=== PATIENT | male | born 1960 | race Caucasian/White ===

== ENCOUNTER 2019-05-26 15:51 | Emergency (ER) | payer MEDICAID ==
[~2019-05-26] VITALS: Ht 157.5 cm; Wt 66.2 kg
[2019-05-26 15:56] VITALS: BP 118/72
[2019-05-26] MEDS ORDERED: DICYCLOMINE HCL LIQUID 20 MG, ALUMINUM HYD/MAG/SIMETHICONE 30 ML, LIDOCAINE VISCOUS 2% ... PO ONE ×3 (16:05)
[2019-05-26 17:27] VITALS: BP 115/70
== END 2019-05-26 17:25 | disposition home or self-care (01) ==
LOC: MED 15:51
DX: K21.9 Gastro-esophageal reflux disease without esophagitis (principal); H61.21 Impacted cerumen, right ear; E11.9 Type 2 diabetes mellitus without complications; I10 Essential (primary) hypertension; Z98.890 Other specified postprocedural states
CPT/HCPCS: 99283

== ENCOUNTER 2019-06-01 15:33 | Inpatient (IN) | payer MEDICAID ==
[~2019-06-01] VITALS: Ht 142.2 cm; Wt 66.2 kg
[2019-06-01 15:38] VITALS: BP 119/84
--- NOTE | 2019-06-01 16:50 | NUR ---
PATIENT AMBULATED TO BED 12.
[2019-06-01] MEDS ORDERED: NACL 0.9% 1,000 ML IV ONE (17:05)
--- NOTE | 2019-06-01 17:20 | NUR ---
PATIENT OUT OF ROOM IN RADIOLOGY TELEGRAPHIC TYPEWRITER MECHANIC TO ATTEMPT ABG AT A LATER TIME
--- NOTE | 2019-06-01 17:34 | NUR ---
PT ARRIVED TO ED C/O INTERMITTENT EPIGASTRIC PAIN X 1 WEEK. RATES PAIN LEVEL 8/10 AND DESCRIBES IT BURNING. ABD SOFT, AND FLAT, BS PRESENT IN ALL 4 QUADS. NO RESP DISTRESS NOTED. VS STABLE. NO N,V,D. PT FAMILY MEMBER AT BEDSIDE SAYS' "HE HASNT BEEN HUNGRY LATELY." PMH: DM, HIGH CHOLSTEROL NKA.
--- NOTE | 2019-06-01 17:52 | NUR ---
ABG COMPLETED PRESSURE APPLIED AT PUNCTURE SITE NO EVIDENCE OF HEMATOMA
[2019-06-01 17:59] LABS: BASOPHILS % (AUTO) 0.4 % (0.0-2.0); EOSINOPHILS # (AUTO) 0.5 K/uL (0-0.4); EOSINOPHILS % (AUTO) 5.3 % (0.0-4.0); HEMATOCRIT 35.7 % (36-52); HEMOGLOBIN 11.7 g/dL (12.0-18.0); LYMPHOCYTES # (AUTO) 0.5 K/uL (2.0-11.5); LYMPHOCYTES % (AUTO) 4.8 % (20.5-51.1); MEAN CORPUSCULAR HEMOGLOBIN 31 pg (27-31); MEAN CORPUSCULAR HGB CONC 33 g/dL (33-37); MEAN CORPUSCULAR VOLUME 92.8 fL (80-94); MONOCYTES # (AUTO) 0.7 K/uL (0.8-1.0); MONOCYTES % (AUTO) 6.9 % (1.7-9.3); NEUTROPHILS # (AUTO) 8.2 K/uL (1.8-7.7); NEUTROPHILS % (AUTO) 82.6 % (42.2-75.2); PLATELET COUNT (AUTO) 351 K/uL (140-450); RED BLOOD CELL COUNT(AUTO) 3.84 MIL/uL (4.20-6.10); WHITE BLOOD COUNT (AUTO) 9.9 K/uL (4.8-10.8)
[2019-06-01] MEDS ORDERED: PIPERACILLIN/TAZOBACTAM 3.375 GM in DEXTROSE 5% 50 ML IV ONE (18:05)
[2019-06-01] MEDS ORDERED: PIPERACILLIN/TAZOBACTAM 3.375 GM VIAL IV ONE (18:10)
[2019-06-01] MEDS ORDERED: DOCUSATE SODIUM 100 MG GELCAP PO PRN (18:20)
[2019-06-01] MEDS ORDERED: HYDROcodone/APAP 7.5/325 MG 1 TAB PO PRN (18:20)
[2019-06-01] MEDS ORDERED: ONDANSETRON 4 MG/2 ML VIAL IM/IVP PRN (18:20)
[2019-06-01 18:24] LABS: ANION GAP 14.6 (8-16); CREATININE 0.9 mg/dL (0.7-1.3); POTASSIUM 3.6 mmol/L (3.5-5.1)
[2019-06-01 18:28] LABS: ALBUMIN 2.6 g/dL (3.4-5.0); TOTAL BILIRUBIN 1.4 mg/dL (0.0-1.0)
[2019-06-01] MEDS ORDERED: ALBUTEROL SULFATE/IPRATROPIU 3 ML SOL IH PRN (18:40)
[2019-06-01] MEDS ORDERED: TICA90TA PO (18:52)
[2019-06-01] MEDS ORDERED: METF850T PO (18:52)
[2019-06-01] MEDS ORDERED: CHOL200072 PO (18:52)
[2019-06-01] MEDS ORDERED: OMEP20TC10 PO (18:52)
[2019-06-01] MEDS ORDERED: ATOR20TA PO (18:52)
[2019-06-01] MEDS ORDERED: NITROGLYCERIN 0.4 MG TAB SL ONE (19:05)
--- NOTE | 2019-06-01 19:05 | NUR ---
PT HAS PRODUCTVE COUGH.
--- NOTE | 2019-06-01 19:10 | NUR ---
RECEIVED REPORT FROM JEREMY GILES. PT IN BED RESTING VSS AT THIS TIME. DAUGHTER AT BEDSIDE. WILL CONTINUE TO MONITOR CLOSELY.
[2019-06-01] MEDS: NACL 0.9% 1,000 ML IV SCH (19:25)
[2019-06-01 19:33] LABS: PROTHROMBIN TIME 11.1 secs (10.8-13.4)
[2019-06-01 20:00] LABS: CHOL/HDL RATIO 2.9 (1-4.5); MAGNESIUM 1.4 mg/dL (1.8-2.4); THYROID STIMULATING HORMONE 1.46 uIU/mL (0.34-3.74)
[2019-06-01] MEDS ORDERED: POLYETHYLENE GLYCOL 17 GM/PKT PO SCH (20:00)
--- NOTE | 2019-06-01 20:35 | NUR ---
PATIENT ADMITTED UNDER THE CARE OF DR. ALISON CONNELL. BELONGINGS LIST COMPLETED. PT TRANSPORTED VIA [facility] AT THIS TIME. PT WILL GO TO TELEMETRY ROOM 105A. BEDSIDE REPORT GIVEN TO JEREMY MEJIA.
[2019-06-01] MEDS ORDERED: hePARIN / DEXT 5% PREMIX 250 ML IV SCH (20:45)
[2019-06-01] MEDS ORDERED: HEPARIN PER PHARMACY MC PRN (20:45)
[2019-06-01 20:57] LABS: FREE T4 (FREE THYROXINE) 1.59 ng/dL (0.76-1.46)
[2019-06-01 21:00] VITALS: BP 150/80
[2019-06-01] MEDS: ALBUTEROL SULFATE/IPRATROPIU 3 ML SOL IH PRN (21:03)
--- NOTE | 2019-06-01 21:20 | NUR ---
2102 PATIENT GIVEN HHNTX. PATIENT HAS SOB DUE TO RALES BILAT. UNABLE TO DO INCENTIVE SPIROMETER DUE TO SOB. PATIENT PLACED ON 6 L OXYMIZER.PATIENT UNABLE TO GIVE SPUTUM SAMPLE AT THIS TIME
[2019-06-01] MEDS ORDERED: FUROSEMIDE 20 MG/2 ML VIAL IVP SCH (21:30)
[2019-06-01] MEDS ORDERED: MAG SULF 2000 MG/WATER PREMIX 50 ML IV SCH (21:30)
[2019-06-01] MEDS ORDERED: METOPROLOL SUCCINATE 50 MG TABER PO SCH (21:30)
[2019-06-01] MEDS: DOCUSATE SODIUM 100 MG GELCAP PO SCH (21:59)
--- NOTE | 2019-06-01 22:00 | NUR ---
ADMITTED 58 Y.O.M FROM ER.PLACED ON BED.TELE APPLIED AND SHOWING ST.RESP.IS SLIGHTLY LABORED.CALL SYSTEM EXPLAINED AND IN REACH.IVF OF NS AT 100ML/H THAT STARTED IN ER STILL INFUSING.CARE PLAN DISCUSSED W/PT AND FAMILY.THEY VERBALIZED UNDERSTANDINGS.WILL CONTINUE MONITORING.
[2019-06-01] MEDS: hePARIN / DEXT 5% PREMIX 250 ML IV SCH (22:29)
[2019-06-01] MEDS: BLOOD GLUCOSE MONITORING 1 DEV DEV FS SCH (22:30)
--- NOTE | 2019-06-01 23:00 | NUR ---
HEPARIN DRIP AT RATE OF 600ML/H STARTED AFTER 3000 UNITS BOLUS IV GIVEN.WILL MONITOR PTT.
[2019-06-02] MEDS ORDERED: PANTOPRAZOLE 40 MG INJ VIAL IVP SCH (00:50)
[2019-06-02] MEDS: guaiFENesin 20 MG/ML UDC PO PRN ×2 (01:31→17:15)
--- NOTE | 2019-06-02 02:00 | NUR ---
HAD COUGH MED GIVEN ALSO ONE DOSE OF PROTONIX IVP GIVEN FOR EPIGASTRIC PAIN.HR STILL IS ST.
[2019-06-02] MEDS ORDERED: INFLUENZA VACCINE QUAD 0.5 ML SYR IMVAC PRN (02:40)
[2019-06-02] MEDS ORDERED: PNEUMOCOCCAL VACCINE 23 MCG/0.5 ML VIAL IMVAC PRN (02:40)
[2019-06-02 03:43] LABS: APPEARANCE,URINE CLEAR (CLEAR); BILIRUBIN,URINE NEGATIVE (NEGATIVE); BLOOD, URINE NEGATIVE (NEGATIVE); COLOR,URINE YELLOW (YELLOW); LEUKOCYTE ESTERASE ,URINE NEGATIVE (NEGATIVE); NITRITE, URINE NEGATIVE (NEGATIVE); PH,URINE 5.5 (5.0-9.0); UGLUCOSE NEGATIVE (NEGATIVE)
[2019-06-02 04:00] VITALS: BP 146/82
[2019-06-02 04:18] LABS: BARBITURATE, URINE NEG. ng/ml (NEG <=200); BENZODIAZEPINE, URINE NEG. ng/mL (NEG <=200); CANNABINOID, URINE NEG. ng/mL (NEG <=50); COCAINE, URINE NEG. ng/mL (NEG <=300); OPIATE, URINE NEG. ng/mL (NEG <=2000); PHENCYCLIDINE SCREEN,URINE NEG. ng/mL (NEG <=25)
[2019-06-02] MEDS ORDERED: PIPERACILLIN/TAZOBACTAM 3.375 GM VIAL IV ONE (04:48)
[2019-06-02] MEDS ORDERED: PIPERACILLIN/TAZOBACTAM 3.375 GM in DEXTROSE 5% 50 ML IV SCH (05:00)
[2019-06-02] MEDS: hePARIN / DEXT 5% PREMIX 250 ML IV SCH ×3 (05:38→21:35)
--- NOTE | 2019-06-02 06:00 | NUR ---
PTT=33.6 3000HEPARIN BOLUS GIVEN THEN INCREASED RATE TO 800UNITS/H.NEXT PTT WILL BE AT 1135.RESP IS BETTER THAN LAST NIGHT.IS ON O2 .NO DISTRESS NOTED NOW.SU=[id number] DIDN'T COVER PT IS NPO FOR ABD.US WILL ENDORSE TO AM NURSE TO CHECK BS AFTER US DONE .
[2019-06-02 06:07] LABS: T4 (THYROXINE) 8.1 ug/dL (4.5-12.0)
[2019-06-02 06:51] LABS: ANION GAP 15.4 (8-16); CARBON DIOXIDE 24.3 mmol/L (21-32); MAGNESIUM 1.7 mg/dL (1.8-2.4); POTASSIUM 3.7 mmol/L (3.5-5.1)
[2019-06-02 06:53] LABS: BASOPHILS % (AUTO) 0.3 % (0.0-2.0); EOSINOPHILS % (AUTO) 0.2 % (0.0-4.0); HEMATOCRIT 32.8 % (36-52); HEMOGLOBIN 10.7 g/dL (12.0-18.0); LYMPHOCYTES # (AUTO) 0.3 K/uL (2.0-11.5); LYMPHOCYTES % (AUTO) 1.7 % (20.5-51.1); MEAN CORPUSCULAR HEMOGLOBIN 30 pg (27-31); MEAN CORPUSCULAR HGB CONC 33 g/dL (33-37); MEAN CORPUSCULAR VOLUME 92.7 fL (80-94); MONOCYTES # (AUTO) 0.6 K/uL (0.8-1.0); MONOCYTES % (AUTO) 3.7 % (1.7-9.3); NEUTROPHILS # (AUTO) 14.8 K/uL (1.8-7.7); NEUTROPHILS % (AUTO) 94.1 % (42.2-75.2); PLATELET COUNT (AUTO) 335 K/uL (140-450); RED BLOOD CELL COUNT(AUTO) 3.53 MIL/uL (4.20-6.10); RED CELL DISTRIBUTION WIDTH 13.2 % (11.6-13.7); WHITE BLOOD COUNT (AUTO) 15.8 K/uL (4.8-10.8)
--- NOTE | 2019-06-02 07:02 | NUR ---
RECEIVED REPORT FROM PLASTIC SHAPER NURSE. AAOX4, RESTING IN BED, NO C/O PAIN AT THIS TIME. PT ON TELE MONITOR. IV ON LT AC 20 GA AND LT FA 22 GA RUNNING IVF PER ORDER. BS ACTIVE, SOFT ABDOMEN. SKIN IS INTACT, WARM TO TOUCH. REVIEWED POC WITH PT, PT VERBALIZED UNDERSTANDING.
[2019-06-02] MEDS: ALBUTEROL SULFATE/IPRATROPIU 3 ML SOL IH PRN ×2 (07:08→13:06)
--- NOTE | 2019-06-02 07:25 | NUR ---
PT RECEIVED BREATHING TREATMENT. PT RESPIRATIONS EVEN AND UNLABORED ON 6L VIA OXIMIZER.
[2019-06-02] MEDS: BLOOD GLUCOSE MONITORING 1 DEV DEV FS SCH ×4 (07:34→21:00)
[2019-06-02 08:00] VITALS: BP 112/72
--- NOTE | 2019-06-02 08:02 | NUR ---
PATIENT HAS BEEN SCREENED AND CATEGORIZED MODERATE NUTRITION RISK. PATIENT WILL BE SEEN WITHIN 3-5 DAYS OF ADMISSION. 06/04/19 06/06/[address]
--- NOTE | 2019-06-02 08:33 | NUR ---
PT UNDERGOING ABDOMINAL ULTRASOUND AT THIS TIME, PT HAS NO SIGNS OF DISTRESS.
[2019-06-02] MEDS ORDERED: FUROSEMIDE 20 MG/2 ML VIAL IVP SCH ×3 (09:00→21:00)
[2019-06-02] MEDS: DOCUSATE SODIUM 100 MG GELCAP PO SCH ×2 (09:01→22:06)
[2019-06-02] MEDS: ASPIRIN 81 MG TAB.CHEW PO SCH (09:01)
[2019-06-02] MEDS: METOPROLOL 25 MG TAB PO SCH ×2 (09:02→21:00)
[2019-06-02] MEDS: ATORVASTATIN 20 MG TAB PO SCH (09:02)
[2019-06-02] MEDS: metFORMIN 850 MG TAB PO SCH (09:03)
[2019-06-02] MEDS: LISINOPRIL 5 MG TAB PO SCH (09:03)
[2019-06-02] MEDS: PANTOPRAZOLE 40 MG TABEC PO SCH (09:06)
--- NOTE | 2019-06-02 09:06 | NUR ---
ADMINISTERED MORNING MEDICATIONS PER ORDER, PT AWARE OF INDICATIONS AND POTENTIAL SIDE EFFECTS OF MEDICATIONS. PT HAS NO SIGNS OF DISTRESS AT THIS TIME.
[2019-06-02] MEDS ORDERED: NACL 0.9% 500 ML IV SCH (10:30)
[2019-06-02] MEDS ORDERED: MAGNESIUM OXIDE 400 MG TAB PO SCH (11:00)
[2019-06-02] MEDS: NACL 0.9% 1,000 ML IV SCH (11:30)
[2019-06-02] MEDS: AZITHROMYCIN 250 MG in DEXTROSE 5% 250 ML IV SCH (11:51)
--- NOTE | 2019-06-02 11:51 | NUR ---
RECEIVED IV ZITHROMAX FROM PHARMACY, PT IS AWARE OF INDICATIONS AND POTENTIAL SIDE EFFECTS. DAUGHTER AT BEDSIDE.
[2019-06-02] MEDS: INSULIN LISPRO SLIDING SCALE 100 UNITS/ML VIAL SUBQ PRN ×2 (11:54→22:20)
[2019-06-02 12:00] VITALS: BP 119/73
--- NOTE | 2019-06-02 13:28 | NUR ---
PT SATURATION DECREASED TO 87% OXYGEN INCREASED TO 8LPM OXYMIZER. SPO2 NOW 92%. WILL CONTINUE TO MONITOR.
--- NOTE | 2019-06-02 13:40 | NUR ---
PER TRINA/RESPIRATORY THERAPIST, PT'S O2 WAS INCREASED TO 8L VIA OXIMIZER D/T DECREASED O2 SATURATION. WILL CONTINUE TO MONITOR.
[2019-06-02] MEDS ORDERED: MORPHINE SULFATE 2 MG/ML SYR IVP PRN (13:45)
--- NOTE | 2019-06-02 14:08 | NUR ---
STARTED IV ROCEPHIN PER ORDER, PT AWARE OF INDICATIONS AND POTENTIAL SIDE EFFECTS. PT C/O MILD, TOLERABLE PAIN AFTER LUNCH. PER DR. ORR, PT WILL BE ON NPO DIET, PT NOTIFIED.
[2019-06-02 16:00] VITALS: BP 116/76
--- NOTE | 2019-06-02 17:10 | NUR ---
PER DR. ORR, HOLD [employer] COVERAGE FOR BLOOD SUGAR 180 D/T PT BEING ON NPO DIET.
--- NOTE | 2019-06-02 19:05 | NUR ---
ENDORSED PT TO MANAGEMENT AIDE NURSE FOR CONTINUITY OF CARE.
--- NOTE | 2019-06-02 19:05 | NUR ---
RECEIVED REPORT FROM ANYA RN DAYSHIFT NURSE AT BEDSIDE FOR CONTINUITY OF CARE, PT IN BED IN STABLE CONDITION.
[2019-06-02] MEDS: ALBUTEROL SULFATE/IPRATROPIU 3 ML SOL IH SCH (19:06)
[2019-06-02] MEDS ORDERED: KETOROLAC 15 MG/ML VIAL IVP PRN (19:10)
[2019-06-02 20:00] VITALS: BP 116/72
--- NOTE | 2019-06-02 20:00 | NUR ---
PT IN BED SITTING AT SIDE OF BED. PT IS AOX4 GREENLANDIC SPEAKING, SKIN INTACT. HE IS ALERT AND ON OXIDIZER STATING AT 89% OXYMIZER BUMPED UP TO 9 LITERS AND PT STATING 93% ON 9 LITERS VIA OXYMIZER. PT LUNG SOUNDS DIMINISHED BILATERALLY WITH CRACKLES AT BASE OF RIGHT LUNG. PT BREATHING TACHYPNEA AND SOMEWHAT SHALLOW. PT ALSO CONTINUES ON HEPARIN GTT AT 900MLS/HR.
--- NOTE | 2019-06-02 21:00 | NUR ---
PT IN BED ASKING FOR SOME FOOD AND IS CURRENTLY NPO AT THIS TIME. PT GIVEN ORDERED LASIK AND COLACE. PTT DRAWN AT BEDSIDE AWAITING RESULTS.
--- NOTE | 2019-06-02 21:07 | NUR ---
RECEIVED CRITICAL LAB OF TROPONIN 0.735 FROM [facility] IN THE LAB. WILL INFORM MD TIDWELL. ALSO RECEIVED CURRENT PTT WHICH WAS 43.2 BOLUS OF HEPARIN GIVEN 1500 UNITS PER S/S PROTOCOL AND INCREASED DRIP BY 200MLS/HR FOR A RTE OF 1000 UNITS PER HR.( PER PROTOCOL).
--- NOTE | 2019-06-02 21:30 | NUR ---
SPOKE WITH MD TIDWELL REGARDING DIET ORDER AND CRITICAL LAB RECEIVED AT 2109. OF TROPONIN LEVEL. MD AWARE THAT TROPIN IS TRENDING DOWN, SHE ORDERED A MECHANICAL SOFT CCHO-60 DIET AND DC'D HEPARIN GTT PER CARDIO CONSULT REQUEST FROM DR. NEWBERRY.
[2019-06-03] VITALS (31 sets, daily range): BP systolic 100–128; BP diastolic 67–84
--- NOTE | 2019-06-03 00:30 | NUR ---
PT C/O SOB. RT CALLED AT BEDSIDE. V/S FOLLOWS T 98.0 P 104 R 30 WITH 9 LITERS OF SUPPLEMENTAL 02 VIA OXYMIZER. 02 IS 90% WITH SUPPLEMENTAL 02 VIA OXYMIZER B/P 110/68. PT PLACED ON MD DIANN MEDRANO THERE EVALUATING PT. RT DRAWING ABG BLOOD GAS.
--- NOTE | 2019-06-03 01:14 | NUR ---
TRANSFER FROM [facility] TO ICU BY [facility]T [facility]WYER AND [facility] NURSE VIA [facility]. PATIENT TRANSFER FREE OF INJURY. PATIENT RR ELEVATED TO 30S-40S ON TRANSFER. BLOOD SUGAR 182. 97.2-128/82-44-107. SKIN COLD AND CLAMMY TO TOUCH. DUSKY YELLOWISH SKIN COLOR NOTED.PATIENT ON NON REBREATHER MASK @ 15 L OXYGEN. PT ORIENTED X3.PERIPHERAL IV TO LT AC G20 AND LT F/A G22 INTACT.PT INCONTINENT OF URINE.DENIES PAIN WHEN ASKED.
--- NOTE | 2019-06-03 01:15 | NUR ---
TRANSFERRED PT FROM [facility] TO ICU, GAVE REPORT TO MATEUSZ CELL COVERER NURSE AT BEDSIDE FOR CONTINUITY OF CARE, PT TRANSFERRED BY BED WITH REBREATHER ON AND RT AT BEDSIDE AND ALL BELONGINGS AT BEDSIDE. WILL ENDORSE MACHINE TAILER TO CALL FAMILY REGARDING TRANSFER.
[2019-06-03] MEDS ORDERED: PANTOPRAZOLE 40 MG INJ VIAL IVP SCH (01:30)
--- NOTE | 2019-06-03 01:42 | NUR ---
DR TIDWELL AT BEDSIDE.
[2019-06-03] MEDS: NACL 0.9% 1,000 ML IV SCH (01:53)
--- NOTE | 2019-06-03 02:02 | NUR ---
DR TIDWELL AT BEDSIDE; PT TRYING TO SAY SOMETHING IN NAURUAN.DR TIDWELL LEFT AND NURSES CALLED LANGUAGE LINE EXERCISE EQUIPMENT REPAIR TECHNICIAN; SPOKE WITH # [id number]; NURSE ASKED EXERCISE EQUIPMENT REPAIR TECHNICIAN WHAT PT WANTS, PT TRYING TO SAY SOMETHING WHILE TRYING TO SIT UP AT SIDE OF BED. PT BECAME RESTLESS AND SOB ON NON REBREATHER 15LPM; NOTED PT LEANING FORWARD AND THEN BACKWARD WITH EYES ROLLED UP; NOTED HR WENT DOWN TO 30'S; PT UNRESPONSIVE; AGONAL BREATHING AND BECAME MORE DUSKY IN COLOR. CALLED PHYSICIAN AND ER DOCTOR ALSO CAME; CXR; ABG; BLOOD DRAWS; EKG DONE.
--- NOTE | 2019-06-03 02:15 | NUR ---
GIN ORTA ORDERED EKG.
--- NOTE | 2019-06-03 02:15 | NUR ---
PHONE CALL TO PTS , AJAY. NO ANSWER, LEFT MESSAGE TO CALL BACK.AWAITING REPLY
[2019-06-03] MEDS ORDERED: hePARIN / DEXT 5% PREMIX 250 ML IV SCH ×2 (02:20→03:05)
--- NOTE | 2019-06-03 02:23 | NUR ---
GIN ORTA ORDERED ULTRASOUND.
--- NOTE | 2019-06-03 02:26 | NUR ---
GIN ORTA ORDERED XRAY. GIN ORTA AT BEDSIDE
[2019-06-03] MEDS ORDERED: DICYCLOMINE HCL LIQUID 10 MG/5 ML UDC PO SCH (02:30)
[2019-06-03] MEDS ORDERED: LIDOCAINE VISCOUS 2% 20 ML UDC PO SCH (02:30)
[2019-06-03] MEDS ORDERED: ALUMINUM HYD/MAG/SIMETHICONE 30 ML UDC PO SCH (02:30)
--- NOTE | 2019-06-03 02:30 | NUR ---
CHEST XRAY ORDERED BY ER . ER MD LOOKED AT CHEST XRAY WHEN FINISHED.
--- NOTE | 2019-06-03 02:32 | NUR ---
PHARMACY CALLED. STATES SHE ALREADY ORDERED STAT PTT ORDER AND ASKED FROM DR. TIDWELL TO ORDER HEPARIN PER PROTOCOL. NOTIFIED DIANN AT 0233. WILL CONTINUE TO MONITOR.
--- NOTE | 2019-06-03 02:37 | NUR ---
ER MD STATES TO TAKE OFF THE OXIMIZER AND KEEP THE NON REBREATHER MASK ON PATIENT AT THIS TIME. 106-94%-51-125/83.
--- NOTE | 2019-06-03 03:00 | NUR ---
LABORATORY AT BEDSIDE WITH RT TO DRAW ABG AND BLOOD DRAW. PATIENT TOLERATING WELL. PATIENT ON BIPAP AT THIS TIME. SAFETY MEASURES IN PLACE. WILL CONTINUE TO MONITOR.
--- NOTE | 2019-06-03 03:01 | NUR ---
DR TIDWELL SPOKE WITH PTS DAUGHTER WHO SPEAKS [place] AT THIS TIME
--- NOTE | 2019-06-03 03:18 | NUR ---
PATIENT ON BIPAP, RT, TECH, AND DR. TIDWELL AT BEDSIDE. CALLED DRY CLEANING MANAGER TO ASSIST PATIENT, PATIENT STATES CANNOT SPEAK TO DRY CLEANING MANAGER RIGHT NOW, CHEST PAIN. MEDICATION GIVEN PER MD ORDERS.
[2019-06-03 03:21] LABS: HEMATOCRIT 29.5 % (36-52); HEMOGLOBIN 9.7 g/dL (12.0-18.0); MEAN CORPUSCULAR HEMOGLOBIN 31 pg (27-31); MEAN CORPUSCULAR HGB CONC 33 g/dL (33-37); MEAN CORPUSCULAR VOLUME 93.9 fL (80-94); PLATELET COUNT (AUTO) 326 K/uL (140-450); RED BLOOD CELL COUNT(AUTO) 3.14 MIL/uL (4.20-6.10); RED CELL DISTRIBUTION WIDTH 13.1 % (11.6-13.7); WHITE BLOOD COUNT (AUTO) 19.9 K/uL (4.8-10.8)
[2019-06-03] MEDS ORDERED: MORPHINE SULFATE 2 MG/ML SYR ONE (03:29)
--- NOTE | 2019-06-03 03:40 | NUR ---
MD TIDWELL AT BEDSIDE. RT AT BEDSIDE, CHARGE NURSE AT BEDSIDE AND ICU NURSE. PATIENT STATES CHEST HURTS. POINTING TO LEFT SIDE OF THE CHEST. MD STATES GIVE 1MG MORPHINE IVP DUE TO PATIENT COMPLAINING OF PAIN. ORDER IN EMAR. GIVEN MEDICATION ORDERED PER MD. PATIENT ON BIPAP AT THIS TIME. STATES UNABLE TO SPEAK TO INJECTION PRESS OPERATOR AT THIS TIME BECAUSE HE IS IN PAIN. MOON CATHETER INSERTED AT THIS TIME WELL. YELLOW URINE FLOWING THROUGH TUBING. 25 CC URINE NOTED. BED IN LOWEST POSITION. SIDE RAILS UP. PATIENT LYING DOWN IN BED. WILL CONTINUE TO MONITOR. Addendum: 06/03/19 at 0640 by Elba Cristina RN CLEANING LABORER CALLED RACHID # [id number]
[2019-06-03 03:44] LABS: ANION GAP 18.1 (8-16); CARBON DIOXIDE 22.7 mmol/L (21-32); CREATININE 1.6 mg/dL (0.7-1.3); POTASSIUM 3.8 mmol/L (3.5-5.1)
--- NOTE | 2019-06-03 03:45 | NUR ---
MOON CATHETER PLACED BY CHARGE NURSE. YELLOW URINE NOTED IN TUBING TO MOON BAG. WILL CONTINUE TO MONITOR. PATIENT INFORMED OF PROCEDURE TAKING PLACE. DENIES PAIN. WILL CONTINUE TO MONITOR.
[2019-06-03 03:48] LABS: MAGNESIUM 1.6 mg/dL (1.8-2.4); PHOSPHORUS 5.5 mg/dL (2.5-4.9)
[2019-06-03 03:55] LABS: LYMPHOCYTES % (MANUAL) 0 % (20-46); MONOCYTES % (MANUAL) 1 % (5-12)
[2019-06-03] MEDS ORDERED: MORPHINE SULFATE 2 MG/ML SYR IVP SCH (04:00)
--- NOTE | 2019-06-03 04:10 | NUR ---
PER MD ORDERS, START HEPARIN DRIP .
--- NOTE | 2019-06-03 04:30 | NUR ---
SPOKE WITH RAMA; ORDERED TO RESTART HEPARIN DRIP; HEPARIN DRIP STARTED PER PROTOCOL ;VERIFIED BY JEREMY CHILD
[2019-06-03] MEDS ORDERED: HEPARIN PER PHARMACY MC PRN (04:55)
[2019-06-03] MEDS ORDERED: MAG SULF 2000 MG/WATER PREMIX 50 ML IV SCH (05:00)
[2019-06-03] MEDS: ALBUTEROL SULFATE/IPRATROPIU 3 ML SOL IH PRN (05:30)
--- NOTE | 2019-06-03 05:30 | NUR ---
DR TIDWELL AT PATIENT BEDSIDE. PATIENT 100% O2 SATURATION. FIO2 MOVED DOWN TO 80. BREATHING TX GIVEN AT THIS TIME. RT AT PATIENT BEDSIDE.
--- NOTE | 2019-06-03 05:41 | NUR ---
2103 placed patient on bipap due to sob. ipap 16 epap 8 rr 14 100% fio2.
[2019-06-03] MEDS: ALBUTEROL SULFATE/IPRATROPIU 3 ML SOL IH SCH ×3 (06:21→19:25)
--- NOTE | 2019-06-03 06:21 | NUR ---
REC'D PT ON MARLIN V60 BIPAP SETTINGS 16/8 RR 14 FIO2 80% ALARMS ON AND AUDIBLE AND AMBU BAG AT HOB BIPAP IS PLUGGED INTO RED OUTLET, NO HHN GIVEN PT IS SLEEPING WITH NO SIGNS OF DISTRESS NOTED AT THIS TIME B\S ARE COARSE BILATERALLY, PT IS WEARING MED FACE MASK.
--- NOTE | 2019-06-03 06:40 | NUR ---
JOSEPH CONNELL POTLURI AND DOMINGA PRESENT AT BEDSIDE.
--- NOTE | 2019-06-03 06:46 | NUR ---
BS CHECK 222. CHARGE NURSE CALLED DIANN STATES OK TO HOLD INSULIN AT THIS TIME. NPO AND ON NS IVF.
[2019-06-03] MEDS: BLOOD GLUCOSE MONITORING 1 DEV DEV FS SCH ×5 (06:47→22:51)
--- NOTE | 2019-06-03 07:07 | NUR ---
RECEIVED BEDSIDE REPORT FROM MATEUSZ PARADICHLOROBENZENE MACHINE OPERATOR RN, FOR CONTINUITY OF CARE. PATIENT IS AAOX4, LETHARGIC. PATIENT'S SKIN IS INTACT, WARM, DRY, AFEBRILE. HE HAS PERIPHERAL IV SITE TO RFA, 20 G, LAC, 20G, AND LFA 22 G. PATIENT HAS BIPAP IN PLACE, BREATHING IS TACHYPNEIC, EVEN AND UNLABORED. HE IS SR ON MONITOR, DENIES PAIN. PATIENT HAS MOON CATHETER IN PLACE. NO SIGNS OF DISTRESS NOTED. WILL CONTINUE TO MONITOR.
[2019-06-03] MEDS ORDERED: NACL 0.9% 250 ML IV SCH (08:04)
[2019-06-03] MEDS: DOCUSATE SODIUM 100 MG GELCAP PO SCH ×2 (08:35→21:13)
[2019-06-03] MEDS: ATORVASTATIN 20 MG TAB PO SCH (08:35)
[2019-06-03] MEDS: metFORMIN 850 MG TAB PO SCH (08:35)
[2019-06-03] MEDS: PANTOPRAZOLE 40 MG TABEC PO SCH (08:35)
[2019-06-03] MEDS: ASPIRIN 81 MG TAB.CHEW PO SCH (08:35)
[2019-06-03] MEDS: METOPROLOL 25 MG TAB PO SCH ×2 (08:35→21:13)
[2019-06-03] MEDS: LISINOPRIL 5 MG TAB PO SCH (08:36)
--- NOTE | 2019-06-03 08:43 | NUR ---
SCHEDULED MEDS ADMINISTERED, HELD BP MEDS SINCE PATIENT'S BP IS LOW. PATIENT TOLERATED PO MEDICATIONS WELL.
--- NOTE | 2019-06-03 10:05 | NUR ---
RESIDENT PHYSICIAN DR. ROJAS IN THE UNIT, UPDATES GIVEN ON PT. MADE AWARE OF PT'S TACHYPNEA: RR IN HIGH 30'S AT THIS TIME. SPO2 97% ON BIPAP I/E 05/02, RATE 14, FIO2 60%. NO NEW ORDER AT THIS TIME.
--- NOTE | 2019-06-03 10:42 | NUR ---
PATIENT'S FAMILY IS HERE, UPDATED ON PATIENT'S CONDITION
[2019-06-03] MEDS: AZITHROMYCIN 250 MG in DEXTROSE 5% 250 ML IV SCH (10:56)
--- NOTE | 2019-06-03 12:30 | NUR ---
DR. ROJAS AT BEDSIDE SPEAKING WITH FAMILY REGARDING PT'S CONDITION.
[2019-06-03] MEDS: PIPERACILLIN/TAZOBACTAM 3.375 GM in DEXTROSE 5% 50 ML IV SCH ×2 (13:02→21:54)
[2019-06-03] MEDS ORDERED: FUROSEMIDE 100 MG/10 ML VIAL IV SCH (14:20)
--- NOTE | 2019-06-03 14:22 | NUR ---
DR. HUITRON IS HERE TO EXAMINE PATIENT, UPDATED ON PATIENT'S CONDITION. WILL FOLLOW UP ON ANY ORDERS
--- NOTE | 2019-06-03 17:15 | NUR ---
PATIENT COMPLAINING OF MOUTH BEING DRY, PROVIDED PATIENT WITH WATERED MOUTH SWABS AND LIP MOISTURIZER. PATIENT TOLERATED WELL. PATIENT WAS REPOSITIONED FOR COMFORT IN A HIGH FOWLERS POSITION.
--- NOTE | 2019-06-03 19:15 | NUR ---
ENDORSED CONTINUITY OF CARE TO LAZ BILINGUAL INSIDE SALES REPRESENTATIVE RN. NO SIGNS OF DISTRESS NOTED.
--- NOTE | 2019-06-03 19:15 | NUR ---
RECEIVED CHANGE OF SHIFT REPORT FROM AM NURSE AT PATIENT'S BEDSIDE. PATIENT IS AWAKE AND A/0 X4. NO REPORTS OF PAIN AT THIS TIME. ON BIPAP /, RR 14, FIO2 50%. PATIENT IS CURRENTLY TACHYPNEIC WITH A RATE OF 50. LUNG SOUNDS AUSCULTATED AND ARE CLEAR THROUGHOUT ALL LUNG SORIA. S1S2 AUSCULTATED WITH NSR ON DIRECTOR OF INFECTION CONTROL. BILATERAL UPPER AND LOWER EXTREMITIES 2+ IN STRENGTH AND NORMAL ROM. SKIN IS WARM, DRY AND INTACT WITH NO EDEMA. ABDOMEN IS SOFT, ROUND AND NONTENDER. PATIENT HAS MOON CATHETER IN PLACE WITH CLEAR YELLOW URINE. NO BOWEL MOVEMENT AT THIS TIME, BUT ACTIVE BOWEL SOUNDS AUSCULTATED IN ALL QUADRANTS. RIGHT AC 20 GAUGE PATENT PERIPHERAL IV - DRESSING/SITE DRY AND INTACT AND SALINE LOCKED. RIGHT FOREARM 20 GAUGE PATENT PERIPHERAL IV - DRESSING/SITE DRY AND INTACT AND SALINE LOCKED. LEFT FOREARM 22 GAUGE PATENT PERIPHERAL IV - DRESSING/SITE DRY AND INTACT AND SALINE LOCKED. SIDERAILS UP, BED IN LOW POSITION, AND PATIENT DOESN'T NEED ANYTHING AT THIS TIME. WILL CONTINUE TO MONITOR.
--- NOTE | 2019-06-03 19:33 | NUR ---
ABG results reported to Dr Barboza, pt presenting with tachypnea, adjusted bipap settings to patient comfort, hhn tx given, tolerated well, will cont to monitor.
--- NOTE | 2019-06-03 20:00 | NUR ---
PATIENT'S FAMILY AT BEDSIDE. FAMILY WAS UPDATED ON PATIENT'S LATEST ABG RESULTS. THEY HAVE NO FURTHER QUESTIONS OR CONCERNS AT THIS TIME.
--- NOTE | 2019-06-03 21:00 | NUR ---
SPOKE WITH DR. HRARIS ON THE PHONE AND INFORMED HIM, PATIENTS BGL IS 212. HE GAVE ME PERMISSION TO GIVE THE PRESCRIBED INSULIN PER SLIDING SCALE PROTOCOL.
[2019-06-03] MEDS: INSULIN LISPRO SLIDING SCALE 100 UNITS/ML VIAL SUBQ PRN (21:04)
--- NOTE | 2019-06-03 21:20 | NUR ---
DR HARRIS AT BEDSIDE, ASSESSING PATIENT AND SPEAKING WITH FAMILY MEMBERS. WILL CONTINUE TO MONITOR PATIENT.
--- NOTE | 2019-06-03 22:00 | NUR ---
FAMILY LEFT. PATIENT NOW WATCHING TV, AND NOT NEEDING ANYTHING AT THIS TIME. REMINDED PATIENT TO PRESS CALL LIGHT BUTTON IF HE NEEDS ANYTHING AT ALL.
--- NOTE | 2019-06-03 23:49 | NUR ---
PATIENT ASLEEP WITH NO ACUTE CHANGES IN VITAL SIGNS. WILL CONTINUE TO MONITOR.
[2019-06-04] VITALS (71 sets, daily range): BP systolic 66–155; BP diastolic 29–89
--- NOTE | 2019-06-04 01:40 | NUR ---
PATIENT ACTIVATED CALL LIGHT. NEEDED HIS BIPAP MASK ADJUSTED AND WANTED SOME ICE CHIPS. BIPAP MASK NOW FITS WELL AND IS NO LONGER LEAKING AIR. WILL CONTINUE TO MONITOR PATIENT
--- NOTE | 2019-06-04 03:45 | NUR ---
PATIENT ACTIVATED CALL LIGHT. NEEDED HIS BIPAP MASK ADJUSTED AGAIN AND WANTED SOME MORE ICE CHIPS. BIPAP MASK NOW FITS WELL AND IS NO LONGER LEAKING AIR. WILL CONTINUE TO MONITOR PATIENT
[2019-06-04] MEDS: PIPERACILLIN/TAZOBACTAM 3.375 GM in DEXTROSE 5% 50 ML IV SCH ×3 (05:01→20:51)
[2019-06-04 05:45] LABS: HEMATOCRIT 27.5 % (36-52); HEMOGLOBIN 9.1 g/dL (12.0-18.0); MEAN CORPUSCULAR HEMOGLOBIN 31 pg (27-31); MEAN CORPUSCULAR HGB CONC 33 g/dL (33-37); MEAN CORPUSCULAR VOLUME 92.5 fL (80-94); PLATELET COUNT (AUTO) 265 K/uL (140-450); RED BLOOD CELL COUNT(AUTO) 2.97 MIL/uL (4.20-6.10); RED CELL DISTRIBUTION WIDTH 13.2 % (11.6-13.7); WHITE BLOOD COUNT (AUTO) 14.9 K/uL (4.8-10.8)
--- NOTE | 2019-06-04 05:55 | NUR ---
ASSISTED PATIENT WITH AM CARE. PATIENT WANTED MORE ICE CHIPS. WILL CONTINUE TO MONITOR PATIENT
[2019-06-04 06:02] LABS: ANION GAP 12.7 (8-16); CARBON DIOXIDE 28.1 mmol/L (21-32); CREATININE 1.4 mg/dL (0.7-1.3); POTASSIUM 3.8 mmol/L (3.5-5.1)
[2019-06-04 06:07] LABS: MAGNESIUM 2.2 mg/dL (1.8-2.4); PHOSPHORUS 3.4 mg/dL (2.5-4.9)
[2019-06-04] MEDS: ALBUTEROL SULFATE/IPRATROPIU 3 ML SOL IH SCH ×3 (06:26→19:10)
--- NOTE | 2019-06-04 06:26 | NUR ---
RECEIVED PT ON PHILLPS V60 ON DOCUMENTED SETTINGS, ALARMS ARE ON AND AUDIBLE, PT IN HF IRRITABLE, WEARING F\F MASK SIZE MED. BS COARSE, HHN GIVEN I\L WITH 3 MG DUONEB, BMV HOB BIPAP PLUGGED INTO RED OUTLET
[2019-06-04 07:01] LABS: BASOPHILS % (MANUAL) 0 % (0-2); EOSINOPHILS % (MANUAL) 0 % (0-4); LYMPHOCYTES % (MANUAL) 2 % (20-46); MONOCYTES % (MANUAL) 2 % (5-12)
--- NOTE | 2019-06-04 07:01 | NUR ---
RECEIVED BEDSIDE REPORT FROM LAZ SYNTHETIC FILAMENT EXTRUDER RN, FOR CONTINUITY OF CARE. PATIENT IS AAOX4, LETHARGIC. PATIENT'S SKIN IS INTACT, WARM, DRY, AFEBRILE. HE HAS PERIPHERAL IV SITE TO RFA, 20 G, LAC, 20G, AND LFA 22 G. PATIENT HAS BIPAP IN PLACE, BREATHING IS TACHYPNEIC, EVEN AND LABORED. HE IS ST ON MONITOR, DENIES PAIN. PATIENT HAS MOON CATHETER IN PLACE. WILL CONTINUE TO MONITOR.
--- NOTE | 2019-06-04 07:32 | NUR ---
DR. CONNELL AND RESIDENT PHYSICIANS AT BEDSIDE, UPDATED ON PATIENT'S CONDITION
[2019-06-04] MEDS ORDERED: MIDAZOLAM MDV 50 MG in NACL 0.9% 40 ML IV PRN ×3 (07:50→08:33)
--- NOTE | 2019-06-04 07:52 | NUR ---
PATIENT'S AND DAUGHTER IS HERE TO SEE PATIENT.
--- NOTE | 2019-06-04 08:00 | NUR ---
IS HERE TO TALK TO FAMILY REGARDING PATIENT'S STATUS. Cued LAB AID USED, LAB AID'S NAME IS KIESHA ([id number]). DR. ROJAS DISCUSSED INTUBATION WITH PATIENT'S . ALL FAMILY'S QUESTIONS WERE ANSWERED, PATIENT AND PATIENT'S AGREED FOR INTUBATION.
--- NOTE | 2019-06-04 08:05 | NUR ---
DR. DELGADO IS HERE TO INTUBATE PATIENT
--- NOTE | 2019-06-04 08:10 | NUR ---
PT INTBATED BY DR DELGADO SIZE 7.5 25 CM ANCHOR FAST IN PLACE CXR ORDERED
--- NOTE | 2019-06-04 08:15 | NUR ---
PT PLACED ON CARESCAPE ON DOCMENTED SETTINGS, ALARMS ARE ON AND AUDIBLE, PTS ET TUBE IS SECURE 7.5 25 CM PT IN HF IRRITABLE PT RESTRAINED, BMV HOB VENT PLUGGED INTO RED OUTLET
[2019-06-04] MEDS ORDERED: LORazepam 2 MG/ML VIAL ONE (08:28)
[2019-06-04] MEDS ORDERED: LORazepam 2 MG/ML VIAL IVP SCH (08:28)
[2019-06-04] MEDS ORDERED: MORPHINE SULFATE 2 MG/ML SYR IVP SCH (08:33)
--- NOTE | 2019-06-04 08:39 | NUR ---
INSERTED OGT, PATIENT TOLERATE WELL. NO RESIDUAL NOTED, AUSCULTATED FOR PLACEMENT. SLIME PLANT OPERATOR HELPER AT BEDSIDE, FOR CHEST XRAY.
[2019-06-04] MEDS: PANTOPRAZOLE 40 MG INJ VIAL IVP SCH (08:48)
[2019-06-04] MEDS: METOPROLOL 25 MG TAB PO SCH ×2 (09:00→20:52)
[2019-06-04] MEDS: LISINOPRIL 5 MG TAB PO SCH (09:00)
[2019-06-04] MEDS: metFORMIN 850 MG TAB PO SCH (09:00)
--- NOTE | 2019-06-04 09:10 | NUR ---
ETT WITHDRAWN TO 23 CM CXR ORDERED
--- NOTE | 2019-06-04 09:38 | NUR ---
DECREASED FI02 TO 60% PER ABG RESULT
[2019-06-04] MEDS: PROPOFOL 1000 MG/100 ML PREMIX 100 ML IV PRN (09:44)
[2019-06-04] MEDS: ATORVASTATIN 20 MG TAB PO SCH (09:45)
[2019-06-04] MEDS: DOCUSATE SODIUM 100 MG GELCAP PO SCH (09:45)
[2019-06-04] MEDS: ASPIRIN 81 MG TAB.CHEW PO SCH (09:45)
--- NOTE | 2019-06-04 09:48 | NUR ---
CALLED DR. ROJAS TO REPORT ABG RESULT AND FI02 DECREASED TO 60%.
--- NOTE | 2019-06-04 09:48 | NUR ---
STARTED PATIENT ON PROPOFOL DRIP, PATIENT'S DRY WEIGHT IS 69KG. STARTED PATIENT AT 5MCG/KG/MIN FOR RASS OF -3
[2019-06-04] MEDS: ACETAMINOPHEN 325 MG TAB PO PRN ×2 (10:13→20:59)
[2019-06-04] MEDS: AZITHROMYCIN 250 MG in DEXTROSE 5% 250 ML IV SCH (10:14)
[2019-06-04] MEDS: BLOOD GLUCOSE MONITORING 1 DEV DEV FS SCH ×3 (11:57→20:52)
[2019-06-04] MEDS: INSULIN LISPRO SLIDING SCALE 100 UNITS/ML VIAL SUBQ PRN ×3 (11:58→20:54)
[2019-06-04] MEDS ORDERED: NACL 0.9% 1,000 ML IV SCH (12:53)
--- NOTE | 2019-06-04 14:27 | NUR ---
DR. HUITRON IS HERE TO SEE AND EXAMINE PATIENT. DR. ROJAS AND RT ARE AT BEDSIDE FOR BRONCHOSCOPY
[2019-06-04] MEDS ORDERED: MIDAZOLAM 2 MG/2 ML VIAL ONE (14:34)
[2019-06-04] MEDS ORDERED: MIDAZOLAM 2 MG/2 ML VIAL IV SCH (14:55)
--- NOTE | 2019-06-04 15:26 | NUR ---
VENT SETTINGS CHANGES PER DR. ROJAS RR 18, VT 350ML RECEIVING ABOUT 7.9 ml/kg, PEEP 7, FI02 40%
--- NOTE | 2019-06-04 15:31 | NUR ---
SARAH, PICC LINE RN, IS HERE TO INSERT PICC LINE. US AT BEDSIDE, TIME OUT COMPLETED.
--- NOTE | 2019-06-04 15:40 | NUR ---
PER PICC RN, LINE IS OK TO USE.
[2019-06-04] MEDS ORDERED: NOREPINEPHRINE 8 MG in DEXTROSE 5% 250 ML IV PRN (16:20)
--- NOTE | 2019-06-04 16:28 | NUR ---
STARTED PATIENT ON TUBE FEEDING TO OGT.
--- NOTE | 2019-06-04 17:03 | NUR ---
STARTED PATIENT ON LEVOPHED DRIP AT 5MCG/MIN SINCE HE IS HYPOTENSIVE.
--- NOTE | 2019-06-04 19:05 | NUR ---
PATIENT FAMILY AT BEDSIDE. RT PRESENT AT BEDSIDE. PATIENT LYING IN BED. ETT TO VENT 24 TO LIP. PERRL BOTH EYES AND BRISK. OGT TO TUBE FEEDING GLUCERNA 1.2 20 ML WITH A WATER FLUSH OF 200 Q4H. OGT PROPER PLACEMENT BY AUSCULTATION AND NO RESIDUAL NOTED. DAY SHIFT STATES PROPER PLACEMENT BY XRAY. PATIENT CLEAR LUNG SOUNDS BILATERALLY. RESPIRATIONS SHALLOW AND SYMMETRICAL. HR REGULAR AND TACHY. BOWEL SOUNDS ACTIVE IN ALL 4 QUAD. MOON CATHETER PRESENT WITH LIGHT KEON URINE PRESENT WITH SEDIMENT. NON SKID SOCKS PRESENT. 121/67-30-100%-93-100.1. BED IN LOWEST POSITION, SIDE RAILS UP. SAFETY MEASURES IN PLACE. RASS -3. DRY WEIGHT 69. WILL CONTINUE TO MONITOR PATIENT. SKIN INTACT. FLACC 0. PICC LINE RIGHT UPPER ARM RUNNING PROPOFOL 5MCG. LEVOPHED RUNNING 5 MCG. RIGHT FA PERIPHERAL LINE SALINE LOCK FOR ANTIBIOTICS. BOTH SITES ASYMPT. OF INFECTION. NO REDNESS. NO SWELLING. PATENT.
--- NOTE | 2019-06-04 20:12 | NUR ---
CALLED RESIDENT CHANGE COLACE TO A LIQUID FOR OGT ACCESS.
--- NOTE | 2019-06-04 20:25 | NUR ---
ADMINISTERED MEDICATION DIRECTED BY MD. VAP ORAL CARE PROVIDED. REPOSITIONED PATIENT. PATIENT TOLERATED WELL. WILL CONTINUE TO MONITOR. RASS -3
[2019-06-04] MEDS: DOCUSATE 100 MG/10 ML UDC GT SCH (20:52)
[2019-06-04] MEDS: MORPHINE SULFATE 2 MG/ML SYR IVP PRN (20:54)
--- NOTE | 2019-06-04 21:05 | NUR ---
CHANGED LEVOPHED DRIP TO 5.62 ML/HR
--- NOTE | 2019-06-04 23:34 | NUR ---
VAP ORAL CARE PROVIDED. REPOSITIONED PATIENT AT THIS TIME. PATIENT TOLERATED WELL. WILL CONTINUE TO MONITOR.
[2019-06-05] VITALS (105 sets, daily range): BP systolic 86–122; BP diastolic 42–82
--- NOTE | 2019-06-05 | NUR ---
TEMPORAL ARTERY SCAN 98.5
--- NOTE | 2019-06-05 | NUR ---
VAP ORAL CARE PROVIDED PATIENT DOING WELL NO SOB OR DISTRESS NOTED. WILL CONTINUE TO MONITOR. Addendum: 06/06/19 at 0810 by Elba Cristina RN 06/06/2019 0000
--- NOTE | 2019-06-05 02:47 | NUR ---
REPOSITIONED PATIENT. PATIENT TOLERATED WELL. FLACC 0. WILL CONTINUE TO MONITOR
--- NOTE | 2019-06-05 02:58 | NUR ---
AXILLARY TEMPERATURE LEFT SIDE 98.7.
[2019-06-05] MEDS: PIPERACILLIN/TAZOBACTAM 3.375 GM in DEXTROSE 5% 50 ML IV SCH ×3 (05:05→20:52)
[2019-06-05] MEDS: PROPOFOL 1000 MG/100 ML PREMIX 100 ML IV PRN ×2 (05:07→17:15)
--- NOTE | 2019-06-05 05:55 | NUR ---
SPUTUM DONE AND TURNED IN TO THE LAB. ABG DONE IN THE AM. NO VENT CHANGES MADE PATIENT STABLE NO RESP DISTRESS NOTICED
--- NOTE | 2019-06-05 06:30 | NUR ---
UPDATE TO DR ROJAS AT BEDSIDE
[2019-06-05] MEDS: ALBUTEROL SULFATE/IPRATROPIU 3 ML SOL IH SCH ×3 (06:31→19:28)
--- NOTE | 2019-06-05 06:31 | NUR ---
REC'D PT ON CARESCAPE VENT SETTINGS AC 18 VT 350 PEEP 7 FIO2 40% ALARMS ON AND AUDIBLE AND AMBU BAG AT SIDE OF VENT AND VENT IS PLUGGED INTO RED OUTLET, I\L TX GIVEN WITH DUONEB 3ML WITH NO ADVERSE REACTION POST TX, B\S ARE COARSE BILATERALLY, SXN PT SMALL AMT OF WHITE SECRETIONS, PT IS ORALLY INTUBATED WITH 7.5 ET TUBE AT 23CM PT IS SEDATED AND HAS BOTH WRISTS WITH MITTENS, PT IS RESTING
[2019-06-05 06:33] LABS: ANION GAP 12.2 (8-16); CARBON DIOXIDE 26.6 mmol/L (21-32); CREATININE 2.6 mg/dL (0.7-1.3); POTASSIUM 3.8 mmol/L (3.5-5.1)
--- NOTE | 2019-06-05 06:45 | NUR ---
UPDATE TO DR. RAMOS AT BEDSIDE. CLEANING PATIENT SMEAR OF BROWN SOFT BM AT THIS TIME. MORNING CARE PERFOMED. CATHETER CARE AND VAP ORAL CARE PERFORMED. PATIENT TOLERATED WELL. PATIENT FEEDING WA TURNED UP TO 30. TOLERATING WELL. WILL CONTINUE TO MONITOR.
[2019-06-05 06:47] LABS: MAGNESIUM 2.6 mg/dL (1.8-2.4); PHOSPHORUS 4.6 mg/dL (2.5-4.9)
--- NOTE | 2019-06-05 07:01 | NUR ---
RECEIVED BEDSIDE REPORT FROM MATEUSZ MOVIE STAR RN, FOR CONTINUITY OF CARE. PATIENT IS SEDATED ON PROPOFOL AT 15MCG/KG/MIN, DRY WEIGHT OF 69 KG. PATIENT'S SKIN IS INTACT, WARM AFEBRILE. PATIENT HAS PICC LINE TO SANDEEP, ASYMPTOMATIC AND PATENT, LEVOPHED AT 3MCG. PATIENT HAS ETT TO VENT, SETTINGS AC MODE, FIO2 40%, TV 350, R18, PEEP 7. LUNG SOUNDS ARE CLEAR, BREATHING IS EVEN AND UNLABORED. SR ON MONITOR, BP STABLE, FLACC 0. PATIENT HAS OGT TO FEEDING, AUSCULTATED FOR PLACEMENT, NO RESIDUAL NOTED. MOON CATHETER IN PLACE TO LIGHT KEON URINE. HOB IS 30 DEGREES, SAFETY PRECAUTIONS AND ALARMS ASSESSED AND ENFORCED. NO SIGNS OF DISTRESS NOTED. WILL CONTINUE TO MONITOR.
[2019-06-05 07:16] LABS: HEMATOCRIT 27.8 % (36-52); HEMOGLOBIN 9.1 g/dL (12.0-18.0); MEAN CORPUSCULAR HEMOGLOBIN 31 pg (27-31); MEAN CORPUSCULAR HGB CONC 33 g/dL (33-37); MEAN CORPUSCULAR VOLUME 93.5 fL (80-94); PLATELET COUNT (AUTO) 259 K/uL (140-450); RED BLOOD CELL COUNT(AUTO) 2.97 MIL/uL (4.20-6.10); RED CELL DISTRIBUTION WIDTH 13.6 % (11.6-13.7); WHITE BLOOD COUNT (AUTO) 14.1 K/uL (4.8-10.8)
[2019-06-05] MEDS: BLOOD GLUCOSE MONITORING 1 DEV DEV FS SCH ×4 (07:51→20:52)
--- NOTE | 2019-06-05 08:02 | NUR ---
DR. BURR AND RESIDENT PHYSICIANS AT BEDSIDE, UPDATED ON PATIENT'S CONDITION. WILL FOLLOW UP ON ANY ORDERS.
[2019-06-05] MEDS ORDERED: hePARIN / DEXT 5% PREMIX 250 ML IV SCH (08:20)
[2019-06-05] MEDS ORDERED: HEPARIN PER PHARMACY MC PRN (08:20)
[2019-06-05] MEDS: DOCUSATE 100 MG/10 ML UDC GT SCH ×2 (08:24→20:51)
[2019-06-05] MEDS: ASPIRIN 81 MG TAB.CHEW PO SCH (08:24)
[2019-06-05] MEDS: PANTOPRAZOLE 40 MG INJ VIAL IVP SCH (08:25)
[2019-06-05] MEDS: ATORVASTATIN 20 MG TAB PO SCH (08:25)
[2019-06-05] MEDS: LISINOPRIL 5 MG TAB PO SCH (08:25)
--- NOTE | 2019-06-05 09:06 | NUR ---
DR. FARAH IS HERE TO SEE PATIENT, UPDATED ON PATIENT'S CONDITION. DR. RAMOS IS HERE AT BEDSIDE.
[2019-06-05 09:23] LABS: LYMPHOCYTES % (MANUAL) 5 % (20-46)
[2019-06-05 09:24] LABS: EOSINOPHILS % (MANUAL) 5 % (0-4); MONOCYTES % (MANUAL) 3 % (5-12)
[2019-06-05] MEDS: hePARIN / DEXT 5% PREMIX 250 ML IV SCH (09:26)
[2019-06-05] MEDS: AZITHROMYCIN 250 MG in DEXTROSE 5% 250 ML IV SCH (10:47)
--- NOTE | 2019-06-05 11:39 | NUR ---
PATIENT'S DAUGHTER IS HERE AT BEDSIDE, UPDATED ON PATIENT'S CONDITION.
--- NOTE | 2019-06-05 15:40 | NUR ---
06/05/19 RD INITIAL ASSESSMENT COMPLETED PLEASE REFER TO NUTRITION ASSESSMENT UNDER CARE ACTIVITY FOR ESTIMATED NUTRITIONAL NEEDS. RECOMMEND GLUCERNA 1.2 @ 55ML/HR RECOMMEND FWF OF 100ML Q6H 3. RD TO FOLLOW-UP 2-3 DAYS, HIGH RISK DANIEL ROBERTS, RD
--- NOTE | 2019-06-05 16:46 | NUR ---
DR. ROBINS IS HERE TO SEE AND EXAMINE PATIENT, UPDATED ON PATIENT'S CONDITION. WILL FOLLOW UP ON ANY ORDERS
[2019-06-05] MEDS: ACETAMINOPHEN 325 MG TAB PO PRN (17:07)
--- NOTE | 2019-06-05 17:18 | NUR ---
PATIENT HAD A TEMP OF 100.4, ADMINISTERED PRN TYLENOL PO, PATIENT TOLERATED WELL.
--- NOTE | 2019-06-05 19:08 | NUR ---
ENDORSED CONTINUITY OF CARE TO MATEUSZ CORN HUSKER MACHINE OPERATOR RN.
--- NOTE | 2019-06-05 19:10 | NUR ---
CHANGE OF SHIFT REPORT GIVEN BY DAY NURSE DIOGENES AT BEDSIDE. PATIENT LYING IN BED PEACEFUL. CALM. NO SOB OR DISTRESS NOTED. PATIENT SEDATED. DRY WEIGHT 69KG USED AND RASS -3. ETT TO VENT 22 AT LIP WITH 7.5 ET TUBE. NO BREAKDOWN NOTED ON MOUTH OR LIPS. PATIENT BED IN LOWEST CONDITION SIDE RAILS UP. SAFETY MEASURES IN PLACE. AMBU BAG AT BEDSIDE. PATIENT HAS OGT TUBE INSERTED. PATENT PLACEMENT BY AUSCULTATION WITH NO RESIDUAL NOTED. RUNNING GLUCERNA 1.2 AT 55 WITH WATER FLUSH OF 100 Q4H. PATIENT HAS PICC LINE ACCESS DOUBLE LUMEN RIGHT UPPER ARM RUNNING HEPARIN DRIP AT 650 UNITS OR 8.28ML/HR AND PROPOFOL 20 MCG OR 8.28 ML/HR. PERIPHERAL LINE RUNNING ANTIBIOTICS WHEN ORDERED. FLUSHED AND SALINE LOCK WHEN NOT IN USE. DAY NURSE NEPHEUSEBIA ORTA CAME (SOFI). RT PRESENT GIVING BREATHING TREATMENT. LUNG SOUNDS CLEAR BILATERALLY. RESPIRATIONS SYMMETRICAL AND NORMAL. HR REGULAR AND NORMAL. BOWEL SOUNDS ACTIVE IN ALL 4 QUADRANTS. PATIENT HAD BM SMEAR OF BROWN SOFT STOOL. BED CHANGED AND PATIENT REPOSITIONED AT THIS TIME. ORAL CARE PERFORMED. NO SKIN BREAK DOWN NOTED. MOON CATHETER PRESENT AND YELLOW URINE PRESENT WITH SEDIMENT NOTED. WILL CONTINUE TO MONITOR. FAMILY PRESENT AT BEDSIDE.
--- NOTE | 2019-06-05 19:27 | NUR ---
RECEIVED PATIENT ON THE VENTILATOR SETTINGS: AC/VC 350 RATE 18 PEEP 7 FIO2 35%. PATIENT IS INTUBATED WITH A SIZE 7.5 ET TUBE THAT IS SECURE WITH AN ANCHORFAST AT 23 CM AT THE LIP AT ORAL RIGHT. OBSERVED NO LIP OR SKIN BREAKDOWN. PATIENT IS QUIET, SLEEPING AND APPEARS COMFORTABLE WITH NO DISTRESS. B/S: COARSE BILATERALLY. SUCTIONED PATIENT AND RECEIVED SCANT, THIN, WHITE SECRETIONS. PATIENT HAS AN EFFECTIVE COUGH. TREATMENT GIVEN INLINE WITH NO ADVERSE EFFECTS. VENT AND ALARM SETTINGS VERIFIED. AMBU BAG AT BEDSIDE.
--- NOTE | 2019-06-05 20:47 | NUR ---
PHONE CALL TO MD TIDWELL FOR NEXT PTT LAB DRAW. MD MASON WILL PUT IN ORDERS 6 HOURS FROM LAST PTT LAB DRAW. WILL FOLLOW UP.
[2019-06-05] MEDS: INSULIN LISPRO SLIDING SCALE 100 UNITS/ML VIAL SUBQ PRN (21:03)
--- NOTE | 2019-06-05 21:20 | NUR ---
RT AT BEDSIDE. PATIENT CALM. NO SOB OR DISTRESS NOTED. LYING IN BED. VSS. WILL CONTINUE TO MONITOR.
--- NOTE | 2019-06-05 21:29 | NUR ---
FOLLOWED UP WITH LAB. STATES NO ORDERS NOTED. WILL CALL MD TIDWELL.
--- NOTE | 2019-06-05 21:31 | NUR ---
CHARGE NURSE CALLED MD TIDWELL TO NOTIFY HER LAST PTT WAS 1633 AND ASKED FOR ORDERS FOR Q6H WHILE ON HEPARIN DRIP. WILL FOLLOW UP.
--- NOTE | 2019-06-05 21:56 | NUR ---
MORE FAMILY PRESENT AT BEDSIDE. PATIENT LYING IN BED PEACEFULLY RASS -3. NO SOB OR DISTRESS NOTED. RUNNING FEEDING ORDERED. RUNNING HEPARIN ORDERED AND PROPOFOL ORDERED. URINE PRESENT IN CATHETER BAG. WILL CONTINUE TO MONITOR. SIDE RAILS UP. BED IN LOWEST POSITION. SAFETY MEASURES IN PLACE.
--- NOTE | 2019-06-05 23:20 | NUR ---
ROUTINE VENT CHECK. MOVED ET TUBE FROM ORAL RIGHT TO ORAL CENTER WITH NO INCIDENT.
[2019-06-06] VITALS (106 sets, daily range): BP systolic 95–124; BP diastolic 56–79
--- NOTE | 2019-06-06 02:14 | NUR ---
DR TIDWELL PRESENT TO MONITOR PATIENT AT BEDSIDE. WILL CONTINUE TO MONITOR.
--- NOTE | 2019-06-06 03:31 | NUR ---
ROUTINE VENT CHECK. CHANGED HME. B/S: CLEAR BILATERALLY. NO CHANGES TO VENT SETTINGS.
[2019-06-06] MEDS: PROPOFOL 1000 MG/100 ML PREMIX 100 ML IV PRN ×3 (03:33→23:09)
--- NOTE | 2019-06-06 04:00 | NUR ---
VAP ORAL CARE PERFORMED. REPOSITIONED. PATIENT TOLERATED WELL.
[2019-06-06] MEDS: PIPERACILLIN/TAZOBACTAM 3.375 GM in DEXTROSE 5% 50 ML IV SCH ×3 (04:46→20:24)
[2019-06-06 06:29] LABS: BASOPHILS # (AUTO) 0.1 K/uL (0.00-0.22); BASOPHILS % (AUTO) 0.6 % (0.0-2.0); EOSINOPHILS # (AUTO) 0.7 K/uL (0-0.4); EOSINOPHILS % (AUTO) 7.7 % (0.0-4.0); HEMATOCRIT 26.8 % (36-52); HEMOGLOBIN 8.9 g/dL (12.0-18.0); LYMPHOCYTES # (AUTO) 0.4 K/uL (2.0-11.5); LYMPHOCYTES % (AUTO) 4.6 % (20.5-51.1); MEAN CORPUSCULAR HEMOGLOBIN 31 pg (27-31); MEAN CORPUSCULAR HGB CONC 33 g/dL (33-37); MONOCYTES # (AUTO) 0.4 K/uL (0.8-1.0); MONOCYTES % (AUTO) 3.7 % (1.7-9.3); NEUTROPHILS % (AUTO) 83.4 % (42.2-75.2); PLATELET COUNT (AUTO) 214 K/uL (140-450); RED BLOOD CELL COUNT(AUTO) 2.88 MIL/uL (4.20-6.10); RED CELL DISTRIBUTION WIDTH 13.6 % (11.6-13.7); WHITE BLOOD COUNT (AUTO) 9.6 K/uL (4.8-10.8)
[2019-06-06 06:39] LABS: ANION GAP 12.5 (8-16); CARBON DIOXIDE 26.5 mmol/L (21-32); CREATININE 2.3 mg/dL (0.7-1.3)
--- NOTE | 2019-06-06 06:45 | NUR ---
CRITICAL VALUE KID FROM LAB BUN 68 NOTIFIED SADIQI AT 0645 PENDING APTT UPDATED SADIQI ON PATIENT STATUS
[2019-06-06 06:46] LABS: MAGNESIUM 2.7 mg/dL (1.8-2.4); PHOSPHORUS 4.4 mg/dL (2.5-4.9)
--- NOTE | 2019-06-06 07:20 | NUR ---
RECEIVED CHANGE OF SHIFT REPORT FROM PM NURSE AT PATIENT'S BEDSIDE. PATIENT'S DRY WEIGHT IS 68 KG. PATIENT IS SEDATED (RASS -3) AND VENTILATED. ETT 7.5 (22 AT LIP) TO VENT WITH SETTINGS ACVC: AC 20, FI02: 50%, VT 550, FLOW 50, AND PEEP 5. FLACC 0. LUNG SOUNDS AUSCULTATED AND ARE CLEAR IN THE UPPER LOBES BUT FINE CRACKLES IN BILATER LOWER LOBES. S1S2 AUSCULTATED WITH NSR ON PLASTER TENDER. BILATERAL UPPER AND LOWER EXTREMITIES 2+ IN STRENGTH AND NORMAL ROM. SKIN IS WARM, DRY AND INTACT WITH NO EDEMA. ABDOMEN IS SOFT, ROUND AND NONTENDER. PATIENT HAS MOON CATHETER IN PLACE WITH CLOUDY DARK YELLOW URINE. OGT IN PLACE, WITH 50ML RESIDUALS, POSITIVE PLACEMENT COMFIRMED, AND PATENT. GLYCERNA FEEDING RUNNING AT 55 ML/H WITH 100ML Q6H FLUSH. NO BOWEL MOVEMENT AT THIS TIME, BUT ACTIVE BOWEL SOUNDS AUSCULTATED IN ALL QUADRANTS. RIGHT AC 20 GAUGE PATENT PERIPHERAL IV - DRESSING/SITE DRY AND INTACT AND SALINE LOCKED. RIGHT FOREARM 20 GAUGE PATENT PERIPHERAL IV - DRESSING/SITE DRY AND INTACT AND INFUSING NS TKO AT 5ML/H. RIGHT UPPER ARM PATENT PICC LINE DOUBLE LUMEN - DRESSING/SITE DRY AND INTACT AND HEPARIN INFUSING AT 800 UNITS/H AND PROPOFOL AT 20 MCG/KG/H. SIDERAILS UP, BED IN LOW POSITION. WILL CONTINUE TO MONITOR.
[2019-06-06] MEDS: ALBUTEROL SULFATE/IPRATROPIU 3 ML SOL IH SCH ×3 (07:24→18:51)
--- NOTE | 2019-06-06 07:25 | NUR ---
RECEIVED PT ON [place] ON DOCUMENTED SETTINGS, ALARMS ARE ON AND AUDIBLE, PTS ETT SIZE 7.5 IS SECURE [address] FAST IN PLACE, BS CLEAR HHN GIVENBMV HOB, I\L WITH 3 MG DUONEB, VENT PLUGGED INTO RED OUTLET
[2019-06-06] MEDS ORDERED: PROBIOTIC SCREEN 1 EA MISC MC PRN (07:35)
[2019-06-06] MEDS: BLOOD GLUCOSE MONITORING 1 DEV DEV FS SCH ×4 (07:38→20:31)
[2019-06-06] MEDS: INSULIN LISPRO SLIDING SCALE 100 UNITS/ML VIAL SUBQ PRN ×3 (07:44→16:42)
--- NOTE | 2019-06-06 07:50 | NUR ---
FOR PTT OF 45.5 , PATIENT HEPARIN DRIP CHANGED PER PROTOCOL. NEW RATE IS 950 UNITS OR 9.5 ML/HR AND BOLUS OF 2000 UNITS VIA IVP GIVEN BY LAZ. WILL CONTINUE TO MONITOR AT THIS TIME
--- NOTE | 2019-06-06 08:12 | NUR ---
DR BURR AND RESIDENTS AT BEDSIDE. STATUS UPDATE WILL CONTINUE TO MONITOR
[2019-06-06] MEDS: NACL 0.9% 1,000 ML IV SCH (08:45)
[2019-06-06] MEDS: ATORVASTATIN 20 MG TAB PO SCH (09:17)
[2019-06-06] MEDS: PANTOPRAZOLE 40 MG INJ VIAL IVP SCH (09:17)
[2019-06-06] MEDS: DOCUSATE 100 MG/10 ML UDC GT SCH ×2 (09:17→20:36)
[2019-06-06] MEDS: ASPIRIN 81 MG TAB.CHEW PO SCH (09:17)
--- NOTE | 2019-06-06 09:22 | NUR ---
DECREASE PEEP TO 5
[2019-06-06] MEDS: AZITHROMYCIN 250 MG in DEXTROSE 5% 250 ML IV SCH (11:34)
--- NOTE | 2019-06-06 12:25 | NUR ---
PT SEEN AND EXAMINED BY DR. ROBINS. RECEIVED ORDER TO TURN OFF SEDATION AND START CPAP WEANING TRIALS. RT TIPTON MADE AWARE.
--- NOTE | 2019-06-06 13:00 | NUR ---
PT FAILED SBT HIGH RR 42 Addendum: 06/06/19 at 1304 by Feli Zarate RT DR SHIMON ROBERSON
--- NOTE | 2019-06-06 13:04 | NUR ---
DR. ROBINS MADE AWARE THAT SBT FAILED. RR 40. PROPOFOL RESUMED AT 20 MCG/KG/MIN. FAMILY AT BEDSIDE. PT IS NOT IN ANY DISTRESS AT THIS TIME. SAFETY PRECAUTIONS IN PLACE. WILL CONTINUE TO MONITOR.
--- NOTE | 2019-06-06 14:00 | NUR ---
PT HAD LARGE AMOUNT OF BROWN THICK LIQUID BOWEL MOVEMENT. CLEANED AND REPOSITIONED FOR COMFORT AND OFF LOADING PRESSURE AREAS. TOLERATED WELL.
[2019-06-06] MEDS: hePARIN / DEXT 5% PREMIX 250 ML IV SCH (15:50)
--- NOTE | 2019-06-06 16:05 | NUR ---
VAP ORAL CARE GIVEN. TURNED AND REPOSITIONED FOR COMFORT AND PRESSURE OFF LOADING. VSS. HOB 30 DEGREES, BED KEPT IN LOWEST POSITION LOCKED. CALL LIGHT WITHIN REACH. WILL CONTINUE TO MONITOR.
--- NOTE | 2019-06-06 18:01 | NUR ---
DIVISION HEAD AT BESIDE FOR PTT BLOOD DRAW. VSS. NO S/SX OF DISTRESS NOTED.
--- NOTE | 2019-06-06 19:11 | NUR ---
REPORT GIVEN TO YARN DYER RN FOR CONTINUITY OF CARE. NO SIGNS OF DISTRESS NOTED AT THIS TIME.
--- NOTE | 2019-06-06 19:15 | NUR ---
RECEIVED PT FROM AM NURSE. PT AT BED, EYES CLOSED, BREATHING REGULARLY, ETT TO VENT, SIZE 7.5, AC VC, 35% FIO2, TV 350 ML, RR 18, PEEP 5, PT SEDATED, RASS -3, PERRL 3MM, BRISK, HEART RATE REGULAR S1S2 PRESENT, CAP REFILL <3S, PULSES 2+ BILATERAL UPPER AND LOWER EXTREMITIES, ABDOMEN, SOFT, ROUND, NONTENDER, NONDISTENDED, PT HAS OG TUBE IN PLACE, RUNNING, GLUCERNA 1.2 AT 55 ML/HR, WITH WATER FLUSH 100 ML/HR AT Q6H. BLADDER, SOFT, ROUND, NONDISTENDED, NONTENDER, FC IN PLACE, PT HAS YELLOW URINE, WITH SEDIMENTATION, SKIN INTACT, WARM, DRY, APPROPRIATE TO ETHNICITY, PT HAS RIGHT UPPER ARM PICC LINE, RUNNING NS AT 10 ML/HR, PROPOFOL AT 25 MCG/KG/MIN, AND HEPARIN 1100 UNITS/HR. HOB 30 DEGREES, SIDE RAILS UP X2, BED AT LOWEST POSITION. Addendum: 06/07/19 at 0149 by George Vargas RN DRY WEIGHT 69 KG
--- NOTE | 2019-06-06 21:05 | NUR ---
ADMINISTERED MEDICATION SUCTIONED PT WITH WHITE MODERATE AMOUNT OF SPUTUM. WILL CONTINUE TO MONITOR.
--- NOTE | 2019-06-06 23:20 | NUR ---
PT AT BED EYES CLOSED. RASS -3, BREATHING REGULARLY ETT TO VENT, WILL CONTINUE TO MONITOR.
[2019-06-06] MEDS: ALBUTEROL SULFATE/IPRATROPIU 3 ML SOL IH PRN (23:30)
[2019-06-07] VITALS (107 sets, daily range): BP systolic 97–137; BP diastolic 57–85
--- NOTE | 2019-06-07 00:05 | NUR ---
RECEIVED LAB REPORT FOR APTT RESULT OF 67.9, NO CHANGES ON HEPARIN RATE OF 1100 UNITS/KG/MIN.
--- NOTE | 2019-06-07 02:20 | NUR ---
PT AT BED EYES CLOSED. RASS -3, BREATHING REGULARLY ETT TO VENT, WILL CONTINUE TO MONITOR.
--- NOTE | 2019-06-07 04:20 | NUR ---
PT AT BED EYES CLOSED. RASS -3, BREATHING REGULARLY ETT TO VENT, WILL CONTINUE TO MONITOR.
[2019-06-07] MEDS: PIPERACILLIN/TAZOBACTAM 3.375 GM in DEXTROSE 5% 50 ML IV SCH (04:56)
--- NOTE | 2019-06-07 05:35 | NUR ---
PT AT BED EYES CLOSED. RASS -3, BREATHING REGULARLY ETT TO VENT, WILL CONTINUE TO MONITOR.
[2019-06-07 06:36] LABS: ANION GAP 10.1 (8-16); CARBON DIOXIDE 29.1 mmol/L (21-32); CREATININE 2.1 mg/dL (0.7-1.3); POTASSIUM 4.2 mmol/L (3.5-5.1)
[2019-06-07 06:48] LABS: BASOPHILS % (AUTO) 0.4 % (0.0-2.0); EOSINOPHILS # (AUTO) 0.4 K/uL (0-0.4); HEMOGLOBIN 9.2 g/dL (12.0-18.0); LYMPHOCYTES # (AUTO) 0.4 K/uL (2.0-11.5); LYMPHOCYTES % (AUTO) 4.2 % (20.5-51.1); MEAN CORPUSCULAR HEMOGLOBIN 31 pg (27-31); MEAN CORPUSCULAR HGB CONC 33 g/dL (33-37); MONOCYTES # (AUTO) 0.5 K/uL (0.8-1.0); MONOCYTES % (AUTO) 5.7 % (1.7-9.3); NEUTROPHILS # (AUTO) 7.9 K/uL (1.8-7.7); NEUTROPHILS % (AUTO) 85.7 % (42.2-75.2); PLATELET COUNT (AUTO) 211 K/uL (140-450); RED BLOOD CELL COUNT(AUTO) 3.01 MIL/uL (4.20-6.10); RED CELL DISTRIBUTION WIDTH 13.4 % (11.6-13.7); WHITE BLOOD COUNT (AUTO) 9.2 K/uL (4.8-10.8)
[2019-06-07] MEDS: ALBUTEROL SULFATE/IPRATROPIU 3 ML SOL IH SCH ×3 (07:04→18:42)
[2019-06-07] MEDS: PROPOFOL 1000 MG/100 ML PREMIX 100 ML IV PRN ×2 (07:15→17:41)
--- NOTE | 2019-06-07 07:15 | NUR ---
CHANGE OF SHIFT REPORT GIVEN TO AM NURSE. PT AT STABLE CONDITION AT THIS TIME.
[2019-06-07] MEDS: BLOOD GLUCOSE MONITORING 1 DEV DEV FS SCH ×4 (07:16→20:30)
[2019-06-07] MEDS: INSULIN LISPRO SLIDING SCALE 100 UNITS/ML VIAL SUBQ PRN ×4 (07:17→20:32)
--- NOTE | 2019-06-07 08:20 | NUR ---
RECEIVED PT REPORT FROM REHAB TRAINER RN [place]. PT IN BED, OPENS EYES TO LIGHT SHAKING, ETT TO VENT, SIZE 7.5, 23CM AT TEETH, AC/VC, FIO2 35%, TV 350 ML, RR 18, PEEP 5, SEDATED, RASS -3, PERRL. BREATHING FAST, RR 34, LUNG SOUNDS CLEAR, DIMINISHED. HEART RATE REGULAR S1S2 PRESENT, CAP REFILL <3S, PULSES 2+ BILATERAL UPPER AND LOWER EXTREMITIES. ABDOMEN, SOFT, ROUND, NONTENDER. OGT RUNNING, GLUCERNA 1.2 AT 55 ML/HR, WITH WATER FLUSH 100 ML/HR Q6H. MOON CATH IN PLACE DRAINING CLOUDY YELLOW URINE WITH SEDIMENTS. SKIN WARM AND DRY. RIGHT UPPER ARM PICC LINE, RUNNING NS AT 10 ML/HR, PROPOFOL AT 25 MCG/KG/MIN, AND HEPARIN 1100 UNITS/HR. DRY WEIGHT 69KG. HOB 30 DEGREES, SIDE RAILS UP X2, BED AT LOWEST POSITION.
--- NOTE | 2019-06-07 08:40 | NUR ---
DIARRHEA X1, PT WAS CLEANED, SKIN INTACT, CHANGED CHUX AND LINENS.
--- NOTE | 2019-06-07 08:53 | NUR ---
SCREEN FOR LOW TRACEY SCALE AT RISK, CONTINUE TO FOLLOW PRESSURE ULCER PREVENTION INTERVENTIONS. -TURN AND REPOSITION PATIENT Q 2H -ASSESS AND MONITOR SKIN CONDITION DURING POSITION CHANGE -OFFLOAD BILATERAL HEELS BY PLACING PILLOWS UNDER CALVES AT ALL TIMES, UNLESS OTHERWISE CONTRAINDICATED -PRESSURE REDISTRIBUTION BY PLACING PILLOWS AND OFFLOADING SACRALCOCCYX -KEEP SKIN CLEAN AND DRY AT ALL TIMES.
[2019-06-07] MEDS: DOCUSATE 100 MG/10 ML UDC GT SCH ×3 (08:54→20:32)
[2019-06-07] MEDS: PANTOPRAZOLE 40 MG INJ VIAL IVP SCH (08:54)
[2019-06-07] MEDS: ASPIRIN 81 MG TAB.CHEW PO SCH (08:54)
[2019-06-07] MEDS: ATORVASTATIN 20 MG TAB PO SCH (08:54)
[2019-06-07] MEDS: NACL 0.9% 1,000 ML IV SCH (09:15)
--- NOTE | 2019-06-07 09:35 | NUR ---
PROPOFOL HELD FOR WEANING TRIAL.
--- NOTE | 2019-06-07 09:50 | NUR ---
PT ON CPAP WITH SETTINGS CHARTED WILL CONTINUE TO MONITOR PT RN AWARE
--- NOTE | 2019-06-07 11:00 | NUR ---
DIARRHEA X1, MODERATE LIQUID BROWN STOOL, PT WAS CLEANED, SKIN INTACT. APPLIED RECTAL FECAL BAG.
--- NOTE | 2019-06-07 11:10 | NUR ---
MADE DR ORR AWARE OF THE DIARRHEA.
[2019-06-07] MEDS: AZITHROMYCIN 250 MG in DEXTROSE 5% 250 ML IV SCH (11:30)
--- NOTE | 2019-06-07 11:35 | NUR ---
PT UNABLE TO JODY CPAP HIGH RR PLACED BACK ON AC RN AWARE DR ORR AWARE
--- NOTE | 2019-06-07 11:45 | NUR ---
PT ONLY TOLERATED ABOUT 1HR ON CPAP, WENT BACK TO AC/VC MODE DUE TO HIGH RR. RESUMED PROPOFOL.
[2019-06-07] MEDS ORDERED: PIPERACILLIN/TAZOBACTAM 2.25 GM in DEXTROSE 5% 50 ML IV SCH (13:00)
--- NOTE | 2019-06-07 14:54 | NUR ---
06/07/19 RD FOLLOW UP COMPLETED PLEASE REFER TO NUTRITION ASSESSMENT UNDER CARE ACTIVITY FOR ESTIMATED NUTRITIONAL NEEDS. 1. CONTINUE GLUCERNA 1.2 @ 55ML/HR -THIS WILL PROVIDE 1584 KCAL AND 79 G PROTEIN 2. CONTINUE FWF OF 100ML Q6H 3. RD TO FOLLOW-UP 2-3 DAYS, HIGH RISK DANIEL ROBERTS RD
--- NOTE | 2019-06-07 15:00 | NUR ---
TOLERATED FEEDING WELL. NEW FEEDING FORMULA BOTTLE CHANGED. RUNNING AT 55ML/HR, H2O FLUSH 100ML Q6H.
[2019-06-07] MEDS: hePARIN / DEXT 5% PREMIX 250 ML IV SCH (15:38)
--- NOTE | 2019-06-07 17:11 | NUR ---
CONTINUED TO MONITOR PT ON VENT WITH SETTINGS CHARTED BREATH SOUNDS PRESENT BILAT CLEAR SXN PT WITH MIN AMT OFF WHITE SECS ETT SITE SECURE AMBU BAG AT BEDSIDE VENT PLUGGED INTO RED OUTLET
--- NOTE | 2019-06-07 19:15 | NUR ---
RECEIVED REPORT FROM AKILAH LUNA AM SHIFT, PT ON STT TO VENT WITH VENT SETTING AC RATE 18, TIDAL VOLUME 350 FIO2 30% PEEP 5, TOLERATING WELL, SPO2 92-93%. PT NOTED WITH TACHYPNEA RR 30-32. NO FACIAL GRIMMICING NOTED. CARDIAC MONITORING SHOW SR. BILATERAL LUNGS SOUND CLEAR. OGT IN PLACE WITH PLACEMENT CONFIRM AND 20 CC RESIDUAL NOTED.PICC LINE TO SANDEEP DOUBLE LUMENS INTACT WELL. PT CONTINUE ON SEDATION PROPOFOL AT 25 MCG/HR TO KEEP RASS-3 WITH DRY WT 69 KG. CONTINUE ALSO HEPARIN DRIPS AT 1100 UNITS/HR. NO S/S OF ACTIVE BLEEDING. ABD SOFT NON DISTENDED. SKIN WARM TO TOUCH. T 99.4, COOLING MEASURE GIVEN. F/C IN PLACE WITH YELLOW KEON URINE NOTED. RECTAL TUBE CONNECT TO BSD BAG D/T PT HAVING DIARRHEA PER REPORT.GENTLE CARE GIVEN. KEPT PT CLEAN AND DRY.
[2019-06-07] MEDS ORDERED: FLUCONAZOLE 100 MG/NS PREMIX 50 ML IV SCH (19:30)
--- NOTE | 2019-06-07 19:30 | NUR ---
PT SEDATED ON VENT, TACHYPNIC. INSP FLOW MAXED OUT FOR PTS VT. ETT SECURED, VENT ALARMS AND PARAMETERS VERIFIED. AMBU BAG AND MASK BEDSIDE. VENT PLUGGED INTO RED OUTLET, WHEELS LOCKED. WILL CONTINUE TO MONITOR.
[2019-06-07] MEDS ORDERED: FLUCONAZOLE IV ONE (20:01)
[2019-06-07] MEDS ORDERED: NS IV ONE (20:01)
--- NOTE | 2019-06-07 20:15 | NUR ---
COME AND SEE PT, FAMILY AT BED SIDE. PE MD TO D/C DIFLUCAN AND ZOSYN ORDERS,CHANGE IV ABT TO LEVAQUIN 750 MG X1 TODAY AND 250 MG Q DAILY. ALSO TO START WITH CLEOCIN 600 MG Q 8HRS. START NEW IV ABT PER MD ORDER.FAMILY ALSO UP DATE THE PT CONDITION.
[2019-06-07] MEDS ORDERED: LEVOFLOXACIN 750 MG/D5W PREMIX 150 ML IV ONE (20:30)
--- NOTE | 2019-06-07 20:45 | NUR ---
BLOOD SUGAR 155 AND 2 UNTIS INSULIN GIVEN PERSLIDING SCALE.
[2019-06-07] MEDS ORDERED: CLINDAMYCIN 600 MG/4 ML VIAL ONE (21:08)
--- NOTE | 2019-06-07 21:40 | NUR ---
TALK T FAMILY REGARDING TRIAL OF BIPAP IN AM. PER FAMILY TO REQUEST AT 10:30 AM WHEN FAMILY AT BED SIDE. WILL ENDORESED TO AM NURSE AND RT.
[2019-06-07] MEDS: CLINDAMYCIN 600 MG in DEXTROSE 5% 50 ML IV SCH (21:52)
[2019-06-07] MEDS: MORPHINE SULFATE 2 MG/ML SYR IVP PRN (21:55)
--- NOTE | 2019-06-07 22:25 | NUR ---
PT WAS HAVING RR 30-35, FACIAL GRIMMICING NOTED, MORPHINE GIVEN ORDER PRN.AND PT TOLERATED WEE, PT LOOK CALM AND SLEEPING WELL. RR 28X/MINS
[2019-06-08] VITALS (105 sets, daily range): BP systolic 92–121; BP diastolic 51–75
--- NOTE | 2019-06-08 | NUR ---
PT SLEPT WELL, T 99.5, COOLING MEASURE GIVEN
[2019-06-08] MEDS: PROPOFOL 1000 MG/100 ML PREMIX 100 ML IV PRN ×3 (00:20→18:10)
--- NOTE | 2019-06-08 01:00 | NUR ---
TEMP DOWN TO 98.7
[2019-06-08] MEDS ORDERED: CLINDAMYCIN 600 MG/4 ML VIAL ONE (02:48)
--- NOTE | 2019-06-08 04:00 | NUR ---
T 100.8 COOLING MEASURE GIVEN
--- NOTE | 2019-06-08 04:30 | NUR ---
AM CARE GIVEN,ORAL CARE,F/C CARE AND BED BATH. REPOSITION PT FOR COMFORT.
[2019-06-08] MEDS: CLINDAMYCIN 600 MG in DEXTROSE 5% 50 ML IV SCH ×3 (04:52→20:51)
[2019-06-08] MEDS: NACL 0.9% 1,000 ML IV SCH (04:52)
--- NOTE | 2019-06-08 05:00 | NUR ---
TYLENOL GIVEN ORDER FOR MILD PAIN 3/10 AND INCREASE T 100.8.
[2019-06-08] MEDS: ACETAMINOPHEN 325 MG TAB PO PRN (05:32)
--- NOTE | 2019-06-08 06:00 | NUR ---
TEMP DOWN TO 98.8 CONTINUE TO MONITOR.
[2019-06-08 06:16] LABS: BASOPHILS % (AUTO) 0.4 % (0.0-2.0); EOSINOPHILS # (AUTO) 0.3 K/uL (0-0.4); EOSINOPHILS % (AUTO) 3.6 % (0.0-4.0); HEMATOCRIT 26.6 % (36-52); HEMOGLOBIN 8.8 g/dL (12.0-18.0); LYMPHOCYTES # (AUTO) 0.4 K/uL (2.0-11.5); LYMPHOCYTES % (AUTO) 4.1 % (20.5-51.1); MEAN CORPUSCULAR HEMOGLOBIN 31 pg (27-31); MEAN CORPUSCULAR HGB CONC 33 g/dL (33-37); MEAN CORPUSCULAR VOLUME 94.2 fL (80-94); MONOCYTES # (AUTO) 0.6 K/uL (0.8-1.0); MONOCYTES % (AUTO) 6.4 % (1.7-9.3); NEUTROPHILS # (AUTO) 7.8 K/uL (1.8-7.7); NEUTROPHILS % (AUTO) 85.5 % (42.2-75.2); PLATELET COUNT (AUTO) 181 K/uL (140-450); RED BLOOD CELL COUNT(AUTO) 2.82 MIL/uL (4.20-6.10); RED CELL DISTRIBUTION WIDTH 13.6 % (11.6-13.7); WHITE BLOOD COUNT (AUTO) 9.2 K/uL (4.8-10.8)
[2019-06-08 06:38] LABS: CREATININE 2.1 mg/dL (0.7-1.3)
--- NOTE | 2019-06-08 06:40 | NUR ---
DR ANNA COME AND REPORT GIVEN TO HIM AND MADE AWARE THAT PT WAS HAVING SLIGHT FEVER AND GO DOWN.
--- NOTE | 2019-06-08 06:52 | NUR ---
MADE AWARE BUN 64 TO DAY. TO FOLLOW
[2019-06-08] MEDS: INSULIN LISPRO SLIDING SCALE 100 UNITS/ML VIAL SUBQ PRN ×4 (07:08→20:57)
[2019-06-08] MEDS: BLOOD GLUCOSE MONITORING 1 DEV DEV FS SCH ×4 (07:09→20:52)
--- NOTE | 2019-06-08 07:22 | NUR ---
REPORT GIVEN TO MARJ LUNA AND LAZ LUNA. PT IS SLEEPING NO MORE FEVER. BLOOD SUGAR 217 AND 4 UNITS OF INSULIN GIVEN SQ,
--- NOTE | 2019-06-08 07:25 | NUR ---
CLARIFICATION OF CHARTING: DRY WEIGHT USED FOR PROPOFOL DRIP IS 69 KG.
--- NOTE | 2019-06-08 07:25 | NUR ---
RECEIVED CHANGE OF SHIFT REPORT FROM PM NURSE AT PATIENT'S BEDSIDE. PATIENT'S DRY WEIGHT IS 62 KG. PATIENT IS SEDATED AND VENTILATED WITH RASS OF -1. PERRL PRESENT WITH PUPILS 3MM BILATERALL. ETT 7.5 (22 AT LIP) TO VENT WITH SETTINGS ACVC: AC 18, FI02: 30%, VT 350, FLOW 75, AND PEEP 5. FLACC 0. LUNG SOUNDS AUSCULTATED AND ARE CLEAR THROUGHOUT ALL LUNG SORIA. S1S2 AUSCULTATED WITH NSR ON BISQUE BRUSHER. BILATERAL UPPER AND LOWER EXTREMITIES 2+ IN STRENGTH. SKIN IS WARM, DRY AND INTACT WITH NONPITTING EDEMA ONLY BILATERALY HANDS. OGT IN PLACE WITH GLYCERNA FEEDING AT 55M/H AND 100CC WATER FLUSH Q6H. 10ML GASTRIC RESIDUALS ASPIRATED, AND POSITIVE PLACEMENT OF OGT CONFIRMED. ABDOMEN IS FIRM ROUND AND NONTENDER. PATIENT HAS MOON AT THIS TIME WITH DARK YELLOW CLEAR URINE. NO BOWEL MOVEMENT AT THIS TIME, ACTIVE BOWEL SOUNDS AUSCULTATED IN ALL QUADRANTS, AND RECTAL BAG IN PLACE. RIGHT UPPER ARM PATENT DOUBLE LUMEN PICC LINE - DRESSING/SITE DRY AND INTACT. PROPOFOL INFUSING 25 MCG/KG/MIN, HEPARIN INFUSING 1100 UNIT/H, AND NS INFUSING AT 30 ML/H. BED IN LOW POSITION. WILL CONTINUE TO MONITOR.
[2019-06-08] MEDS: ALBUTEROL SULFATE/IPRATROPIU 3 ML SOL IH SCH ×3 (07:43→19:19)
--- NOTE | 2019-06-08 07:45 | NUR ---
VAP ORAL CARE PERFORMED PER ORDERS. PATIENT EXHIBITS NO SIGNS OF ACUTE STRESS AT THIS TIME. WILL CONTINUE TO MONITOR
--- NOTE | 2019-06-08 08:00 | NUR ---
THERE ARE CLARIFICATION OF CHARTING FOR SHIFT ASSESSMENT AND RESTRAINTS FOR [id number] ON 06/08/2019.
--- NOTE | 2019-06-08 08:55 | NUR ---
PT SEEN AND EXAMINED BY DR. COLON. NO NEW ORDER AT THIS TIME.
[2019-06-08] MEDS: DOCUSATE 100 MG/10 ML UDC GT SCH ×2 (09:00→20:52)
[2019-06-08] MEDS: PANTOPRAZOLE 40 MG INJ VIAL IVP SCH (09:52)
[2019-06-08] MEDS: ASPIRIN 81 MG TAB.CHEW PO SCH (09:53)
[2019-06-08] MEDS: ATORVASTATIN 20 MG TAB PO SCH (09:53)
--- NOTE | 2019-06-08 11:20 | NUR ---
SEDATION OFF FOR SBT. FAMILY AT BEDSIDE. VSS. SAFETY PRECAUTIONS IN PLACE. WILL CONTINUE TO MONITOR.
--- NOTE | 2019-06-08 11:45 | NUR ---
VAP ORAL CARE PERFORMED PER ORDERS. PATIENT EXHIBITS NO SIGNS OF ACUTE STRESS AT THIS TIME. WILL CONTINUE TO MONITOR
--- NOTE | 2019-06-08 12:10 | NUR ---
PT STILL ON SBT. FAMILY AT BEDSIDE. RR 35, SPO2 99%, BP 119/73, HR 92. PT ABLE TO FOLLOW COMMANDS. REMINDED PT TO TAKE DEEP, SLOW BREATHS. SAFETY MEASURES ENSURED. WILL CONTINUE TO MONITOR.
--- NOTE | 2019-06-08 12:35 | NUR ---
CPAP WEANING ENDED AT 1235 AND VENTILATOR AUTOMATICALLY SWITCHED BACK TO ACVC MODE. PATIENT TOLERATED WEANING WELL. WILL CONTINUE TO MONITOR. PROPOFOL RESTARTED AT PREVIOUS RATE OF 25MCH/KG/MIN.
--- NOTE | 2019-06-08 14:55 | NUR ---
DR. BRIGGS AT BEDSIDE.
--- NOTE | 2019-06-08 15:36 | NUR ---
DR. ANNA AT BEDSIDE AFTER NOTIFYING HIM OF PATIENT'S LOW URINE OUTPUT: 105ML IN THE PAST 8.5H. BEFORE NOTIFYING HIM, MOON BALLOON WAS CHECKED, AND MOON CATHETER WAS FLUSHED WITH 20CC OF NS.
--- NOTE | 2019-06-08 17:00 | NUR ---
DR. ROBINS IN TO SEE AND EXAMINE PT. WILL FOLLOW UP ON ORDERS.
--- NOTE | 2019-06-08 17:26 | NUR ---
Sedation vacation started and SBT trail initiated with a peep 5 and PS 10, FIO2 30%. Pt lance well for 70mins. SBT ended due to increased RR of 37. Spoke with Alem ORTA, he would like to continue CPAP trail tomorrow and see if pt can ho for 3hrs. Will indorse to NOC shift.
--- NOTE | 2019-06-08 18:00 | NUR ---
CLEANED PATIENT, PERFORMED ORAL CARE, AND CHANGED PATIENT'S LINENS. PATIENT TOLERATED CARE WELL. WILL CONTINUE TO MONITOR. Addendum: 06/08/19 at 1937 by Maurice Lock RN TIME OF CARE: 2205
--- NOTE | 2019-06-08 19:30 | NUR ---
PT HAS EYES CLOSED; AROUSABLE. RASS -3, SEDATED ON PROPOFOL DRIP. MOVING EXTREMITIES. YANCY SOFT WRIST RESTRAINTS IN PLACE; TRYING TO REMOVE LINES/TUBES, REORIENTED PT. TRACE EDEMA NOTED, PALPABLE PULSES TO PERIPHERAL EXTREMITIES. LUNG SOUNDS CLEAR/ DIMINISHED BILATERALLY. UNLABORED. OGT IN PLACE; +PLACEMENT, FEEDINGS RUNNING; NO RESIDUALS NOTED. MOON CATH DRAINING CLEAR YELLOW URINE NOTED. SKIN INTACT. PICC LINE NOTED TO RIGHT UPPER ARM. PROPOFOL DRIP RUNNING @ 25 MCG/KG/MIN. BED LOCKED IN LOWEST POSITION. DRY WEIGHT: 69 KG
--- NOTE | 2019-06-08 22:23 | NUR ---
PT TURNED AND REPOSITIONED
[2019-06-09] VITALS (56 sets, daily range): BP systolic 92–130; BP diastolic 54–80
--- NOTE | 2019-06-09 00:30 | NUR ---
PT TURNED REPOSITIONED; FLACC O. NO S/S OF ACUTE DISTRESSS NOTED.
[2019-06-09] MEDS: ACETAMINOPHEN 325 MG TAB PO PRN (01:15)
[2019-06-09] MEDS: PROPOFOL 1000 MG/100 ML PREMIX 100 ML IV PRN (01:15)
[2019-06-09] MEDS: MORPHINE SULFATE 2 MG/ML SYR IVP PRN (01:55)
--- NOTE | 2019-06-09 04:30 | NUR ---
AM CARE DONE, LINEN CHANGED. PT TOLERATED WELL.
[2019-06-09] MEDS: CLINDAMYCIN 600 MG in DEXTROSE 5% 50 ML IV SCH ×3 (04:35→21:37)
--- NOTE | 2019-06-09 06:00 | NUR ---
DR TIDWELL @ BEDSIDE
[2019-06-09 06:43] LABS: ANION GAP 7.6 (8-16); CARBON DIOXIDE 33.8 mmol/L (21-32); CREATININE 2.1 mg/dL (0.7-1.3); POTASSIUM 5.4 mmol/L (3.5-5.1)
[2019-06-09 06:46] LABS: MAGNESIUM 2.8 mg/dL (1.8-2.4); PHOSPHORUS 5.2 mg/dL (2.5-4.9)
[2019-06-09] MEDS: INSULIN LISPRO SLIDING SCALE 100 UNITS/ML VIAL SUBQ PRN ×3 (06:59→21:58)
[2019-06-09] MEDS: BLOOD GLUCOSE MONITORING 1 DEV DEV FS SCH ×4 (07:19→21:56)
--- NOTE | 2019-06-09 07:23 | NUR ---
REPORT GIVEN TO DAY SHIFT, FOR CONTINUITY OF CARE
--- NOTE | 2019-06-09 07:34 | NUR ---
RECEIVED INTUBATED PT WITH A 7.5 ETT SECURED @24TEETH/GUMS ON VENT. SETTINGS AC/VC 18, VT 350, PEEP 5 AND FIO2 35%. PT IS SEDATED AT THIS TIME NOT IN ANY DISTRESS. VENT IS PLUGGED INTO A RED OUTLET WITH ALARMS ON AND FUNCTIONING. WILL CONTINUE TO MONITOR.
[2019-06-09] MEDS: ALBUTEROL SULFATE/IPRATROPIU 3 ML SOL IH SCH ×4 (07:35→19:58)
[2019-06-09 07:46] LABS: BASOPHILS # (AUTO) 0.1 K/uL (0.00-0.22); BASOPHILS % (AUTO) 0.7 % (0.0-2.0); EOSINOPHILS # (AUTO) 0.3 K/uL (0-0.4); EOSINOPHILS % (AUTO) 3.2 % (0.0-4.0); HEMATOCRIT 26.3 % (36-52); HEMOGLOBIN 8.6 g/dL (12.0-18.0); LYMPHOCYTES # (AUTO) 0.6 K/uL (2.0-11.5); LYMPHOCYTES % (AUTO) 7.7 % (20.5-51.1); MEAN CORPUSCULAR HEMOGLOBIN 31 pg (27-31); MEAN CORPUSCULAR HGB CONC 33 g/dL (33-37); MEAN CORPUSCULAR VOLUME 95.6 fL (80-94); MONOCYTES # (AUTO) 0.5 K/uL (0.8-1.0); MONOCYTES % (AUTO) 6.1 % (1.7-9.3); NEUTROPHILS # (AUTO) 6.9 K/uL (1.8-7.7); NEUTROPHILS % (AUTO) 82.3 % (42.2-75.2); PLATELET COUNT (AUTO) 174 K/uL (140-450); RED BLOOD CELL COUNT(AUTO) 2.76 MIL/uL (4.20-6.10); RED CELL DISTRIBUTION WIDTH 14.1 % (11.6-13.7); WHITE BLOOD COUNT (AUTO) 8.4 K/uL (4.8-10.8)
--- NOTE | 2019-06-09 08:00 | NUR ---
ON DUTY RECEIVED THIS PT. LYING ON BED, VENT ON. SEDATION ON AND RESTRAINT ON. VS STABLE. NO ACUTE DISTRESS. KEEP CLOSE WATCHING.
[2019-06-09] MEDS ORDERED: SODIUM POLYSTYRENE 15 GM/60 ML UDBTL PO SCH (09:30)
[2019-06-09] MEDS: ASPIRIN 81 MG TAB.CHEW PO SCH (09:32)
[2019-06-09] MEDS: PANTOPRAZOLE 40 MG INJ VIAL IVP SCH (09:33)
[2019-06-09] MEDS: ATORVASTATIN 20 MG TAB PO SCH (09:34)
[2019-06-09] MEDS: DOCUSATE 100 MG/10 ML UDC GT SCH ×2 (09:36→21:30)
[2019-06-09] MEDS: NACL 0.45% 1,000 ML IV SCH (09:40)
--- NOTE | 2019-06-09 10:00 | NUR ---
NA+ LEVEL HIGH 153. MD AWARE. IV FLUID CHANGED TO NS0.45% TUBE FEEDING CHANGED TO H2O Q4H 300ML.
--- NOTE | 2019-06-09 11:00 | NUR ---
PROPOFOL WAS TURNED OFF FOR WEANING OF VENTULATOR IS ON PROGRESS.
--- NOTE | 2019-06-09 11:10 | NUR ---
PT PLACED ON SBT. CPAP 5 PS 10 FIO2 30%. NURSE AND CHARGE NURSE MADE AWARE. VENT ALARMS SET APPROPRIATELY WITH BACKUP SETTINGS/MODE INITIATED. WILL CONTINUE TO MONITOR.
--- NOTE | 2019-06-09 13:37 | NUR ---
PT RETURNED TO AC/VC 18, VT 350, PEEP 5 AND FIO2 30%. PT ON CPAP BECAME TACHYPNEIC AND WOB INCREASED. NOTIFIED NURSE AND CHARGE NURSE. WILL CONTINUE TO MONITOR.
--- NOTE | 2019-06-09 14:00 | NUR ---
PT WAS ON WEANING TRIAL. BREATHING RATE GONE UP TO 40'S. RT CAME, STOPPED MEANING, PUT VENT ON AC AGAIN. PROPOFOL RESTARTED TO 25MCG.
--- NOTE | 2019-06-09 17:42 | NUR ---
PT REMAINS ON DOCUMENTED VENT SETTINGS. ETT IS SECURE WITH A PATENT AIRWAY. VENT ALARMS REMAIN ON AND FUNCTIONING. PT IS TACHYPNEIC AT THIS TIME AND NURSE IS AWARE. PT SEDATED. WILL CONTINUE TO MONITOR.
[2019-06-09 18:48] LABS: ANION GAP 7.4 (8-16); CARBON DIOXIDE 34.1 mmol/L (21-32); POTASSIUM 5.5 mmol/L (3.5-5.1)
[2019-06-09 18:55] LABS: MAGNESIUM 2.8 mg/dL (1.8-2.4); PHOSPHORUS 4.4 mg/dL (2.5-4.9)
--- NOTE | 2019-06-09 19:20 | NUR ---
RECEIVED REPORT FROM DAYSHIFT NURSE FOR CONTINUITY OF CARE, AT PATIENTS BEDSIDE, NO SIGNS OF DISTRESS AT THIS TIME, WILL FOLLOWUP CARE
[2019-06-09] MEDS: LEVOFLOXACIN 500 MG/D5W PREMIX 100 ML IV SCH (19:51)
--- NOTE | 2019-06-09 20:00 | NUR ---
PATIENT RESTING WELL IN BED, EYES CLOSED, PERRL, SLUGGISH 3MM. ON PROPOFOL DRIP, 25 MCG/KG/MIN, DRY WEIGHT 69KG, RASS -3. PATIENT WITHDRAWS TO LIGHT PAIN. ETT TO VENT, ACVC SETTINGS FI02 30%, TV 350, RATE 18, PEEP 5. LUNG SOUNDS DIMINISHED, PATIENT TACHYPNEIC, RESPIRATIONS > 30BPM. EQUAL CHEST RISE. OGT IN PLACE CONNECTED TO TUBE FEEDING- GLUCERNA 1.2 @ 55ML/HR WITH FREE WATER FLUSH 300 ML Q4H. POSITIVE PLACEMENT BY AUSCULTATION, NO RESIDUALS AT THIS TIME. PICC LINE TO RIGHT UPPER ARM, DOUBLE LUMEN, INFUSING PROPOFOL AND 0.45 NS @ 30ML/ HR. S1S2, SR ON MONITOR. BOWEL SOUNDS ACTIVE, ABDOMEN SOFT AND NONTENDER. MOON CATHETER IN PLACE, WITH YELLOW URINE + SEDIMENT NOTED. BILATERAL SOFT WRIST RESTRAINTS IN PLACE, NO SIGNS OF INJURIES. SIDERAILS UP, BED LOCKED AND IN LOW POSITION, HOB 30 DEGREES. WILL FOLLOWUP CARE
[2019-06-09] MEDS: HYDROcodone/APAP 7.5/325 MG 1 TAB PO PRN (21:30)
--- NOTE | 2019-06-09 22:30 | NUR ---
PATIENT STARTING TO DESATURATE AND TREND IN HIGH 80'S. SUCTIONED PATIENT ENDOTRACHEALLY AND ORALLY. REPOSITIONED PATIENT AND CHECKED PULSE OXIMETER AND SATURATIONS ARE MAINTAINING BELOW 92%, CALLED RT AND RT INCREASED FI02 TO 35%. SATURATIONS WITHIN NORMAL LIMITS NOW
--- NOTE | 2019-06-09 23:00 | NUR ---
MOON CATHETER IN PLACE BUT BHAVIK PADS ARE FULLY SOILED, CHECKED INFLATION BALLOON AND 10ML IN PLACE FOR INFLATION, FLUSHED MOON LINE AND CHECKED SITE. SEDIMENT, AND YELLOW URINE NOTED IN COLLECTION BAG. MADE AWARE, OK TO REPLACE MOON CATHETER. REPLACED MOON AND APPLIED TOWELS TO CHECK FOR LEAKAGE, WILL CONTINUE TO MONITOR.
--- NOTE | 2019-06-09 23:40 | NUR ---
PATIENTS VENTILATOR CONTINUES TO ALARM, SUCTIONED PATIENT, REPOSITIONED PATIENT. RT MADE AWARE, ADMINISTERED BREATHING TREATMENT, 02 SATS AND RESPIRATIONS WNL. WILL CONTINUE CLOSE MONITORING
[2019-06-10] VITALS (105 sets, daily range): BP systolic 86–113; BP diastolic 51–70
--- NOTE | 2019-06-10 00:10 | NUR ---
ORAL CARE PROVIDED, PATIENT TOLERATED WELL, TEMPERATURE 98.9-99.4, SKIN WARM TO TOUCH, COOL COMPRESS APPLIED TO FOREHEAD. FLACC 0
[2019-06-10] MEDS: PROPOFOL 1000 MG/100 ML PREMIX 100 ML IV PRN ×3 (00:15→16:33)
[2019-06-10] MEDS: ALBUTEROL SULFATE/IPRATROPIU 3 ML SOL IH PRN (00:49)
--- NOTE | 2019-06-10 02:00 | NUR ---
SOFT WRIST RESTRAINTS REMOVED, SKIN INTACT, CAP REFILL <3 SECONDS. PROPOFOL INFUSING AT 25 MCG/KG/MIN, RASS -3.
--- NOTE | 2019-06-10 04:00 | NUR ---
SOFT WRIST RESTRAINTS REMOVED TO ASSESS SKIN, SKIN INTACT NO INJURIES, SKIN IS WARM TO TOUCH, TEMPERATURE 99.7. ETT TO VENT- 35% FI02, TV 350, RATE 18, PEEP 5. PROPOFOL INFUSING 25 MCG/KG/MIN WITH RASS -3. RIGHT UPPER ARM PICC IN PLACE, INTACT, MOON CATHETER IN PLACE, NO SIGNS OF LEAKAGE.
--- NOTE | 2019-06-10 05:15 | NUR ---
SKIN CARE, ORAL CARE, CATHETER CARE AND SPONGE BATH PROVIDED, PATIENTS SKIN IS INTACT AND WARM TO TOUCH, CHECKED TEMPERATURE VIA TEMPORAL ARTERY SCAN, SAYS 99.7. CHECKED RECTAL TEMPERATURE AND IT IS 102.7. ADMINISTER TYLENOL PRN, APPLY ICE PACKS, AND CALLED FOR COOLING BLANKET. WILL CARRY OUT
[2019-06-10] MEDS: ACETAMINOPHEN 325 MG TAB PO PRN (05:38)
[2019-06-10] MEDS: CLINDAMYCIN 600 MG in DEXTROSE 5% 50 ML IV SCH ×3 (05:38→21:16)
--- NOTE | 2019-06-10 05:45 | NUR ---
RESIDENT DOCTOR IN TO ASSESS PATIENT. ENDORSED THAT THE LAST CHEST XRAY WAS DONE OVER 3 DAYS AGO, DOCTOR AWARE OF WORSENING LUNG SOUNDS, WILL PUT IN ORDERS FOR CHEST XRAY. MD AWARE OF CORE TEMPERATURE
[2019-06-10] MEDS ORDERED: SODIUM POLYSTYRENE 15 GM/60 ML UDBTL GT SCH (06:30)
[2019-06-10 06:35] LABS: ANION GAP 6.9 (8-16); CARBON DIOXIDE 34.1 mmol/L (21-32)
[2019-06-10 06:37] LABS: MAGNESIUM 2.8 mg/dL (1.8-2.4); PHOSPHORUS 5.1 mg/dL (2.5-4.9)
[2019-06-10 07:11] LABS: BASOPHILS % (AUTO) 0.6 % (0.0-2.0); EOSINOPHILS # (AUTO) 0.1 K/uL (0-0.4); EOSINOPHILS % (AUTO) 1.1 % (0.0-4.0); HEMATOCRIT 25.7 % (36-52); HEMOGLOBIN 8.4 g/dL (12.0-18.0); LYMPHOCYTES # (AUTO) 0.6 K/uL (2.0-11.5); LYMPHOCYTES % (AUTO) 7.1 % (20.5-51.1); MEAN CORPUSCULAR HEMOGLOBIN 31 pg (27-31); MEAN CORPUSCULAR HGB CONC 33 g/dL (33-37); MEAN CORPUSCULAR VOLUME 94.8 fL (80-94); MONOCYTES # (AUTO) 0.6 K/uL (0.8-1.0); MONOCYTES % (AUTO) 6.8 % (1.7-9.3); NEUTROPHILS # (AUTO) 7.2 K/uL (1.8-7.7); NEUTROPHILS % (AUTO) 84.4 % (42.2-75.2); PLATELET COUNT (AUTO) 171 K/uL (140-450); RED BLOOD CELL COUNT(AUTO) 2.71 MIL/uL (4.20-6.10); WHITE BLOOD COUNT (AUTO) 8.5 K/uL (4.8-10.8)
[2019-06-10] MEDS: BLOOD GLUCOSE MONITORING 1 DEV DEV FS SCH ×4 (07:13→21:05)
[2019-06-10] MEDS: NACL 0.45% 1,000 ML IV SCH ×2 (07:15→19:45)
[2019-06-10] MEDS: INSULIN LISPRO SLIDING SCALE 100 UNITS/ML VIAL SUBQ PRN ×4 (07:16→21:17)
[2019-06-10] MEDS: ALBUTEROL SULFATE/IPRATROPIU 3 ML SOL IH SCH ×3 (07:20→19:19)
--- NOTE | 2019-06-10 07:29 | NUR ---
RECEIVED INTUBATED PT WITH A 7.5 ETT SECURED @23TEETH/GUMS ON VENT. SETTINGS AC/VC 18, VT 350, PEEP 5 AND FIO2 35%. PT IS SEDATED AT THIS TIME NOT IN ANY DISTRESS. VENT IS PLUGGED INTO A RED OUTLET WITH ALARMS ON AND FUNCTIONING. WILL CONTINUE TO MONITOR.
--- NOTE | 2019-06-10 07:30 | NUR ---
RECEIVED PT WITH RASS -3, PERRL, ETT TO VENT AC/VC 18, FIO2 35%, 350 TV, PEEP 5. OGT IN PLACE WITH NO RESIDUAL. FEEDING ORDERED. PICC LINE TO LEFT UPPER ARM WITH DOUBLE LUMEN ALL PATENT AND ASYMPTOMATIC. PROPOFOL IN TITRATION ORDERED WITH DRY WEIGHT OF 69KG. GENERALIZED NON-PITTING EDEMA NOTED. BOWEL SOUNDS ACTIVE. RECTAL COLLECTION BAG INTACT. MOON CATHETER DRAINING DARK YELLOW WITH SEDIMENTS. CAP REFILL WITHIN 3 SEC. TEMP OF 99.7 F NOTED. COOLING MEASURES IN PLACE. CALL LIGHT IN REACH AND HOB KEPT ELEVATED. WILL CONTINUE TO MONITOR.
[2019-06-10] MEDS: DOCUSATE 100 MG/10 ML UDC GT SCH ×2 (08:40→21:16)
[2019-06-10] MEDS: PANTOPRAZOLE 40 MG INJ VIAL IVP SCH (08:40)
[2019-06-10] MEDS: ATORVASTATIN 20 MG TAB PO SCH (08:40)
[2019-06-10] MEDS: ASPIRIN 81 MG TAB.CHEW PO SCH (08:40)
--- NOTE | 2019-06-10 08:40 | NUR ---
RESIDENTS ARE MAKING ROUNDS AT THIS TIME.
--- NOTE | 2019-06-10 08:50 | NUR ---
MEDS ADMINISTERED ORDERED. VAP ORAL CARE PROVIDED AND REPOSITIONED TO OFF LOAD AND FOR COMFORT. AFEBRILE AT THIS TIME. CONTINUE TO MONITOR.
--- NOTE | 2019-06-10 10:31 | NUR ---
06/10/19 RD FOLLOW UP COMPLETED PLEASE REFER TO NUTRITION ASSESSMENT UNDER CARE ACTIVITY FOR ESTIMATED NUTRITIONAL NEEDS. 1. RECOMMEND GLUCERNA 1.2 @ 55ML/HR, WHICH PROVIDES 1584 KCAL AND 79 G PROTEIN. ALONGSIDE PROPOFOL, REGIMEN MEETS >75% ESTIMATED NEEDS. 2. RECOMMEND TO CONTINUE FWF OF 100ML Q6H 3. RD TO FOLLOW-UP 2-3 DAYS, HIGH RISK LAURIE CONTRERAS RD
--- NOTE | 2019-06-10 10:45 | NUR ---
PT HAD LARGE BROWN SOFT/WATERY STOOL. INCONTINENCE CARE AND HYGIENE PROVIDED. REPOSITIONED TO OFF LOAD AND FOR COMFORT. AFEBRILE AT THIS TIME.
--- NOTE | 2019-06-10 10:55 | NUR ---
DR. BROWN IN TO SEE PT. WILL CARRY OUT NEW ORDERS RECEIVED.
--- NOTE | 2019-06-10 11:04 | NUR ---
2 DAUGHTERS VISITING AT BED SIDE.
--- NOTE | 2019-06-10 11:26 | NUR ---
CE=619. INSULIN COVERAGE ADMINISTERED PER SLIDING SCALES. AFEBRILE. FLACC 0.
--- NOTE | 2019-06-10 12:11 | NUR ---
FIO2 TITRATED TO 30%. PT NOT IN ANY DISTRESS AT THIS TIME FAMILY IS BEDSIDE. PT SUCTIONED OBTAINED SMALL AMOUNT OF THICK YELLOW SECRETONS, AIRWAY IS PATENT AND ETT IS SECURE. WILL CONTINUE TO MONITOR.
--- NOTE | 2019-06-10 13:09 | NUR ---
REPOSITIONED AND VAP ORAL CARE PROVIDED. AFEBRILE. FLACC 0. RASS -3.
--- NOTE | 2019-06-10 13:30 | NUR ---
CALLED RADIOLOGY FOR CT SCAN AND THEY WILL CALL US TO LET US KNOW FOR THE SCHEDULED TIME.
--- NOTE | 2019-06-10 14:10 | NUR ---
DR. MORRISON IN TO SEE PT. WILL CARRY OUT NEW ORDERS RECEIVED.
[2019-06-10] MEDS ORDERED: ALBUMIN HUMAN 25% 50 ML IV SCH (14:15)
--- NOTE | 2019-06-10 15:38 | NUR ---
PT NOT IN ANY DISTRESS AT THIS TIME. ETT SECURE WITH A PATENT AIRWAY. WILL CONTINUE TO MONITOR.
--- NOTE | 2019-06-10 16:01 | NUR ---
CD=[id number]. INSULIN COVERAGE ADMINISTERED PER SLIDING SCALES. ORAL VAP CARE PROVIDED. REPOSITIONED TO OFF LOAD. AFEBRILE. FLACC 0. RACC -3. Addendum: 06/10/19 at 1625 by Fiona Hull RN WRONG TYPE- DELETE "RACC -3" AND CHANGE TO "RASS -3."
--- NOTE | 2019-06-10 17:00 | NUR ---
LEAVING FOR CT SCAN OFF UNIT WITH 2 RTS AND THIS NURSE. PT ON PORTABLE MONITOR. VSS.
[2019-06-10 17:15] LABS: ANION GAP 7.8 (8-16); CARBON DIOXIDE 31.8 mmol/L (21-32); CREATININE 1.8 mg/dL (0.7-1.3); POTASSIUM 5.6 mmol/L (3.5-5.1)
--- NOTE | 2019-06-10 17:29 | NUR ---
PT RETURNED FROM CT AND PLACED BACK ON DOCUMENTED VENT SETTINGS. PT NOT IN ANY DISTRESS AT THIS TIME. VENT ALARMS REMAIN ON AND FUNCTIONING. ETT IS SECURE WITH A PATENT AIRWAY. WILL CONTINUE TO MONITOR.
--- NOTE | 2019-06-10 17:30 | NUR ---
RETURNED BACK FROM CT SCAN. PT BACK TO THE BED SIDE MONITOR. TEMP=99.7 F. COOLING MEASURES APPLIED. NO ACUTE DISTRESS NOTED. WILL CONTINUE TO MONITOR.
--- NOTE | 2019-06-10 18:39 | NUR ---
DR. NICHOLSON IN TO SEE PT.
--- NOTE | 2019-06-10 19:12 | NUR ---
BED SIDE REPORT GIVEN TO NIGHT NURSE. VSS WITH NO ACUTE DISTRESS. CALL LIGHT IN REACH. BED TO THE LOWEST POSITION. HOB AT 30 DEGREES.
--- NOTE | 2019-06-10 19:15 | NUR ---
RECEIVED REPORT FROM DAYSHIFT NURSE AT PATIENTS BEDSIDE, NO SIGNS IF DISTRESS AT THIS TIME, WILL FOLLOWUP CARE.
--- NOTE | 2019-06-10 20:05 | NUR ---
RECEIVED PT WITH RASS -3, PERRL, ETT TO VENT AC/VC 18, FIO2 30%, 350 TV, PEEP 5. OGT IN PLACE WITH NO RESIDUAL. FEEDING ORDERED-GLUCERNA 1.2 @ 55ML/HR, FREE WATER FLUSH 300ML Q4H. PICC LINE TO RIGHT UPPER ARM WITH DOUBLE LUMEN ALL PATENT AND ASYMPTOMATIC. PROPOFOL AT 25 MCG/KG/MIN WITH DRY WEIGHT OF 69KG. GENERALIZED NON-PITTING EDEMA NOTED. BOWEL SOUNDS ACTIVE. RECTAL COLLECTION BAG INTACT. MOON CATHETER DRAINING DARK YELLOW/ORANGE WITH SEDIMENTS. CAP REFILL WITHIN 3 SEC. TEMP OF 99.7 F-AXILLARY NOTED. COOLING MEASURES IN PLACE. CALL LIGHT IN REACH AND HOB KEPT ELEVATED. BED LOCKED AND IN LOW POSITION. WILL CONTINUE TO MONITOR.
--- NOTE | 2019-06-10 20:10 | NUR ---
DR. BRIGGS IN TO ASSESS PATIENT AND FOR UPDATES. AWARE OF TEMPERATURE SPIKE IN EARLY A.M, ALSO ENDORSED THAT BLOOD CULTURES AND CHEST XRAY ALREADY ORDERED. WILL CARRY OUT NEW ORDERS FOR IV VANCO AND URINE CULTURE COLLECTION.
[2019-06-10] MEDS ORDERED: VANCOMYCIN PER PHARMACY MC PRN (20:15)
--- NOTE | 2019-06-10 20:20 | NUR ---
VAP ORAL CARE PROVIDED. PATIENT TOLERATED WELL, WHITE CREAMISH SECRETIONS SUCTIONED. CONTINUE TO MONITOR
[2019-06-10] MEDS ORDERED: VANCOMYCIN 1GM/DEXT 5% PREMIX 200 ML IV SCH (21:00)
[2019-06-10] MEDS ORDERED: VANCOMYCIN 1,000 MG VIAL ONE (21:11)
--- NOTE | 2019-06-10 22:04 | NUR ---
stool ob specimen sent to lab as ordered by dr del castillo
--- NOTE | 2019-06-10 22:35 | NUR ---
PATIENTS DAUGHTER CALLED TO ASK FOR UPDATES AND FOR CT AND XRAY RESULTS. WILL NOTIFY MD THAT PATIENT REQUESTING INFO REGARDING RESULTS.WILL FOLLOWUP
[2019-06-11] VITALS (105 sets, daily range): BP systolic 86–129; BP diastolic 52–78
[2019-06-11 00:26] LABS: ANION GAP 7.5 (8-16); CREATININE 1.8 mg/dL (0.7-1.3); POTASSIUM 5.5 mmol/L (3.5-5.1)
--- NOTE | 2019-06-11 00:30 | NUR ---
VAP ORAL CARE PROVIDED. CHECKED TEMPERATURE-98.8 VIA TEMPORAL ARTERY SCAN. FLACC 0. REPOSITIONED TO OFFLOAD PRESSURE SITES
--- NOTE | 2019-06-11 02:36 | NUR ---
IN BED, EYES CLOSED, UNLABORED BREATHING, EQUAL CHEST RISE AND FALL, ETT TO VENT ACVC 18 SETTINGS FI02 30% TV 350 PEEP 5. INFUSING PROPOFOL 25 MCG/KG/MIN, RASS -3. PUPILS REACTIVE TO LIGHT. TEMPERATURE 98.9. WILL CONTINUE TO MONITOR
[2019-06-11] MEDS: PROPOFOL 1000 MG/100 ML PREMIX 100 ML IV PRN (04:01)
--- NOTE | 2019-06-11 04:20 | NUR ---
SPONGE BATH, VAP PROTOCOL, AND MOON CARE PROVIDED. PATIENT SEDATED RASS -3. SKIN INTACT, NO OPEN WOUNDS, MOON CATHETER IN PLACE, RIGHT UPPER PICC LINE IN PLACE, INFUSING PROPOFOL 25 MCG AND 0.45 NS @ 100ML. ETT TO VENT. FLACC 0
[2019-06-11 04:39] LABS: BASOPHILS # (AUTO) 0.1 K/uL (0.00-0.22); BASOPHILS % (AUTO) 0.8 % (0.0-2.0); EOSINOPHILS # (AUTO) 0.6 K/uL (0-0.4); EOSINOPHILS % (AUTO) 7.9 % (0.0-4.0); HEMATOCRIT 23.7 % (36-52); HEMOGLOBIN 7.7 g/dL (12.0-18.0); LYMPHOCYTES # (AUTO) 0.5 K/uL (2.0-11.5); LYMPHOCYTES % (AUTO) 6.8 % (20.5-51.1); MEAN CORPUSCULAR HEMOGLOBIN 31 pg (27-31); MEAN CORPUSCULAR HGB CONC 33 g/dL (33-37); MEAN CORPUSCULAR VOLUME 94.5 fL (80-94); MONOCYTES # (AUTO) 0.4 K/uL (0.8-1.0); MONOCYTES % (AUTO) 5.3 % (1.7-9.3); NEUTROPHILS # (AUTO) 6.2 K/uL (1.8-7.7); PLATELET COUNT (AUTO) 152 K/uL (140-450); RED BLOOD CELL COUNT(AUTO) 2.51 MIL/uL (4.20-6.10); RED CELL DISTRIBUTION WIDTH 13.7 % (11.6-13.7); WHITE BLOOD COUNT (AUTO) 7.8 K/uL (4.8-10.8)
[2019-06-11] MEDS: CLINDAMYCIN 600 MG in DEXTROSE 5% 50 ML IV SCH ×3 (05:03→20:21)
[2019-06-11 05:16] LABS: ANION GAP 5.6 (8-16); CARBON DIOXIDE 33.7 mmol/L (21-32); CREATININE 1.6 mg/dL (0.7-1.3); POTASSIUM 5.3 mmol/L (3.5-5.1)
[2019-06-11 05:19] LABS: MAGNESIUM 2.9 mg/dL (1.8-2.4); PHOSPHORUS 5.3 mg/dL (2.5-4.9)
[2019-06-11 06:00] LABS: NEUTROPHILS % (AUTO) 79.2 % (42.2-75.2)
[2019-06-11] MEDS: INSULIN LISPRO SLIDING SCALE 100 UNITS/ML VIAL SUBQ PRN ×4 (06:30→20:19)
[2019-06-11] MEDS: BLOOD GLUCOSE MONITORING 1 DEV DEV FS SCH ×4 (06:30→20:19)
--- NOTE | 2019-06-11 06:36 | NUR ---
PATIENT TURNED AND REPOSITIONED, FLACC 0, NO CHANGES IN VITALS, BED LOCKED AND IN LOW POSITION, SIDERAILS UP, HOB 30 DEGREES
[2019-06-11] MEDS: ALBUTEROL SULFATE/IPRATROPIU 3 ML SOL IH SCH ×3 (07:07→18:52)
--- NOTE | 2019-06-11 07:25 | NUR ---
RECEIVED PT REPORT FROM ADMINISTRATIVE NURSING SUPERVISOR JEREMY DELCID. PT IN BED, RASS -3. ON PROPOFOL DRIP. RESTRAINTS ARE OFF. ETT TO VENT, SIZE 7.5, 23CM AT TEETH, AC/VC, FIO2 30%, TV 350 ML, RR 18, PEEP 5. PERRL. RR 27, RESPIRATION EVEN AND UNLABORED. LUNG SOUNDS CLEAR, DIMINISHED. HEART RATE REGULAR S1S2 PRESENT, CAP REFILL <3S, PULSES 2+ BILATERAL UPPER AND LOWER EXTREMITIES. ABDOMEN, SOFT, NONTENDER. OGT RUNNING, GLUCERNA 1.2 AT 55 ML/HR, WITH WATER FLUSH 100 ML/HR Q6H. MOON CATH IN PLACE DRAINING CLEAR YELLOW URINE WITH SEDIMENTS. SKIN WARM AND DRY. RIGHT UPPER ARM PICC LINE, RUNNING 1/2NS AT 100 ML/HR, PROPOFOL AT 25 MCG/KG/MIN. DRY WEIGHT 69KG. HOB 30 DEGREES, SIDE RAILS UP X2, BED AT LOWEST POSITION.
[2019-06-11] MEDS: NACL 0.45% 1,000 ML IV SCH ×2 (08:02→17:44)
[2019-06-11] MEDS ORDERED: SODIUM POLYSTYRENE 15 GM/60 ML UDBTL NG SCH (08:10)
--- NOTE | 2019-06-11 08:10 | NUR ---
DR BROWN CAME ORDERED TO DC PROPOFOL AND START PT ON VERSED AND FENTANYL.
[2019-06-11] MEDS: DOCUSATE 100 MG/10 ML UDC GT SCH ×2 (08:26→20:20)
[2019-06-11] MEDS: PANTOPRAZOLE 40 MG INJ VIAL IVP SCH (08:26)
[2019-06-11] MEDS: ASPIRIN 81 MG TAB.CHEW PO SCH (08:26)
[2019-06-11] MEDS: ATORVASTATIN 20 MG TAB PO SCH (08:26)
[2019-06-11] MEDS: methylPREDNISolone SS 125 MG/2 ML VIAL IVP SCH ×2 (08:26→17:44)
[2019-06-11] MEDS: MIDAZOLAM MDV 50 MG in NACL 0.9% 40 ML IV PRN (09:17)
[2019-06-11] MEDS: fentaNYL 1 MG in NACL 0.9% 80 ML IV PRN (09:26)
--- NOTE | 2019-06-11 09:41 | NUR ---
PT OPENS EYES UNABLE TO FOLLOW COMMANDS. PT TACHYPNEIC AT THIS TIME SLIGHTLY IRRITABLE. NURSE MADE AWARE. WILL CONTINUE TO MONITOR.
[2019-06-11] MEDS: HYDROcodone/APAP 7.5/325 MG 1 TAB PO PRN (11:19)
--- NOTE | 2019-06-11 11:30 | NUR ---
PT HAS BROWN WATERY STOOL, MADE DR ANNA AWARE. RECTAL TUBE INSERTED PER MD ORDER. TUBE TIP LUBRICATED, PT HAS NO IMPACTION. TUBE INSERTED WITHOUT DIFFICULTY, INFLATED BALLOON WITH 40ML WATER. PT TOLERATED WELL.
--- NOTE | 2019-06-11 14:00 | NUR ---
DR MORRISON HAS ASSESSED PT. ORDERED TO CHANGE FEEDING TO NEPRO. MADE DR MORRISON AND RESIDENT DR LYNN AWARE POSITIVE BLOOD CULTURE. DR MORRISON ORDERED TO DC PICC LINE, START PERIPHERAL IV AND SENT PICC LINE TIP FOR CULTURE.
--- NOTE | 2019-06-11 15:30 | NUR ---
PT PLACED ON SBT CPAP 5 PS 10 FIO2 30%. WILL CONTINUE TO MONITOR.
--- NOTE | 2019-06-11 16:10 | NUR ---
CALLED KITCHEN FOR TYRESE.
--- NOTE | 2019-06-11 16:50 | NUR ---
STARTED NEPRO AT 55ML/HR, H2O FLUSH 100ML Q6H, ASKED DR ANNA IF HE IS OK WITH ORIGINAL ORDER H2O FLUSH 100ML Q6H, DR ANNA SAID IT'S OK, WE WILL MONITOR HIS SODIUM TOMORROW.
--- NOTE | 2019-06-11 17:40 | NUR ---
PT TOLERATED SBT FOR 2 HOURS WITHOUT INCIDENT. PT PLACED ON AC/VC DOCUMENTED VENT SETTINGS. PT NOT IN ANY DISTRESS AT THIS TIME.
--- NOTE | 2019-06-11 17:52 | NUR ---
PT REMAINS ON DOCUMENTED VENT SETTINGS. PT NOT IN ANY DISTRESS. VENT ALARMS REMAIN ON AND FUNCTIONING. ETT IS SECURE WITH A PATENT AIRWAY.
[2019-06-11] MEDS: LEVOFLOXACIN 500 MG/D5W PREMIX 100 ML IV SCH (18:22)
--- NOTE | 2019-06-11 19:03 | NUR ---
Received pt on vent support at documented settings, suctioned scant amount of thin clear secretions, hhn tx given, tolerated well, no resp distress or SOB noted at this time, 7.5 ETT secured at 23 cm at the lip line, alarms set and audible, ambu bag at bedside, vent plugged into red outlet, cont pulse ox on, vent wiped down, will cont to monitor.
--- NOTE | 2019-06-11 19:20 | NUR ---
RECEIVED REPORT FROM DAYSHIFT NURSE AT PATIENTS BEDSIDE, NO DISTRESS NOTED, WILL FOLLOWUP CARE
--- NOTE | 2019-06-11 19:45 | NUR ---
TURNED AND REPOSITIONED PATIENT, ASSESSED FOR ANY SKIN BREAKDOWN, SKIN INTACT NO WOUNDS NOTED, PROVIDED VAP ORAL CARE. HOB 30 DEGREES
--- NOTE | 2019-06-11 20:00 | NUR ---
RECEIVED PATIENT RESTING WELL IN BED, EYES OPEN TO VOICE, SEDATED WITH RASS -1. VERSED INFUSING 1MG/HR, AND FENTANYL 34.5 MCG/HR -3.45ML/HR. DRY WEIGHT 69 KG. PATIENT HAS ETT TO VENT, ACVC 18 FI02 30% TV 350 PEEP 5. LUNG SOUNDS DIMINISHED THROUGHOUT, BREATHING IS UNLABORED, SYMMETRICAL CHEST RISE. S1S2 HEARD, SR ON MONITOR. ABDOMEN SOFT AND NONTENDER, ACTIVE BOWEL SOUNDS. RECTAL TUBE IN PLACE WITH BROWN LOOSE STOOL NOTED IN BAG. MOON CATHETER IN PLACE, YELLOW URINE WITH SEDIMENT. SKIN IS WARM TO TOUCH, INTACT AND TEMP 99.2 VIA TEMPORAL ARTERY SCAN. APPLIED ICE PACK TO FOREHEAD. TWO PERIPHERAL IV'S IN PLACE, RIGHT WRIST AND RIGHT FOREARM BOTH 20G, BOTH FLUSHED AND PATENT, NO SYMPTOMS. 0.45 NS INFUSING AT 100ML/HR. SIDE RAILS UP, BED LOCKED AND IN LOW POSITION, HOB 30 DEGREES, SAFETY ALARMS IN PLACE, WILL CONTINUE CLOSE MONITORING
--- NOTE | 2019-06-11 20:35 | NUR ---
DR. BRIGGS AT BEDSIDE FOR ASSESSMENT AND UPDATES
--- NOTE | 2019-06-11 20:55 | NUR ---
RESIDENT DOCTOR AT BEDSIDE WITH FAMILY MEMBERS TO ANSWER QUESTIONS AND TO UPDATE ON PATIENTS CONDITION
[2019-06-11] MEDS ORDERED: VANCOMYCIN 1,000 MG in DEXTROSE 5% 250 ML IV SCH (21:00)
[2019-06-12] VITALS (106 sets, daily range): BP systolic 103–155; BP diastolic 61–89
[2019-06-12] MEDS: methylPREDNISolone SS 125 MG/2 ML VIAL IVP SCH ×3 (00:49→16:13)
--- NOTE | 2019-06-12 01:30 | NUR ---
PATIENT TURNED AND REPOSITIONED, PROVIDED VAP ORAL CARE. PATIENT WITHDRAWS TO LIGHT PAIN, OPENS EYES TO VOICE. FLACC 0, NO CHANGES TO VENT SETTINGS
--- NOTE | 2019-06-12 03:21 | NUR ---
HEART RATE HAS BEEN INCREASING, HIGHEST 105 BUT WILL GO BACK DOWN TO 90'S. TEMPERATURE 99.3, PLACED COOLING MEASURES AND WILL CONTINUE CLOSE MONITORING, NO OTHER SYMPTOMS
--- NOTE | 2019-06-12 04:19 | NUR ---
PROVIDED COLD SPONGE BATH, CLEANED SKIN AND DRIED,AND OMON CATHETER CARE, PATIENT TOLERATED WELL. RASS SCORE -1, PATIENT OPENS EYES, WITHDRAWS TO LIGHT PAIN. VERSED INFUSING 1 MG/HR, FENTANYL 34.5 MCG/HR. RIGHT FOREARM RIGHT WRIST PERIPHERAL IV'S 20G FLUSHED AND PATENT. ETT TO VENT, FI02 30% TV 350 RATE 18 PEEP 5. MOON CATHETER AND RECTAL TUBE IN PLACE. FLACC 0, CONTINUE CLOSE MONITORING
[2019-06-12] MEDS: CLINDAMYCIN 600 MG in DEXTROSE 5% 50 ML IV SCH ×3 (05:19→21:22)
--- NOTE | 2019-06-12 06:00 | NUR ---
RESIDENT DOCTORS AT BEDSIDE FOR UPDATES, PATIENT IN STABLE CONDITION, HEART RATE BACK DOWN TO 90'S. NO FEVER AT THIS TIME, 99.2 TEMPORAL ARTERY
[2019-06-12 06:36] LABS: BASOPHILS % (AUTO) 0.1 % (0.0-2.0); HEMATOCRIT 28.7 % (36-52); HEMOGLOBIN 9.5 g/dL (12.0-18.0); LYMPHOCYTES # (AUTO) 0.2 K/uL (2.0-11.5); LYMPHOCYTES % (AUTO) 1.7 % (20.5-51.1); MEAN CORPUSCULAR HEMOGLOBIN 31 pg (27-31); MEAN CORPUSCULAR HGB CONC 33 g/dL (33-37); MEAN CORPUSCULAR VOLUME 93.4 fL (80-94); MONOCYTES # (AUTO) 0.2 K/uL (0.8-1.0); MONOCYTES % (AUTO) 1.6 % (1.7-9.3); NEUTROPHILS # (AUTO) 9.3 K/uL (1.8-7.7); NEUTROPHILS % (AUTO) 96.6 % (42.2-75.2); PLATELET COUNT (AUTO) 203 K/uL (140-450); RED BLOOD CELL COUNT(AUTO) 3.07 MIL/uL (4.20-6.10); RED CELL DISTRIBUTION WIDTH 13.4 % (11.6-13.7); WHITE BLOOD COUNT (AUTO) 9.6 K/uL (4.8-10.8)
[2019-06-12 06:49] LABS: MAGNESIUM 2.7 mg/dL (1.8-2.4)
[2019-06-12 06:50] LABS: ANION GAP 7.5 (8-16); CARBON DIOXIDE 32.6 mmol/L (21-32); CREATININE 1.6 mg/dL (0.7-1.3); POTASSIUM 5.1 mmol/L (3.5-5.1)
--- NOTE | 2019-06-12 06:54 | NUR ---
RECEIVED INTUBATED PT WITH A 7.5 ETT SECURED @23TEETH/[facility] ON VENT. SETTINGS AC/VC 18, VT 350, PEEP 5 AND FIO2 30%. PT IS SEDATED AT THIS TIME NOT IN ANY DISTRESS. VENT IS PLUGGED INTO A RED OUTLET WITH ALARMS ON AND FUNCTIONING. WILL CONTINUE TO MONITOR.
[2019-06-12] MEDS: ALBUTEROL SULFATE/IPRATROPIU 3 ML SOL IH SCH ×3 (06:55→19:35)
[2019-06-12] MEDS: NACL 0.45% 1,000 ML IV SCH (07:00)
--- NOTE | 2019-06-12 07:30 | NUR ---
RECEIVED BEDSIDE REPORT FROM CALL CENTER SPECIALIST RN. PT IS SEDATED, RASS -1. TEMP 98.9. FLACC 0. SINUS TACHYCARDIA ON MONITOR. S1 S2 HEARD. CAP REFILL < 2 SEC. PULSES PALPABLE TO ALL EXTREMITIES. PT IS ETT TO VENT W/ SETTINGS: A/C VC FIO2 30%, VT 350, RR 18, PEEP 5. LUNGS SOUND CLEAR BILATERALLY, DIMINISHED AT BASES. BREATHING EVEN BUT LABORED. OGT IN PLACE, PLACEMENT CONFIRMED, PT IS ON TUBE FEEDING NEPRO AT 55 ML/HR WITH WATER FLUSH 100 ML Q6H, NO RESIDUALS AT THIS TIME. ABDOMEN SOFT, NONDISTENDED, W/ ACTIVE BOWEL SOUNDS. PERIPHERAL IVS BOTH G20 TO RIGHT FOREARM AND RIGHT WRIST PATENT AND INTACT. PT IS ON FENTANYL DRIP AT 34.5 MCG/HR (0.5 MCG/KG/HR), VERSED DRIP AT 1 MG/HR, AND IVF 1/2 NS AT 100 ML/HR. MOON CATH IN PLACE DRAINING DARK YELLOW URINE TO GRAVITY. HOB 30 DEGREES, BED IN LOWEST POSITION LOCKED, CALL LIGHT WITHIN REACH. NO SIGNS OF DISTRESS NOTED AT THIS TIME. WILL CONTINUE TO MONITOR.
[2019-06-12] MEDS: BLOOD GLUCOSE MONITORING 1 DEV DEV FS SCH ×4 (07:37→21:21)
[2019-06-12] MEDS: fentaNYL 1 MG in NACL 0.9% 80 ML IV PRN (08:00)
--- NOTE | 2019-06-12 08:05 | NUR ---
DR. BURR AND RESIDENT GROUP IN TO SEE PT. WILL FOLLOW UP ON ORDERS.
[2019-06-12] MEDS: PANTOPRAZOLE 40 MG INJ VIAL IVP SCH (08:15)
[2019-06-12] MEDS: DOCUSATE 100 MG/10 ML UDC GT SCH ×2 (08:15→21:22)
[2019-06-12] MEDS: ATORVASTATIN 20 MG TAB PO SCH (08:16)
[2019-06-12] MEDS: ASPIRIN 81 MG TAB.CHEW PO SCH (08:16)
[2019-06-12] MEDS: INSULIN LISPRO SLIDING SCALE 100 UNITS/ML VIAL SUBQ PRN ×4 (08:26→21:33)
--- NOTE | 2019-06-12 08:50 | NUR ---
PT SEEN AND EXAMINED BY DR. COLON. UPDATES GIVEN ON PT'S CONDITION. ORDERED TO STOP IV FLUID 1/2 NS RUNNING AT 100 ML/HR AT THIS TIME. WILL FOLLOW UP ON ANY NEW ORDERS.
[2019-06-12] MEDS: FUROSEMIDE 40 MG/4 ML VIAL IVP SCH (09:22)
[2019-06-12] MEDS: MIDAZOLAM MDV 50 MG in NACL 0.9% 40 ML IV PRN (09:24)
--- NOTE | 2019-06-12 09:35 | NUR ---
DR. HUITRON AT BEDSIDE, UPDATES GIVEN ON PT'S CONDITION. SEDATION TURNED OFF AT THIS TIME BEFORE SBT. RT TRINA MADE AWARE.
--- NOTE | 2019-06-12 09:51 | NUR ---
PT OFF SEDATION AND PLACED ON SBT CPAP 5 PS 10 FIO2 20%. VENT ALARMS SET APPROPRIATELY AND BACKUP MODE SET IN CASE PT GOES OUT OF ALARM RANGE. NURSE MADE AWARE. WILL CONTINUE TO MONITOR. Addendum: 06/12/19 at 1153 by Ford Avila RT *CORRECTION FIO2 30%
[2019-06-12] MEDS ORDERED: PATIROMER CALCIUM SORBITEX 8.4 GM PKT PO SCH (10:00)
--- NOTE | 2019-06-12 11:35 | NUR ---
PT'S AT BEDSIDE, UPDATED ON PT'S CONDITION AND QUESTIONS ANSWERED WITH THE HELP OF CZECH SPEAKING STAFF AT BEDSIDE.
--- NOTE | 2019-06-12 11:51 | NUR ---
PT RETURNED TO AC/VC 18, VT 350, PEEP 5 AND FIO2 30%. PT BECAME TACHYPNEIC LOW 30'S RR AND RESTLESS/AGITATED. NURSE MADE AWARE. VENT ALARMS ON AND FUNCTIONING. WILL CONTINUE TO MONITOR.
--- NOTE | 2019-06-12 14:40 | NUR ---
WOUND CARE NURSE AT BEDSIDE TO EVALUATE PT'S SKIN CONDITION. TURNED AND REPOSITIONED FOR COMFORT AND OFF LOAD PRESSURE AREAS. PT TOLERATED WELL. NO SIGNS OF DISTRESS AT THIS TIME.
--- NOTE | 2019-06-12 14:42 | NUR ---
06/12/19 RD FOLLOW UP COMPLETED PLEASE REFER TO NUTRITION ASSESSMENT UNDER CARE ACTIVITY FOR ESTIMATED NUTRITIONAL NEEDS. 1. RECOMMEND NEPRO @ 35ML/HR -THIS WILL PROVIDE 1512 KCAL AND 68 G PROTEIN. 2. RECOMMEND FWF OF 100ML Q6H 3. RD TO FOLLOW-UP 2-3 DAYS, HIGH RISK DANIEL ROBERTS RD
--- NOTE | 2019-06-12 14:50 | NUR ---
SPO2 FLUCTUATES BETWEEN 88-92%. RT TRINA MADE AWARE.
--- NOTE | 2019-06-12 14:55 | NUR ---
PT DESATURATING TO 88%. FIO2 INCREASED TO 35% SPO2 NOW 93%. PT SUCTIONED OBTAINED SCANT AMOUNT OF THICK CLEAR SECRETIONS, AIRWAY IS PATENT AND ETT IS SECURE. WILL CONTINUE TO MONITOR. NURSE AWARE OF CHANGE.
--- NOTE | 2019-06-12 15:09 | NUR ---
CHEST X-RAY AT BEDSIDE. VSS. PT NOT IN ANY DISTRESS AT THIS TIME.
--- NOTE | 2019-06-12 17:35 | NUR ---
PT NOT IN ANY DISTRESS AT THIS TIME. ETT REMAINS SECURE WITH A PATENT AIRWAY. VENT ALARMS REMAIN ON AND FUNCTIONING.
--- NOTE | 2019-06-12 18:05 | NUR ---
TURNED AND REPOSITIONED FOR COMFORT AND OFF LOADING PRESSURE AREAS. TEMP 99.4. COOLING MEASURES IN PLACE. BED IN LOWEST POSITION LOCKED. HOB 30 DEGREES. CALL LIGHT WITHIN REACH. NO SIGNS OF ACUTE DISTRESS NOTED. WILL CONTINUE TO MONITOR.
--- NOTE | 2019-06-12 19:20 | NUR ---
CHANGE OF SHIFT REPORT GIVEN BY DAY SHIFT. PATIENT SEDATED IN BED ON FENTANYL 3.45 ML/HR AND VERSED 1ML/HR. PATIENT ETT TO VENT FIO2 35-VT [id number] 65-PEEP5. RFA 20 G. R WRIST 20 G. DRY WEIGHT 69KG AND RASS -1. HR TACHY AND REGULAR. UPPER LUNGS CLEAR. LOWER LUNGS CRACKLES. RT AT BEDSIDE. LUNGS SYMMETRICAL BILATERALLY. PERRL BILATERALLY. BOWEL SOUNDS ACTIVE IN ALL [address]CT[address] TUBE IN PLACE. MOON CATHETER IN PLACE. OGT TUBE TO FEEDING NEPRO AT 35 WITH [address] ON MONITOR[address] SAFETY MEASURES IN PLACE. SKIN INTACT. BED IN LOWEST POSITION. FAMILY AT BEDSIDE. PATIENT RESPONDS TO TOUCH. RT AT BEDSIDE. WILL CONTINUE TO MONITOR
--- NOTE | 2019-06-12 19:25 | NUR ---
GLUCOSE 434 BUN 79 CALLED RESIDENTS AT 0720 AND 0730
--- NOTE | 2019-06-12 19:26 | NUR ---
REPORT GIVEN TO MEDICATION COORDINATOR RN FOR CONTINUITY OF CARE. PT IS IN STABLE CONDITION.
--- NOTE | 2019-06-12 19:53 | NUR ---
FAMILY PRESENT AT BEDSIDE
--- NOTE | 2019-06-12 20:09 | NUR ---
[facility]
--- NOTE | 2019-06-12 20:34 | NUR ---
RT AT BEDSIDE. BX TX GIVEN
--- NOTE | 2019-06-12 20:37 | NUR ---
DR ORR PRESENT AT BEDSIDE. UPDATED ON STATUS
--- NOTE | 2019-06-12 21:00 | NUR ---
PATIENT BLOOD SUGAR WAS CHECKED BY CHARGE NURSE. RESULT FOR BLOOD SUGAR CHECK WAS 302. INSULIN COVERAGE NEEDED. WILL FOLLOW MD SLIDING SCALE ORDER.
--- NOTE | 2019-06-12 21:01 | NUR ---
FAMILY PRESENT AT BEDSIDE
--- NOTE | 2019-06-12 21:14 | NUR ---
CHARGE NURSE CALLED PHARMACY ABOUT ASPEN STARR
--- NOTE | 2019-06-12 21:17 | NUR ---
VANCO TROUGH RESULT IS 10.7 DONE AT 2000H ; RESULT REPORTED TO AFTER HOURS PHARMACY, SHE SAID SHE'LL CHANGE THE DOSE SINCE THE RESULT IS LOW.
[2019-06-12] MEDS ORDERED: VANCOMYCIN 1,250 MG in DEXTROSE 5% 500 ML IV SCH (21:30)
[2019-06-12] MEDS ORDERED: VANCOMYCIN 1,000 MG VIAL ONE (21:55)
--- NOTE | 2019-06-12 22:28 | NUR ---
DR BRIGGS PRESENT AT BEDSIDE. UPDATED ON PATIENT STATUS
--- NOTE | 2019-06-12 22:40 | NUR ---
RT AT BEDSIDE. BREATHING TX GIVEN
[2019-06-12] MEDS: ALBUTEROL SULFATE/IPRATROPIU 3 ML SOL IH PRN (23:43)
[2019-06-13] VITALS (107 sets, daily range): BP systolic 105–138; BP diastolic 64–92
--- NOTE | 2019-06-13 | NUR ---
VAP ORAL CARE PERFORMED
[2019-06-13] MEDS: methylPREDNISolone SS 125 MG/2 ML VIAL IVP SCH ×3 (00:50→17:49)
--- NOTE | 2019-06-13 01:26 | NUR ---
RT AT BEDSIDE
--- NOTE | 2019-06-13 02:12 | NUR ---
PATIENTS TEMPERATURE TEMPORAL 98.4
--- NOTE | 2019-06-13 04:30 | NUR ---
MORNING CARE PERFORMED WITH SHEARING MACHINE FEEDER. CATHETER CARE. VAP ORAL CARE. REPOSITIONING
[2019-06-13] MEDS: CLINDAMYCIN 600 MG in DEXTROSE 5% 50 ML IV SCH ×3 (05:26→21:34)
--- NOTE | 2019-06-13 06:01 | NUR ---
DR TIDWELL AT BEDSIDE
[2019-06-13 06:33] LABS: HEMATOCRIT 28.6 % (36-52); HEMOGLOBIN 9.3 g/dL (12.0-18.0); LYMPHOCYTES # (AUTO) 0.1 K/uL (2.0-11.5); LYMPHOCYTES % (AUTO) 0.9 % (20.5-51.1); MEAN CORPUSCULAR HEMOGLOBIN 30 pg (27-31); MEAN CORPUSCULAR HGB CONC 32 g/dL (33-37); MEAN CORPUSCULAR VOLUME 93.8 fL (80-94); MONOCYTES # (AUTO) 0.3 K/uL (0.8-1.0); MONOCYTES % (AUTO) 2.2 % (1.7-9.3); NEUTROPHILS # (AUTO) 13.4 K/uL (1.8-7.7); NEUTROPHILS % (AUTO) 96.9 % (42.2-75.2); PLATELET COUNT (AUTO) 215 K/uL (140-450); RED BLOOD CELL COUNT(AUTO) 3.05 MIL/uL (4.20-6.10); RED CELL DISTRIBUTION WIDTH 14.1 % (11.6-13.7); WHITE BLOOD COUNT (AUTO) 13.8 K/uL (4.8-10.8)
[2019-06-13] MEDS: ALBUTEROL SULFATE/IPRATROPIU 3 ML SOL IH SCH ×3 (06:34→18:43)
--- NOTE | 2019-06-13 06:34 | NUR ---
REC'D PT ON CARESCAPE VENT SETTINGS AC 18 VT 350 PEEP 5 FIO2 35% ALARMS ON AND AUDIBLE AND AMBU BAG AT SIDE OF VENT AND VENT IS PLUGGED INTO RED OUTLET, NO HHN GIVEN PT SLEEPING WITH NO SIGNS OF DISTRESS NOTED AT THIS TIME, B\S ARE COARSE BILATERALLY AND SXN PT SMALL AMT OF WHITE SECRETIONS, PT IS ORALLY INTUBATED WITH 7.5 ET TUBE SECURED WITH ANCHOR FAST AT 23 CM MIDLINE AND PT IS SLEEPING
[2019-06-13 06:47] LABS: ANION GAP 9.1 (8-16); CARBON DIOXIDE 32.6 mmol/L (21-32); CREATININE 1.7 mg/dL (0.7-1.3); POTASSIUM 4.7 mmol/L (3.5-5.1)
--- NOTE | 2019-06-13 06:52 | NUR ---
BUN 79 GLUCOSE 434
[2019-06-13] MEDS: BLOOD GLUCOSE MONITORING 1 DEV DEV FS SCH ×4 (06:59→21:40)
--- NOTE | 2019-06-13 07:17 | NUR ---
RECEIVED BEDSIDE REPORT FROM MATEUSZ CAT SWAMPER RN, FOR CONTINUITY OF CARE. PATIENT IS SEDATED WITH VERSED AND FENTANYL, RASS -1. PATIENT IS WARM, DRY, AFEBRILE, SKIN INTACT. PATIENT IS ETT TO VENT, BREATHING EVEN AND UNLABORED. HE IS SR ON MONITOR, FLACC 0. OGT IN PLACE. MOON CATHETER IN PLACE. HOB IS 35 DEGREES, SIDE RAILS UP 3X, BED LOCKED IN LOW POSITION. NO SIGNS OF DISTRESS NOTED. WILL CONTINUE TO MONITOR
--- NOTE | 2019-06-13 07:22 | NUR ---
CALLED PATIENT TO NOTIFY OF CRITICAL 0722 AND 0728 NO ANSWER. ENDORSED TO DAY SHIFT. PER INSULIN SCALE, IF OVER 401 CALL MD FIRST.
--- NOTE | 2019-06-13 08:11 | NUR ---
DR. BURR AND RESIDENT PHYSICIANS AT BEDSIDE, UPDATED ON PATIENT'S CONDITION. DR. TIDWELL MADE AWARE OF BLOOD GLUCOSE OF 437, STATES TO GIVE HUMALOG 12 UNITS.
[2019-06-13] MEDS: PANTOPRAZOLE 40 MG INJ VIAL IVP SCH (08:23)
[2019-06-13] MEDS: FUROSEMIDE 40 MG/4 ML VIAL IVP SCH (08:24)
[2019-06-13] MEDS: ATORVASTATIN 20 MG TAB PO SCH (08:24)
[2019-06-13] MEDS: DOCUSATE 100 MG/10 ML UDC GT SCH ×2 (08:25→21:00)
[2019-06-13] MEDS: ASPIRIN 81 MG TAB.CHEW PO SCH (08:25)
[2019-06-13] MEDS: INSULIN LISPRO SLIDING SCALE 100 UNITS/ML VIAL SUBQ PRN ×4 (08:40→22:16)
--- NOTE | 2019-06-13 08:52 | NUR ---
DR. COLON IN TO SEE PATIENT, UPDATED ON PATIENT'S CONDITION. WILL FOLLOW UP ON ANY ORDERS
--- NOTE | 2019-06-13 09:20 | NUR ---
RT AT BEDSIDE, CHANGED PATIENT BACK TO AC MODE ON VENTILATOR DUE TO PATIENT BEING TACHYPNEIC
--- NOTE | 2019-06-13 09:22 | NUR ---
pt failed cpap trail on for 30minutes and rr 34 placed pt back on ac mode and evelin hall notified
--- NOTE | 2019-06-13 11:46 | NUR ---
DR. HUITRON IS HERE TO SEE PATIENT, UPDATED ON PATIENT'S CONDITION. SPOKE WITH PATIENT'S DAUGHTER REGARDING TRACHEOSTOMY, PLAN IS TO MEET WITH PATIENT'S FAMILY TOMORROW IF THEY ARE ABLE TO MAKE IT.
--- NOTE | 2019-06-13 13:27 | NUR ---
DR. SHAFER IS HERE TO SEE PATIENT, STATES OK TO Stefan/Vance MOON, HOWEVER MAKE SURE PATIENT USES URINAL. Addendum: 06/13/19 at 1327 by Huey Sahu RN WRONG PATIENT
[2019-06-13] MEDS: ACETAMINOPHEN 325 MG TAB PO PRN (14:56)
--- NOTE | 2019-06-13 16:33 | NUR ---
PATIENT HAD TEMP OF 100.4, ADMINISTERED TYLENOL PO.
--- NOTE | 2019-06-13 18:55 | NUR ---
Received pt on vent support at documented settings, suctioned scant amounts of thin clear white secretions, hhn tx given, tolerated well, no resp distress or SOB noted at this time, found 7.5 ETT secured at 24 cm at the lip line, alarms set and audible, ambu bag at bedside, vent plugged into red outlet, vent wiped down, cont pulse ox on, will cont to monitor.
--- NOTE | 2019-06-13 19:10 | NUR ---
RECEIVED REPORT FROM DAYSHIFT NURSE AT PATIENTS BEDSIDE, NO DISTRESS NOTED AT THIS TIME, FLACC 0, WILL FOLLOWUP CARE.
[2019-06-13] MEDS: fentaNYL 1 MG in NACL 0.9% 80 ML IV PRN (19:19)
[2019-06-13] MEDS: LEVOFLOXACIN 500 MG/D5W PREMIX 100 ML IV SCH (19:33)
--- NOTE | 2019-06-13 19:45 | NUR ---
RECEIVED PATIENT ON SEDATION WITH RASS -1, FENTANYL 34.5 MCG/HR, AND VERSED 1MG/HR. WITH RASS -1 AND DRY WEIGHT 69 KG. PATIENT OPENS EYES TO VOICE, ABLE TO MAKE EYE CONTACT. ETT TO VENT, ACVC 18 FI02 35%, TV 350 PEEP 5. S1S2, ST ON MONITOR HEART RATE 103BPM. SKIN IS WARM AND DRY, AXILLARY TEMPERATURE 98.6. RIGHT WRIST AND RIGHT FOREARM PERIPHERAL IV'S IN PLACE, BOTH 20G. FLUSHED AND PATENT, NO SYMPTOMS. OGT CONNECTED TO TUBE FEEDING-NEPRO @ 35ML/HR. PLACEMENT CONFIRMED BY AUSCULTATION/AIR CHECK AND ASPIRATION, RESIDUALS <5ML. ABDOMEN SOFT AND NONTENDER, RECTAL TUBE IN PLACE WITH BROWN LOOSE STOOLS NOTED. MOON CATHETER IN PLACE. YELLOW URINE NOTED WITH SOME SEDIMENTS. SAFETY CHECKS IN PLACE, BED IN LOWEST POSITION, HOB 30 DEGREES, SIDERAILS UP. WILL CONTINUE TO MONITOR
--- NOTE | 2019-06-13 20:00 | NUR ---
FAMILY AT BEDSIDE
--- NOTE | 2019-06-13 20:55 | NUR ---
IN TO SEE PATIENT AND GET UPDATES, NO NEW ORDERS AT THIS TIME
--- NOTE | 2019-06-13 21:10 | NUR ---
VAP ORAL CARE PROVIDED, PATIENT TURNED AND REPOSITIONED. SKIN INTACT
[2019-06-13] MEDS: INSULIN LANTUS 100 UNITS/ML 10 ML VIAL SUBQ SCH (21:50)
--- NOTE | 2019-06-13 23:28 | NUR ---
HIGH PEAK VENT ALARMING, PATIENT SUCTIONED ORALLY AND IN ETT. RASS -1, NO SIGNS OF DISTRESS
[2019-06-14] VITALS (106 sets, daily range): BP systolic 88–160; BP diastolic 48–95
--- NOTE | 2019-06-14 00:35 | NUR ---
VAP ORAL CARE PROVIDED, TURNED AND REPOSITIONED, GTUBE FEEDING IN PLACE-35ML/HR. CHECKED RESIDUALS, <10ML. ETT TO VENT, VERSED AND FENTANYL INFUSING. FLACC 0
[2019-06-14] MEDS: methylPREDNISolone SS 125 MG/2 ML VIAL IVP SCH ×2 (01:14→08:56)
--- NOTE | 2019-06-14 02:40 | NUR ---
SKIN IS WARM TO TOUCH, HEART RATE ELEVATED IN 110'S, TEMPERATURE BORDERLINE IN 99-99.7-AXILLARY. COOLING MEASURES STARTED. WILL CONTINUE TO MONITOR
--- NOTE | 2019-06-14 04:00 | NUR ---
TEMPERATURE 99.0 AXILLARY. COOLING MEASURES STILL IN PLACE, HEART RATE STILL ELEVATED BUT GOING DOWN TO 105-109. PROVIDED COLD SPONGE BATH, SKIN CARE, MOON CATHETER CARE AND VAP ORAL CARE. PATIENT TOLERATED FAIRLY. SKIN INTACT, OGT TO FEEDING, NEPRO 35ML. NO RESIDUALS. RIGHT WRIST AND RIGHT FOREARM PERIPHERAL IV'S, INTACT, FLUSHED AND PATENT. RIGHT FOREARM INFUSING FENTANLY 34.5 MCG, AND VERSED AT 1MG/HR. RIGHT WRIST IS SALINE LOCKED. MOON CATHER IN PLACE, YELLOW HAZY URINE NOTED. RECTAL TUBE IN PLACE, SOFT BROWN LOOSE STOOLS. ETT TO VENT, FI02 35% TV 350 RATE 18 PEEP 5. PATIENT IN STABLE CONDITION FLACC 0. RASS -1.
[2019-06-14] MEDS: CLINDAMYCIN 600 MG in DEXTROSE 5% 50 ML IV SCH ×2 (05:03→22:20)
[2019-06-14] MEDS: ALBUTEROL SULFATE/IPRATROPIU 3 ML SOL IH SCH ×3 (06:16→19:34)
--- NOTE | 2019-06-14 06:16 | NUR ---
REC'D PT ON CARESCAPE VENT SETTINGS AC 18 VT 350 PEEP 5 FIO2 35% ALARMS ON AND AUDIBLE AND AMBU BAG AT SIDE OF VENT AND VENT IS PLUGGED INTO RED OUTLET, I\L TX GIVEN WITH DUONEB 3ML WITH NO ADVERSE REACTION POST TX, B\S ARE COARSE BILATERALLY, SXN PT MODERATED AMT OF CLEAR COLOR SECRETIONS, PT IS ORALLY INTUBATED WITH 7.5 ETUBE SECURED WITH ANCHOR FAST AT 24CM. PT IS RESTING
[2019-06-14 06:19] LABS: HEMOGLOBIN 9.6 g/dL (12.0-18.0); MEAN CORPUSCULAR HEMOGLOBIN 30 pg (27-31); MEAN CORPUSCULAR HGB CONC 32 g/dL (33-37); MEAN CORPUSCULAR VOLUME 94.1 fL (80-94); PLATELET COUNT (AUTO) 242 K/uL (140-450); RED BLOOD CELL COUNT(AUTO) 3.19 MIL/uL (4.20-6.10); WHITE BLOOD COUNT (AUTO) 14.4 K/uL (4.8-10.8)
[2019-06-14 06:23] LABS: ANION GAP 7.2 (8-16); CARBON DIOXIDE 35.4 mmol/L (21-32); CREATININE 1.5 mg/dL (0.7-1.3); POTASSIUM 4.6 mmol/L (3.5-5.1)
--- NOTE | 2019-06-14 06:30 | NUR ---
CRITICAL LAB BUN-[id number], SAME DAY BEFORE, WILL ENDORSE TO
[2019-06-14 06:40] LABS: MAGNESIUM 2.7 mg/dL (1.8-2.4); PHOSPHORUS 3.4 mg/dL (2.5-4.9)
[2019-06-14] MEDS: BLOOD GLUCOSE MONITORING 1 DEV DEV FS SCH ×4 (06:57→20:33)
[2019-06-14] MEDS: NACL 0.45% 500 ML IV SCH (07:05)
[2019-06-14] MEDS: INSULIN LISPRO SLIDING SCALE 100 UNITS/ML VIAL SUBQ PRN ×4 (07:07→20:45)
--- NOTE | 2019-06-14 07:30 | NUR ---
RECEIVED BEDSIDE REPORT FROM CLASSIFIER RN. PT IS SEDATED, RASS -1. TEMP 97.9. FLACC 0. NSR ON MONITOR. S1 S2 HEARD. PULSES PALPABLE TO ALL EXTREMITIES. CAP REFILL < 3 SEC. PT IS ETT TO VENT W/ SETTINGS: A/C VC FIO2 35%, VT 350, RR 18, PEEP 5. LUNGS SOUND CLEAR BILATERALLY, DIMINISHED LOWER LOBES. BREATHING EVEN AND UNLABORED. OGT IN PLACE, ON TUBE FEEDING NEPRO AT 35 ML/HR WITH WATER FLUSH 100 ML Q6H, NO RESIDUALS AT THIS TIME. OGT PLACEMENT CONFIRMED. ABDOMEN SOFT, NONDISTENDED, W/ ACTIVE BOWEL SOUNDS. PERIPHERAL IVS TO RIGHT FOREARM G20 AND RIGHT WRIST G20 PATENT AND INTACT. PT IS ON FENTANYL DRIP AT 34.5 MCG/HR (0.5 MCG/KG/HR), VERSED DRIP AT 1 MG/HR, AND IVF 1/2 NS AT 20 ML/HR. MOON CATH IN PLACE DRAINING YELLOW URINE TO GRAVITY. HOB 30 DEGREES, BED IN LOWEST POSITION LOCKED, CALL LIGHT WITHIN REACH. NO SIGNS OF DISTRESS NOTED AT THIS TIME. WILL CONTINUE TO MONITOR.
--- NOTE | 2019-06-14 08:20 | NUR ---
DR. BURR AND RESIDENT GROUP IN TO SEE PT. WILL FOLLOW UP ON ORDERS.
[2019-06-14 08:32] LABS: LYMPHOCYTES % (MANUAL) 2 % (20-46); MONOCYTES % (MANUAL) 2 % (5-12)
[2019-06-14] MEDS: DOCUSATE 100 MG/10 ML UDC GT SCH ×2 (08:55→20:34)
--- NOTE | 2019-06-14 08:55 | NUR ---
PT SEEN AND EXAMINED BY DR. COLON. NO NEW ORDER AT THIS TIME.
[2019-06-14] MEDS: ATORVASTATIN 20 MG TAB PO SCH (08:56)
[2019-06-14] MEDS: ASPIRIN 81 MG TAB.CHEW PO SCH (08:56)
[2019-06-14] MEDS: PANTOPRAZOLE 40 MG INJ VIAL IVP SCH (08:56)
[2019-06-14] MEDS: FUROSEMIDE 40 MG/4 ML VIAL IVP SCH (08:56)
[2019-06-14] MEDS ORDERED: VANCOMYCIN 1,000 MG in DEXTROSE 5% 250 ML IV SCH (09:00)
--- NOTE | 2019-06-14 09:00 | NUR ---
SEDATION OFF FOR SBT.
--- NOTE | 2019-06-14 09:05 | NUR ---
MEDICATIONS ADMINISTERED ORDERED. PT TOLERATED WELL.
--- NOTE | 2019-06-14 09:20 | NUR ---
CHEST X-RAY AT BEDSIDE. VSS. NO SIGNS OF DISTRESS NOTED.
[2019-06-14] MEDS ORDERED: FUROSEMIDE 40 MG/4 ML VIAL IVP SCH (09:30)
--- NOTE | 2019-06-14 09:50 | NUR ---
DR. COLON MADE AWARE THAT PT JUST HAD 40 MG LASIX THIS MORNING AND CLARIFIED ORDER OF ANOTHER ONE TIME DOSE LASIX. NO NEED TO GIVE ANOTHER [address] COLON. PHARMACIST MADE AWARE.
--- NOTE | 2019-06-14 10:00 | NUR ---
DR. HUITRON IN TO SEE AND EXAMINE PT. WILL FOLLOW UP ON ORDERS.
[2019-06-14] MEDS: MIDAZOLAM MDV 50 MG in NACL 0.9% 40 ML IV PRN (10:25)
[2019-06-14] MEDS ORDERED: FUROSEMIDE 100 MG in DEXTROSE 5% 100 ML IV SCH (11:00)
--- NOTE | 2019-06-14 11:13 | NUR ---
DR. HUITRON AND DR. VENCES IN THE UNIT HAVING FAMILY MEETING AT BEDSIDE USING CL[employer] BED WORKER PHONE.
--- NOTE | 2019-06-14 12:05 | NUR ---
US CHEST AT BEDSIDE. NO SIGNS OF ACUTE DISTRESS NOTED.
[2019-06-14] MEDS: FUROSEMIDE 100 MG in DEXTROSE 5% 100 ML IV SCH ×2 (13:30→23:20)
--- NOTE | 2019-06-14 14:00 | NUR ---
PT HAD A FEW RUNS OF V-TACH. ALSO DARK COLORED STOOL NOTED. DR. TIDWELL MADE AWARE. WILL FOLLOW UP ON ORDERS. Addendum: 06/14/19 at 1523 by Arabella Roper RN DR. TIDWELL ALSO AWARE OF BLOODY SECRETIONS FROM ETT DEEP SUCTIONING.
--- NOTE | 2019-06-14 16:05 | NUR ---
VAP ORAL CARE GIVEN. TURNED AND REPOSITIONED FOR COMFORT AND OFF LOAD PRESSURE AREAS. VSS. NO S/SX OF DISTRESS NOTED AT THIS TIME.
--- NOTE | 2019-06-14 17:40 | NUR ---
DR. TIDWELL IN THE UNIT TO SEE PT. MADE AWARE OF PT'S DECREASED BLOOD PRESSURE 98/61 (MAP 75). NO NEW ORDER AT THIS TIME. PER DR. TIDWELL, OK IF MAP KEEPS AT 60-65 RANGE. WILL CONTINUE TO MONITOR.
--- NOTE | 2019-06-14 17:45 | NUR ---
TELEPHONE CONSENT RECEIVED FROM DAUGHTER, ANSON FOR PICC LINE INSERTION.
--- NOTE | 2019-06-14 17:50 | NUR ---
CALLED AND LEFT MESSAGE FOR PICC LINE RN REGARDING PICC LINE INSERTION ORDER.
--- NOTE | 2019-06-14 18:06 | NUR ---
DR. NEWBERRY IN TO SEE AND EXAMINE PT. WILL FOLLOW UP ON ORDERS.
--- NOTE | 2019-06-14 18:30 | NUR ---
PT SEEN AND EXAMINE BY DR. ORR. WILL FOLLOW UP ON ORDERS.
--- NOTE | 2019-06-14 19:25 | NUR ---
RECEIVED REPORT FROM AM NURSE. PT AT BED SEDATED RASS -1, PT RESPONDS TO NAME, NODS HEAD, FOLLOWS SIMPLE COMMANDS, PERRL 3MM, BRISK, HEART RATE REGULAR S1S2 PRESENT, CAP REFILL <3S, PULSES 2+ BILATERAL UPPER AND LOWER EXTREMITIES, LUNG SOUNDS CLEAR ON BILATERAL UPPER AND MIDDLE LOBES, DIMINISHED AT BASES, PT ETT TO VENT SIZE 7.5 TAPED AT 22 TEETH, VENT SETTINGS AC VC 40% FI02, TV 350, RR 18, PEEP 5, ABDOMEN SOFT, ROUND, NONDISTENDED, NONTENDER, PT HAS OG TUBE IN PLACE, NEPHRO RUNNING AT 35 ML/HR, WITH WATER FLUSH AT 100 ML/HR, Q6H, NO RESIDUAL, FC IN PLACE, DRAINING CLEAR, YELLOW URINE WITH SEDIMENTATION. PT HAS PERIPHERAL IV AT RIGHT FOREARM 20 GAUGE AND RIGHT WRIST AT 20 GAUGE, RUNNING 1/2 NS AT 20 ML/HR, VERSED AT 1 MG/HR, LASIX AT 10 MG/HR AND FENTANYL AT 34.5 MCG/HR. HOB 30 DEGREES, SIDE RAILS UP X2, BED AT LOWEST POSITION. Addendum: 06/14/19 at 2348 by George Vargas RN SKIN INTACT, WARM, DRY, DRY WEIGHT 69 KG
--- NOTE | 2019-06-14 19:27 | NUR ---
REPORT GIVEN TO STREET SWEEPER RN FOR CONTINUITY OF CARE. PT IS IN STABLE CONDITION.
[2019-06-14] MEDS ORDERED: VANCOMYCIN PER PHARMACY MC PRN (19:30)
--- NOTE | 2019-06-14 19:35 | NUR ---
REC'D PT ON CARESCAPE VENT SETTINGS AC 18 VT 350 PEEP 5 FIO2 35% ALARMS ON AND AUDIBLE AND AMBU BAG AT SIDE OF VENT AND VENT IS PLUGGED INTO RED OUTLET,PT TOLERATING SETTINGS WELL, NO DISTRESS NOTED AT THIS TIME,, PT IS ORALLY INTUBATED WITH 7.5 ETUBE SECURED WITH ANCHOR FAST AT 24CM. SUCTIONED A SCANT AMOUNT OF SECRETIONS. PT IS RESTING. WILL CONTINUE TO MONITOR
[2019-06-14] MEDS: methylPREDNISolone SS 40 MG/ML VIAL IVP SCH (20:35)
[2019-06-14] MEDS: INSULIN LANTUS 100 UNITS/ML 10 ML VIAL SUBQ SCH (20:45)
--- NOTE | 2019-06-14 21:05 | NUR ---
FAMILY AT BEDSIDE. UPDATED FAMILY ABOUT PT CONDITION.
[2019-06-14] MEDS: HYDROcodone/APAP 7.5/325 MG 1 TAB PO PRN (21:43)
[2019-06-14] MEDS ORDERED: CLINDAMYCIN 600 MG/4 ML VIAL ONE (21:56)
[2019-06-14] MEDS: fentaNYL 1 MG in NACL 0.9% 80 ML IV PRN (22:08)
--- NOTE | 2019-06-14 22:10 | NUR ---
DR BRIGGS AT BEDSIDE, UPDATED MD ABOUT PT CONDITION, NO NEW ORDERS AT THIS TIME.
[2019-06-15] VITALS (100 sets, daily range): BP systolic 82–171; BP diastolic 34–89
--- NOTE | 2019-06-15 | NUR ---
PT AT BED EYES CLOSED, BREATHING REGULARLY ETT TO VENT, HOB 30 DEGREES, SIDE RAILS UP X2, BED AT LOWEST POSITION.
--- NOTE | 2019-06-15 02:17 | NUR ---
REPOSITIONED PT, PT AT RASS -1, AWAKE. WILL CONTINUE TO MONITOR.
--- NOTE | 2019-06-15 04:20 | NUR ---
VAP ORAL CARE PERFORMED, SUCTIONED, PINK TINGED, SCANT, WHITE MUCOUS, PT TOLERATED PROCEDURE WELL.
[2019-06-15] MEDS: CLINDAMYCIN 600 MG in DEXTROSE 5% 50 ML IV SCH ×3 (04:24→21:25)
[2019-06-15 06:19] LABS: HEMATOCRIT 29.1 % (36-52); HEMOGLOBIN 9.4 g/dL (12.0-18.0); MEAN CORPUSCULAR HEMOGLOBIN 30 pg (27-31); MEAN CORPUSCULAR HGB CONC 32 g/dL (33-37); PLATELET COUNT (AUTO) 249 K/uL (140-450); RED BLOOD CELL COUNT(AUTO) 3.13 MIL/uL (4.20-6.10); RED CELL DISTRIBUTION WIDTH 14.1 % (11.6-13.7); WHITE BLOOD COUNT (AUTO) 17.9 K/uL (4.8-10.8)
--- NOTE | 2019-06-15 06:36 | NUR ---
PT AT BED EYES CLOSED, BREATHING REGULARLY ETT TO VENT, HOB 30 DEGREES, SIDE RAILS UP X2, BED AT LOWEST POSITION.
[2019-06-15 06:53] LABS: ANION GAP 6.6 (8-16); CARBON DIOXIDE 37.4 mmol/L (21-32); CREATININE 1.4 mg/dL (0.7-1.3)
[2019-06-15] MEDS: NACL 0.45% 500 ML IV SCH (07:09)
--- NOTE | 2019-06-15 07:10 | NUR ---
RECEIVED PT REPORT FROM WEIGHT AND TEST BAR CLERK RN [place]. PT IN BED, RASS -1. ON VERSED AND FENTANYL DRIP. ETT TO VENT, SIZE 7.5, 23CM AT TEETH, AC/VC, FIO2 35%, TV 350 ML, RR 18, PEEP 5. PERRL. RR 26, RESPIRATION EVEN AND UNLABORED. LUNG SOUNDS CLEAR, DIMINISHED. HEART RATE REGULAR S1S2 PRESENT, CAP REFILL <3S, PULSES 2+ BILATERAL UPPER AND LOWER EXTREMITIES. ABDOMEN, SOFT, NONTENDER. OGT RUNNING, NEPRO AT 35 ML/HR, WITH WATER FLUSH 100 ML/HR Q6H. MOON CATH IN PLACE DRAINING YELLOW URINE WITH SEDIMENTS. SKIN WARM AND DRY. IV LINE TO R FA AND WRIST 20G, RUNNING 1/2NS AT 20 ML/HR, VERSED 1MG/HR, FENTANYL 34.5 MCG/KG/HR. DRY WEIGHT 69KG. RECTAL TUBE IN PLACE, DRAINING BROWN MUSHY STOOL. RECTAL TUBE IS LEAKING, BALLOON NOT FULLY INFLATED. WITHDRAW WATER OF 25ML AND REINFLATED BALLOON WITH TOTAL OF 40ML WATER. HOB 30 DEGREES, SIDE RAILS UP X2, BED AT LOWEST POSITION.
[2019-06-15 07:26] LABS: MAGNESIUM 2.3 mg/dL (1.8-2.4); PHOSPHORUS 2.8 mg/dL (2.5-4.9)
[2019-06-15] MEDS: ALBUTEROL SULFATE/IPRATROPIU 3 ML SOL IH SCH ×3 (07:41→20:04)
[2019-06-15] MEDS: BLOOD GLUCOSE MONITORING 1 DEV DEV FS SCH ×4 (07:55→21:00)
[2019-06-15] MEDS: INSULIN LISPRO SLIDING SCALE 100 UNITS/ML VIAL SUBQ PRN ×3 (07:55→17:31)
[2019-06-15] MEDS: FUROSEMIDE 100 MG in DEXTROSE 5% 100 ML IV SCH ×3 (08:25→21:54)
--- NOTE | 2019-06-15 08:25 | NUR ---
DR COLON HAS SEEN PT. ADJUST H2O FLUSH TO 200ML Q4H PER DR COLON'S ORDER.
[2019-06-15] MEDS: DOCUSATE 100 MG/10 ML UDC GT SCH ×2 (09:14→21:00)
[2019-06-15] MEDS: ASPIRIN 81 MG TAB.CHEW PO SCH (09:15)
[2019-06-15] MEDS: PANTOPRAZOLE 40 MG INJ VIAL IVP SCH (09:15)
[2019-06-15] MEDS: methylPREDNISolone SS 40 MG/ML VIAL IVP SCH ×2 (09:15→21:25)
[2019-06-15] MEDS: ATORVASTATIN 20 MG TAB PO SCH (09:15)
--- NOTE | 2019-06-15 09:15 | NUR ---
G TUBE RESIDUAL 0ML, AUSCULTATED FOR POSITIVE PLACEMENT. SCHEDULED MEDS HAS BEEN GIVEN VIA G TUBE. PT TOLERATED WELL.
[2019-06-15] MEDS: ACETAMINOPHEN 325 MG TAB PO PRN (09:50)
[2019-06-15 09:52] LABS: LYMPHOCYTES % (MANUAL) 3 % (20-46); MONOCYTES % (MANUAL) 7 % (5-12)
--- NOTE | 2019-06-15 10:10 | NUR ---
DR BRASWELL SEEN PT. MADE DR BRASWELL AWARE PT STILL HAS FEVER, 101.3F. DR BRASWELL ORDERED URINE SPECIMEN, C DIFF AND BLOOD CULTURE. ADJUST LANTUS TO 15 UNITS. Addendum: 06/15/19 at 1417 by Bennie Stoddard RN URINE SPECIMEN OBTAINED FROM [facility] [place] AND STOOL SPECIMEN OBTAINED FROM RECTAL TUBE. SENT TO LAB.
--- NOTE | 2019-06-15 10:24 | NUR ---
ASLEEP RESTING COMFORTABLY NO EVIDENCE OF PULMONARY DISTRESS NOTED EQUAL CHEST RISE BREATH SOUNDS CLEAR BILATERAL WITH GOOD AERATION THROUGHOUT BILATERAL LUNG SORIA AIRWAY PATENT PLACED ON CPAP/SBT WEANING TRIALS PATIENT UNABLE TO FULLY PARTICIPANT IN WEANING PARAMETERS AKILAH/RN NOTIFIED
[2019-06-15] MEDS: MIDAZOLAM MDV 50 MG in NACL 0.9% 40 ML IV PRN (10:41)
--- NOTE | 2019-06-15 13:24 | NUR ---
AWAKE SLIGHTLY AGITATED WITH ASCENDING RESPIRATIONS POST HHN THERAPY CHANGE MODE TO AC TO REST PATIENT AT THIS TIME COMMERCIAL INTELLIGENCE MANAGER TO ATTEMPT CPAPSBT WEANING TRIALS AT A LATER TIME TOLERATED WEANING X 3 HOURS GOOD CHEST RISE ENDOTRACHEAL SUCTION FOR LARGE THICK REDDISH/BROWN SECRETIONS AIRWAY PATENT AKILAH/ELEANOR RN'S AWARE
--- NOTE | 2019-06-15 14:30 | NUR ---
PICC LINE HAS BEEN INSERTED ON THE RIGHT UA BY PICC LINE NURSE. STERIL TECHNIQUES FOLLOWED.
--- NOTE | 2019-06-15 14:37 | NUR ---
06/15/19 RD FOLLOW UP COMPLETED PLEASE REFER TO NUTRITION ASSESSMENT UNDER CARE ACTIVITY FOR ESTIMATED NUTRITIONAL NEEDS. 1. CONTINUE NEPRO W/CARBSTEADY AT 35 ML/HR -THIS WILL PROVIDE 1512 KCAL, 68 GM OF PROTEIN WHICH PROVIDES 100% OF ESTIMATED NUTRIENT NEEDS 2. CONTINUE FREE WATER FLUSH OF 200 ML 3. CONSIDER G-TUBE PLACEMENT IF PT WILL BE INTUBATED SEISMOGRAPH HELPER 4. RD TO FOLLOW-UP 2-3 DAYS, HIGH RISK DANIEL ROBERTS, RD
--- NOTE | 2019-06-15 15:20 | NUR ---
RN'S AT BEDSIDE FOR PHYSICAL HYGIENE AND REPOSITION CHEMICAL OPERATOR TO ASSESS PATIEMT Addendum: 06/15/19 at 1523 by Basilio Medina RT NO SOB NOTED GOOD CHEST RISE CHEMICAL OPERATOR TO ASSESS FOR CONTINUED WEANING AT A LATER TIME
--- NOTE | 2019-06-15 15:40 | NUR ---
PT TOLERATED SBT CPAP TRIAL FOR [address] TIDWELL AWARE. BED BATH GIVEN. PT TOLERATED WELL.
--- NOTE | 2019-06-15 16:16 | NUR ---
PLACED BACK ON CPAP/SBT WEANING TRIALS NOTED GOOD CHEST RISE DEEP TRACHEAL SUCTION FOR SMALL THICK SCATTERED REDDISH/BROWN SECRETIONS AIRWAY PATENT AKILAH/RN NOTIFIED
--- NOTE | 2019-06-15 18:04 | NUR ---
STABLE TOLERATING CPAP/SBT WEANING TRIAL WELL WITHOUT SOB NOTED GOOD CHEST RISE
[2019-06-15] MEDS: LEVOFLOXACIN 500 MG/D5W PREMIX 100 ML IV SCH (19:07)
--- NOTE | 2019-06-15 19:15 | NUR ---
RECEIVED PT FROM AM NURSE. PT AT BED SEDATED RASS -1, PERRL 3MM, BRISK, PT RESPONDS TO NAME, FOLLOWS SIMPLE COMMANDS, HEART RATE REGULAR S1S2 PRESENT, CAP REFILL <3S, PULSES 2+ BILATERAL UPPER AND LOWER EXTREMITIES, PT ETT TO VENT, SIZE 7.5 TAPED 22 AT TEETH, PT ON SBT MODE. ABDOMEN SOFT, ROUND, NONDISTENDED, NONTENDER, FECAL TUBE IN PLACE DRAINING SOFT, BROWN, STOOL, BLADDER SOFT, ROUND, NONDISTENDED, FC IN PLACE, DRAINING CLEAR YELLOW URINE, PT HAS GENERALIZED WEAKNESS, SKIN INTACT, PT HAS RIGHT WRIST 20 GAUGE, RIGHT UPPER ARM PICC LINE RUNNING 1/2 NS AT 20 ML/HR, VERSED 1 MG/HR, LASIX 10 MG/HR, FENTANYL 34.5 MCG/HR. PT SKIN INTACT, WARM, DRY, NON ELASTIC. HOB 30 DEGREES, SIDE RAILS UP X2, BED AT LOWEST POSITION.
--- NOTE | 2019-06-15 20:00 | NUR ---
REC'D PT ON CARESCAPE VENT SETTINGS SBT 10/5 FIO2 30%. PT TOLERATING SBT WELL. ALARMS ON AND AUDIBLE AND AMBU BAG AT SIDE OF VENT AND VENT IS PLUGGED INTO RED OUTLET,PT TOLERATING SETTINGS WELL, NO DISTRESS NOTED AT THIS TIME,, PT IS ORALLY INTUBATED WITH 7.5 ETUBE SECURED WITH ANCHOR FAST AT 24CM. SUCTIONED A MODERATE AMOUNTS OF SECRETIONS. PT IS RESTING. WILL CONTINUE TO MONITOR
--- NOTE | 2019-06-15 21:15 | NUR ---
SPOKE WITH DR. ORR REGARDING BS OF 297 AND NPO STATUS AT MIDNIGHT. RECOMMENDED TO HOLD HUMALOG FOR NOW AND ADMINISTER LANTUS 15 UNITS ORDERED.
[2019-06-15] MEDS: HYDROcodone/APAP 7.5/325 MG 1 TAB PO PRN (21:26)
--- NOTE | 2019-06-15 21:45 | NUR ---
ADMINISTERED MEDICATION. PT FAMILY AT BEDSIDE. PT AT STABLE CONDITION AT THIS TIME. WILL CONTINUE TO MONITOR.
[2019-06-15] MEDS: INSULIN LANTUS 100 UNITS/ML 10 ML VIAL SUBQ SCH (21:47)
--- NOTE | 2019-06-15 22:26 | NUR ---
PLACED PT BACK ON VENT SETTINGS OF AC 18 VT 350 PEEP 5 FIO2 30% , TO ALLOW PT TO REST FROM SBT/CPAP TRIAL. PERFORMED ABG ON PT. PT TOLERATING SETTINGS WELL, NO DISTRESS NOTED AT THIS TIME. WILL CONTINUE TO MONITOR
[2019-06-16] VITALS (64 sets, daily range): BP systolic 110–173; BP diastolic 61–109
[2019-06-16] MEDS: fentaNYL 1 MG in NACL 0.9% 80 ML IV PRN (00:03)
--- NOTE | 2019-06-16 00:17 | NUR ---
PT AT BED EYES CLOSED, BREATHING REGULARLY ON TRACH TO VENT. PT AT STABLE CONDITION AT THIS TIME. WILL CONTINUE TO MONITOR.
--- NOTE | 2019-06-16 03:00 | NUR ---
PT AT BED EYES CLOSED, BREATHING REGULARLY ON TRACH TO VENT. PT AT STABLE CONDITION AT THIS TIME. WILL CONTINUE TO MONITOR.
[2019-06-16] MEDS ORDERED: PIPERACILLIN/TAZOBACTAM 3.375 GM VIAL IV ONE (03:52)
[2019-06-16] MEDS: PIPERACILLIN/TAZOBACTAM 3.375 GM in DEXTROSE 5% 50 ML IV SCH ×3 (04:26→21:48)
[2019-06-16 06:28] LABS: HEMATOCRIT 27.4 % (36-52); HEMOGLOBIN 8.9 g/dL (12.0-18.0); MEAN CORPUSCULAR HEMOGLOBIN 30 pg (27-31); MEAN CORPUSCULAR HGB CONC 33 g/dL (33-37); MEAN CORPUSCULAR VOLUME 92.2 fL (80-94); PLATELET COUNT (AUTO) 212 K/uL (140-450); RED BLOOD CELL COUNT(AUTO) 2.97 MIL/uL (4.20-6.10); RED CELL DISTRIBUTION WIDTH 13.9 % (11.6-13.7); WHITE BLOOD COUNT (AUTO) 11.6 K/uL (4.8-10.8)
[2019-06-16 06:49] LABS: ANION GAP 6.2 (8-16); CREATININE 1.3 mg/dL (0.7-1.3); POTASSIUM 3.6 mmol/L (3.5-5.1)
[2019-06-16 07:00] LABS: CARBON DIOXIDE 40.4 mmol/L (21-32)
[2019-06-16 07:01] LABS: MAGNESIUM 1.7 mg/dL (1.8-2.4); PHOSPHORUS 3.6 mg/dL (2.5-4.9)
--- NOTE | 2019-06-16 07:20 | NUR ---
RECEIVED REPORT FROM STUNNER ANIMAL RN. PT RESTING IN BED. ETT TO VENT AC VC 30 TV 350 [address] ON MONITOR. NO RESPIRATORY DISTRESS NOTED. PUPILS REACTIVE TO LIGHT. OG TUBE IN PLACE. POSITIVE PLACEMENT. RESIDUAL 0. ON FENTANYL DRIP AT 34.5 MCG/KG/HR AND VERSED AT 1 MG/HR. DRY WEIGHT 69 KG. RASS -1. PERIPHERAL LINES NOTED ON RIGHT WRIST AND RIGHT FOREARM 20G. PICC LINE ON SANDEEP. INTACT LINES. FLUSHED. ABDOMEN SOFT, ROUND AND NON-TENDER. ACTIVE BOWEL SOUND. F/C IN PLACE DRAINING CLEAR YELLOW URINE. RECTAL TUBE IN PLACE RODRIGUEZ LIQUIDY STOOL IN TUBE. DRY SCABS NOTED ON B/L LOWER EXTREMITIES. BED IN LOW POSITION, LOCKED. FLACC 0. WILL CONTINUE TO MONITOR.
--- NOTE | 2019-06-16 07:23 | NUR ---
SPOKE WITH DR. LYNN REGARDING PT HAVING A RUN OF V. TACH AND RESULT OF XRAY RECOMMENDATION OF ADVANCING OG TUBE 10 TO 15 CM.
[2019-06-16] MEDS: ALBUTEROL SULFATE/IPRATROPIU 3 ML SOL IH SCH ×3 (07:42→19:30)
[2019-06-16] MEDS: NACL 0.45% 500 ML IV SCH (08:02)
[2019-06-16] MEDS: BLOOD GLUCOSE MONITORING 1 DEV DEV FS SCH ×4 (08:06→21:00)
[2019-06-16] MEDS ORDERED: MAGNESIUM OXIDE 400 MG TAB GT SCH (08:16)
[2019-06-16] MEDS: DOCUSATE 100 MG/10 ML UDC GT SCH ×2 (08:19→21:00)
[2019-06-16] MEDS: ACETAMINOPHEN 325 MG TAB PO PRN ×2 (08:19→16:45)
[2019-06-16] MEDS: ASPIRIN 81 MG TAB.CHEW PO SCH (08:20)
[2019-06-16] MEDS: ATORVASTATIN 20 MG TAB PO SCH (08:20)
[2019-06-16] MEDS: LACTOBACILLUS RHAMNOSUS GG 1 EACH CAP PO SCH (08:20)
[2019-06-16] MEDS: methylPREDNISolone SS 40 MG/ML VIAL IVP SCH ×2 (08:23→21:48)
[2019-06-16] MEDS: PANTOPRAZOLE 40 MG INJ VIAL IVP SCH (08:23)
[2019-06-16] MEDS: VANCOMYCIN 1,000 MG in DEXTROSE 5% 250 ML IV SCH (08:25)
--- NOTE | 2019-06-16 11:00 | NUR ---
DR. DEL TORO INTO SEE PT. ORDERED TO DC JOSE GUSTAFSON. WILL CARRY OUT ORDER.
[2019-06-16 11:16] LABS: LYMPHOCYTES % (MANUAL) 2 % (20-46); MONOCYTES % (MANUAL) 5 % (5-12)
--- NOTE | 2019-06-16 11:37 | NUR ---
PT PLACED ON SBT, CPAP 5 PS 10 FIO2 30%. PT IS AWAKE AT THIS TIME. NURSE MADE AWARE. VENT ALARMS SET APPROPRIATELY WITH BACKUP MODE OF AC/VC SET. WILL CONTINUE TO MONITOR.
--- NOTE | 2019-06-16 11:55 | NUR ---
BS 282. DR. TIDWELL MADE AWARE. SAID TO GIVE 3 UNIT OF HUMALOG SUBQ. WILL CARRY OUT ORDER.
[2019-06-16] MEDS: INSULIN LISPRO SLIDING SCALE 100 UNITS/ML VIAL SUBQ PRN ×2 (12:18→17:01)
--- NOTE | 2019-06-16 12:25 | NUR ---
ORAL CARE PROVIDED. KEPT PT CLEAN AND DRY. IV SITES ARE INTACT. PT ON SBT. TOLERATING WELL. RR 25. ON CONTINUOUS OBSERVATION BY RN AND RT.
--- NOTE | 2019-06-16 12:32 | NUR ---
PT ON SBT/CPAP TRIAL STILL SLIGHTLY RESTLESS. VENT CHECK DOCUMENTED. WILL CONTINUE TO MONITOR.
--- NOTE | 2019-06-16 12:52 | NUR ---
DR. ALMANZA, THE CATTLE STICKER IN TO SEE PT. UPDATED PT STATUS AND FLUCTUATING BP. NO CHANGE IN ANY ORDER. CONTINUE SAME TREATMENT PER CATTLE STICKER.
--- NOTE | 2019-06-16 13:05 | NUR ---
STATES TO HAVE BIPAP PRN FOR SOB/RESPIRATORY DISTRESS.
--- NOTE | 2019-06-16 13:12 | NUR ---
EXTUBATED BY RT TRINA. SATURATED 100%. RR 24. NO DISTRESS NOTED. REMOVED NG-TUBE PER DR. HUITRON. ORDERED TO KEEP NPO EXCEPT MEDS FOR TODAY. WILL CARRY OUT THE ORDER. PLACED PT ON O2 VIA NC.
--- NOTE | 2019-06-16 13:12 | NUR ---
PT EXTUBATED PER . PT PLACED ON 3L NC SPO2 97%. PT NOT IN ANY DISTRESS AT THIS TIME. NURSE AWARE. WILL CONTINUE TO MONITOR.
[2019-06-16] MEDS: NACL 0.9% IV SCH ×2 (13:53→21:49)
[2019-06-16] MEDS: ACETAZOLAMIDE IV SCH ×2 (13:53→21:49)
--- NOTE | 2019-06-16 16:00 | NUR ---
REPOSITIONED. F/C CARE DONE. KEPT PT CLEAN AND DRY. PROVIDED CARE NEEDED. PT ABLE TO MAKE NEEDS KNOWN. NO DISTRESS NOTED.
[2019-06-16] MEDS: FLUCONAZOLE 200 MG/NS PREMIX 100 ML IV SCH (16:45)
--- NOTE | 2019-06-16 16:50 | NUR ---
PT NOTED WITH FEVER 101.6 DEGREE F. COOLING MEASURES IN PLACE. ADMINISTERED TYLENOL PER SCHEDULE. DR. TIDWELL MADE AWARE OF FEVER AND BS 263. ORDERED TO GIVE 4 UNIT HUMALOG SUBQ.
--- NOTE | 2019-06-16 19:15 | NUR ---
RECEIVED REPORT FROM AM NURSE. PT AT BED AWAKE, ALERT AND ORIENTED X2, COOPERATIVE, PERRLA 3MM, BRISK, HEART RATE REGULAR S1S2 PRESENT, CAP REFILL <3S, PULSES 2+ BILATERAL UPPER AND LOWER EXTREMITIES, PT BREATHING REGULARLY ON 02 NC AT 3L/MIN, LUNG SOUNDS CLEAR THROUGHOUT, DIMINISHED AT BASES, ABDOMEN, SOFT, ROUND, NONDISTENDED, NONTENDER, PT HAS FECAL TUBE IN PLACE, DRAINING SOFT, BROWN STOOL, PT BLADDER, SOFT, ROUND, NONDISTENDED, NONTENDER, FC IN PLACE, DRAINING CLEAR, YELLOW URINE WITH SEDIMENTATION, PT HAS GENERALIZED WEAKNESS, PT HAS RIGHT UPPER ARM PICC LINE RUNNING 1/2 NS AT 20 ML/HR, PT HAS RIGHT HAND PERIPHERAL IV 20 GAUGE, SALINE LOCK, PT HAS RIGHT FOREARM PERIPHERAL IV AT 20 GAUGE, SALINE LOCK. SKIN, WARM, DRY, NON INTACT, SKIN TEAR AT COCCYX, MEASURE 1X0.5 CM, OPTIFOAM DRESSING PLACED, HOB 30 DEGREES, SIDE RAILS UP X2, BED AT LOWEST POSITION.
--- NOTE | 2019-06-16 19:23 | NUR ---
REPORT GIVEN TO PROFESSOR/NURSE ANESTHETIST RN FOR CONTINUITY OF CARE. PT STABLE.
--- NOTE | 2019-06-16 19:50 | NUR ---
SPOKE WITH DR. ORR REGARDING BS OF 218, RECEIVED ORDERS TO HOLD HUMALOG AND PROCEED WITH LANTUS ORDERED AND TO GIVE DIAMOX AND LASIX 40 MG IVP ORDERED.
[2019-06-16] MEDS: FUROSEMIDE 40 MG/4 ML VIAL IVP SCH (20:20)
[2019-06-16] MEDS: INSULIN LANTUS 100 UNITS/ML 10 ML VIAL SUBQ SCH (20:22)
--- NOTE | 2019-06-16 21:30 | NUR ---
ADMINISTERED MEDICATIONS. PT FAMILY AT BEDSIDE. PT TOLERATED PROCEDURE WELL. VS AT STABLE CONDITION. WILL CONTINUE TO MONITOR.
[2019-06-16] MEDS: HYDROcodone/APAP 7.5/325 MG 1 TAB PO PRN (21:49)
[2019-06-17] VITALS (12 sets, daily range): BP systolic 102–131; BP diastolic 64–83
[2019-06-17] MEDS: PIPERACILLIN/TAZOBACTAM 3.375 GM in DEXTROSE 5% 50 ML IV SCH ×3 (04:20→21:59)
[2019-06-17] MEDS: NACL 0.9% IV SCH (04:21)
[2019-06-17] MEDS: ACETAZOLAMIDE IV SCH (04:21)
[2019-06-17 05:00] LABS: HEMATOCRIT 29.2 % (36-52); HEMOGLOBIN 9.5 g/dL (12.0-18.0); MEAN CORPUSCULAR HEMOGLOBIN 30 pg (27-31); MEAN CORPUSCULAR HGB CONC 33 g/dL (33-37); MEAN CORPUSCULAR VOLUME 93.3 fL (80-94); PLATELET COUNT (AUTO) 190 K/uL (140-450); RED BLOOD CELL COUNT(AUTO) 3.12 MIL/uL (4.20-6.10); RED CELL DISTRIBUTION WIDTH 14.4 % (11.6-13.7); WHITE BLOOD COUNT (AUTO) 9.7 K/uL (4.8-10.8)
[2019-06-17 05:22] LABS: LYMPHOCYTES % (MANUAL) 1 % (20-46); MONOCYTES % (MANUAL) 2 % (5-12)
--- NOTE | 2019-06-17 05:50 | NUR ---
PATIENT WILL BE SWITCHED FROM NASAL CANNULA TO OXYMIZER (6l) UNTIL SPO2 STAYS ABOVE 92 SPO2. PATIENT STABLE AND ALERT AT THIS TIME NO RESP DISTRESS Addendum: 06/17/19 at 0632 by Nenita Anna RT DISREGARD THE ABOVE NOTES DOES NOT APPLY TO PATIENT. PATIENT IS ON 3L NC NO RESP DISTRESS NO SHORTNESS OF BREATH.
[2019-06-17] MEDS: ALBUTEROL SULFATE/IPRATROPIU 3 ML SOL IH SCH ×3 (06:36→19:11)
--- NOTE | 2019-06-17 06:36 | NUR ---
no hhn given due to pt sleeping with no signs of distress noted at this
[2019-06-17] MEDS: NACL 0.45% 500 ML IV SCH (07:00)
[2019-06-17] MEDS: BLOOD GLUCOSE MONITORING 1 DEV DEV FS SCH ×4 (07:24→21:59)
--- NOTE | 2019-06-17 07:30 | NUR ---
RECEIVED BEDSIDE REPORT FROM CATTLE DIPPER RN. PT IS AWAKE, ALERT AND ORIENTED X3. BURUNDIAN SPEAKING. AFEBRILE. NO C/O PAIN. NORMAL SINUS RHYTHM ON MONITOR. S1 S2 HEARD. PULSES PALPABLE TO ALL EXTREMITIES. CAP REFILL < 3 SEC. PT IS ON O2 AT 3 LPM/NC. LUNGS SOUND CLEAR BILATERALLY. BREATHING EVEN AND UNLABORED. NO SOB NOTED. PICC LINE TO RIGHT UPPER ARM ASYMPTOMATIC, PATENT AND INTACT, RUNNING IVF 1/2 NS AT 20 ML/HR. PERIPHERAL IVS G20 TO RIGHT FOREARM AND RIGHT WRIST PATENT AND INTACT, SALINE LOCKED. ABDOMEN FLAT, SOFT, NONTENDER, BOWEL SOUNDS PRESENT X [address]ANTS[address] MOON CATH IN PLACE DRAINING LIGHT YELLOW URINE TO GRAVITY. RECTAL BAG IN PLACE, BROWN STOOL NOTED. HOB 30 DEGREES. BED IN LOWEST POSITION LOCKED. CALL LIGHT WITHIN REACH. NO SIGNS OF DISTRESS NOTED AT THIS TIME. WILL CONTINUE TO MONITOR.
--- NOTE | 2019-06-17 07:58 | NUR ---
DR. ROAJS AND RESIDENT GROUP IN TO SEE PT. DR. RAMOS MADE AWARE OF POTASSIUM LEVEL OF 2.9. WILL FOLLOW UP ON ORDERS.
[2019-06-17 08:00] LABS: ANION GAP 8.7 (8-16); CARBON DIOXIDE 36.2 mmol/L (21-32); CREATININE 1.5 mg/dL (0.7-1.3); POTASSIUM 2.9 mmol/L (3.5-5.1)
[2019-06-17 08:08] LABS: PHOSPHORUS 3.8 mg/dL (2.5-4.9)
[2019-06-17] MEDS: VANCOMYCIN 1,000 MG in DEXTROSE 5% 250 ML IV SCH (08:14)
[2019-06-17] MEDS: PANTOPRAZOLE 40 MG INJ VIAL IVP SCH (08:14)
[2019-06-17] MEDS: ASPIRIN 81 MG TAB.CHEW PO SCH (08:14)
[2019-06-17] MEDS: ATORVASTATIN 20 MG TAB PO SCH (08:14)
[2019-06-17] MEDS: LACTOBACILLUS RHAMNOSUS GG 1 EACH CAP PO SCH (08:14)
[2019-06-17] MEDS: FUROSEMIDE 40 MG/4 ML VIAL IVP SCH (08:14)
[2019-06-17] MEDS: methylPREDNISolone SS 40 MG/ML VIAL IVP SCH ×2 (08:15→21:59)
[2019-06-17] MEDS: DOCUSATE 100 MG/10 ML UDC GT SCH ×2 (08:29→21:58)
--- NOTE | 2019-06-17 09:32 | NUR ---
RECEIVED CALL FROM PT'S DAUGHTER, KARUNA. UPDATES GIVEN ON PT'S CONDITION.
--- NOTE | 2019-06-17 09:35 | NUR ---
Slabbing Machine Operator Note: I called and spoke with tre's Ryanne Forrester . Ryanne speaks Yakut. I asked her if she has been able to comprehend patient's plan of care and has been able to communicate with MD. Per Ryanne, she does not have any questions about patient's plan of care at this time. She is hopeful patient's medical condition will improve. She wants to wait for MD's recommendation relating to patient's discharge plan. Slabbing Machine Operator and/or Case Manger will follow up as needed.
[2019-06-17] MEDS ORDERED: POTASSIUM CHLORIDE 40 MEQ, LIDOCAINE MPF 1% 25 MG in NACL 0.9% 250 ML IV ONE (10:15)
[2019-06-17] MEDS ORDERED: POTASSIUM CHLORIDE 10 MEQ TABER PO SCH (10:30)
[2019-06-17] MEDS: KCL 20 MEQ/WATER INJ PREMIX 100 ML IV SCH ×3 (11:23→15:11)
[2019-06-17] MEDS: INSULIN LISPRO SLIDING SCALE 100 UNITS/ML VIAL SUBQ PRN ×2 (11:31→17:15)
--- NOTE | 2019-06-17 12:10 | NUR ---
DR. LOPEZ IN TO SEE AND EXAMINE PT. WILL FOLLOW UP ON ORDERS.
[2019-06-17 13:58] LABS: BILIRUBIN,URINE NEGATIVE (NEGATIVE); BLOOD, URINE NEGATIVE (NEGATIVE); COLOR,URINE YELLOW (YELLOW); LEUKOCYTE ESTERASE ,URINE 2+ (NEGATIVE); NITRITE, URINE NEGATIVE (NEGATIVE); PH,URINE 8.5 (5.0-9.0); UGLUCOSE 1+ (NEGATIVE)
[2019-06-17 14:05] LABS: APPEARANCE,URINE SLIGHTLY HAZY (CLEAR)
[2019-06-17 14:10] LABS: RBC,URINE NONE SEEN /HPF (0-5); YEAST,URINE Moderate /HPF (None Seen)
--- NOTE | 2019-06-17 15:15 | NUR ---
FAMILY AND VISITORS AT BEDSIDE. PT IS AWAKE, FOLLOWS COMMANDS. VSS. NO SIGNS OF DISTRESS AT THIS TIME.
[2019-06-17] MEDS: FLUCONAZOLE 200 MG/NS PREMIX 100 ML IV SCH (15:19)
--- NOTE | 2019-06-17 15:40 | NUR ---
DR. FARAH IN TO SEE AND EXAMINE PT. WILL FOLLOW UP ON ORDERS.
--- NOTE | 2019-06-17 16:04 | NUR ---
DR. FARAH ORDERED TO DISCONTINUE LASIX IF OK WITH FREELANCE WRITER. SPOKE WITH FELIX SERRATO TO DISCONTINUE LASIX. WILL CARRY OUT ORDER.
--- NOTE | 2019-06-17 18:01 | NUR ---
TURNED AND REPOSITIONED PT FOR COMFORT. PRESSURE AREAS OFF LOADED. BED BATH GIVEN. AT BEDSIDE. VSS. NO SOB OR OTHER DISTRESS NOTED AT THIS TIME.
--- NOTE | 2019-06-17 19:20 | NUR ---
FAMILY PRESENT AT PATIENT BEDSIDE. CHANGE OF SHIFT REPORT GIVEN BY DAY NURSE MARJ AT BEDSIDE. RT AT BEDSIDE GIVING PATIENT BREATHING TX. PATIENT TOLERATING WELL. PATIENT ALERT AND ORIENTED X3. MAINLY WOLOF SPEAKING. CLEAR LUNG SOUNDS WITH SYMMETRICAL RESPIRATIONS. SR ON MONITOR WITH REGULAR HR. NASAL CANNULA X2 LPM. PATIENT PICC LINE ON RIGHT UPPER ARM RUNNING HALF NS AT 20ML/HR. ASYMPT OF INFECTION. NO SWELLING. NO REDNESS. PATIENT HAS RECTAL TUBE PRESENT AND RUNNING SOFT BROWN STOOL. ACTIVE BS IN ALL 4 QUAD. PATIENT HAS MOON CATHETER PRESENT WITH YELLOW CLEAR URINE PRESENT IN TUBING. PER DAY SHIFT NURSE SKIN TEAR TO SACRAL AREA.PATIENT ABLE TO MAKE NEEDS KNOWN. PATIENT ABLE TO OBEY COMMANDS. BED IN LOWEST POSITION. AFEBRILE. SAFETY MEASURES IN PLACE. HOB 30 DEGREES. DENIES PAIN.
--- NOTE | 2019-06-17 19:37 | NUR ---
REPORT GIVEN TO NEURO UROLOGIST RN FOR CONTINUITY OF CARE. NO SIGNS OF DISTRESS NOTED AT THIS TIME.
[2019-06-17] MEDS ORDERED: Z-GUARD PASTE TP SCH (19:45)
--- NOTE | 2019-06-17 21:43 | NUR ---
NOTIFIED SONNY OF LANTUS INSULIN AND SLIDING SCALE WELL PATIENT NPO EXCEPT MEDS. SONNY AT BEDSIDE NOTIFIED HER THAT NO SWALLOW EVALUATION DONE. PATIENT REFUSED IT AT THIS TIME. WILL TRY AGAIN OR ENDORSE TO DAY SHIFT. PER DR DENNIS. HOLD OFF ON SLIDING SCALE AT THIS TIME. BS 174. WILL CONTINUE TO MONITOR.
--- NOTE | 2019-06-17 21:45 | NUR ---
PATIENT GIVEN MEDICATION VIA APPLESAUCE PO. OK PER MD DENNIS ORDERS TO TRY BEDSIDE SWALLOW TEST AT BEDSIDE. DAY SHIFT STATES TOLERATED APPLESAUCE AND CRUSHED UP MEDS WELL. PATIENT TOOK A FEW BITES AND STATES "DO LATER". NO COUGHING NOTED. CLEANED MOUTH AND DRIED SKIN OFF LIPS. PATIENT STATES "I FEEL BETTER" MEDICATION ADMINISTERED ORDERED. WILL CONTINUE TO MONITOR.
[2019-06-17] MEDS: INSULIN LANTUS 100 UNITS/ML 10 ML VIAL SUBQ SCH (22:02)
[2019-06-18] VITALS (10 sets, daily range): BP systolic 111–133; BP diastolic 70–82
--- NOTE | 2019-06-18 | NUR ---
PATIENT WOKE UP WHEN TAKEN TEMPERATURE. DENIES PAIN "IM OK" REFUSED TV. STATES "GOING TO SLEEP" WILL CONTINUE TO MONITOR.
--- NOTE | 2019-06-18 01:58 | NUR ---
PATIENT STATES "OK" WITH THUMBS UP. REPOSITIONING PATIENT WITH PATIENT ASSISTANCE. WILL CONTINUE TO MONITOR. NO S/S OF DISTRESS NOTED. "FEELS GOOD" WHEN REPOSITIONED
--- NOTE | 2019-06-18 03:40 | NUR ---
PATIENT DENIES PAIN. STATES "IM JUST TIRED" CLOSED HALF OF CURTAIN COVER TO AVOID LIGHTS. PATIENT STILL ABLE TO BE SEEN AT NURSING STATION. STATES "IM OK" WILL CONTINUE TO MONITOR. VSS. NO S/S OF DISTRESS OR SOB.
--- NOTE | 2019-06-18 04:40 | NUR ---
MORNING CARE PERFORMED. BED CHANGED. CLEANED PATIENT. CATHETER CARE. ORAL CARE. REPOSITIONED PATIENT. PATIENT STATES "MUCH BETTER" WILL CONTINUE TO MONITOR. TOLERATED WELL. NO S/S OF DISTRESS. NO SOB NOTED. NO NEW OPEN WOUNDS. CLEANED PREVIOUS SKIN TEAR. SEE WOUND CARE NOTES. PATIENT REQUESTS TO WATCH TV AT THIS TIME.
[2019-06-18] MEDS: PIPERACILLIN/TAZOBACTAM 3.375 GM in DEXTROSE 5% 50 ML IV SCH ×3 (04:53→21:45)
--- NOTE | 2019-06-18 05:00 | NUR ---
DR DENNIS AT BEDSIDE. ASKED IF BEDSIDE SWALLOW TEST WAS DONE. NOTIFIED HER PATIENT REQUESTED "LATER" D/T TIRED. NOTIFIED HER PATIENT IS DROWSY AT THIS TIME. STATES TO DO SWALLOW TEST IN AM WHEN MORE AWAKE. MD AT BEDSIDE. WILL ENDORSE TO DAY SHIFT. VSS. PATIENT STATES TV. WILL CONTINUE TO MONITOR
[2019-06-18] MEDS: NACL 0.45% 500 ML IV SCH (06:18)
[2019-06-18] MEDS: ALBUTEROL SULFATE/IPRATROPIU 3 ML SOL IH SCH ×3 (06:36→19:38)
--- NOTE | 2019-06-18 06:50 | NUR ---
PER DR RAMOS. HOLD COLACE. WOULD LIKE TO TAKE THE RECTAL TUBE OUT SOON. WILL CONTINUE TO MONITOR. NOTIFIED OF URINE OUTPUT.
[2019-06-18] MEDS ORDERED: VANCOMYCIN PER PHARMACY MC PRN (07:05)
--- NOTE | 2019-06-18 07:15 | NUR ---
BLOOD SUGAR CHECK DONE. 180. PER DR RAMOS(AT BEDSIDE) HOLD INSULIN AT THIS TIME. PATIENT NPO EXCEPT MEDS. WAITING ON SWALLOW EVALUATION. WILL CHANGE IVF.
--- NOTE | 2019-06-18 07:30 | NUR ---
RECEIVED BEDSIDE REPORT FROM PM RN. PT AWAKE, ALERT. ABLE TO MAKE NEEDS KNOWN. CZECH SPEAKING.PT LOOKS WEAK, PER PM SHIFT NURSE, PT DID NOT WANT TO TRY BEDSIDE SWALLOW EVALUATION. AFEBRILE. NO C/O PAIN. BEDSIDE MONITOR SHOWS SR. S1 S2 HEARD. PULSES PALPABLE TO ALL EXTREMITIES. CAP REFILL < 3 SEC. PT ON O2 AT 3 LPM/NC. LUNGS SOUND CLEAR BILATERALLY. NO S/S OF RESPIRATORY DISTRESS NOTED. PICC LINE TO RIGHT UPPER ARM RUNNING IVF 1/2 NS AT 20 ML/HR, RED LUMEN WAS CLOGGED AND PURPLE LUMEN IS PATENT. RECTAL BAG IN PLACE, BROWN STOOL NOTED. ABDOMEN FLAT, SOFT, NONTENDER, ACTIVE BOWEL SOUNDS. PER PM NURSE. DR. RAMOS VERBAL ORDERED TO HOLD COLACE DUE TO THEY WANT TO REMOVE RECTAL TUBE. MOON CATH IN PLACE DRAINING LIGHT YELLOW URINE TO GRAVITY. HOB 30 DEGREES. BED IN LOWEST POSITION . CALL LIGHT WITHIN REACH. WILL CONTINUE TO MONITOR.
[2019-06-18] MEDS: BLOOD GLUCOSE MONITORING 1 DEV DEV FS SCH ×4 (07:55→21:00)
--- NOTE | 2019-06-18 08:00 | NUR ---
DR. ROJAS'S GROUP MAKING ROUNDS. UPDATED PT'S CONDITION. PER DR. ROJAS, OK TO GIVE SOME JUICE AND APPLE SAUCE, THEY WILL ORDER FOOD ON WEDNESDAY AFTER SWALLOW RENEE.
[2019-06-18] MEDS: VANCOMYCIN 1,000 MG in DEXTROSE 5% 250 ML IV SCH (08:34)
[2019-06-18] MEDS: DOCUSATE 100 MG/10 ML UDC GT SCH ×2 (09:00→20:55)
[2019-06-18] MEDS: PANTOPRAZOLE 40 MG INJ VIAL IVP SCH (09:18)
[2019-06-18] MEDS: methylPREDNISolone SS 40 MG/ML VIAL IVP SCH ×2 (09:19→21:48)
[2019-06-18] MEDS: ATORVASTATIN 20 MG TAB PO SCH (09:19)
[2019-06-18] MEDS: ASPIRIN 81 MG TAB.CHEW PO SCH (09:19)
[2019-06-18] MEDS: LACTOBACILLUS RHAMNOSUS GG 1 EACH CAP PO SCH (09:19)
[2019-06-18 09:54] LABS: BASOPHILS % (AUTO) 0.1 % (0.0-2.0); EOSINOPHILS % (AUTO) 0.1 % (0.0-4.0); HEMATOCRIT 32.8 % (36-52); HEMOGLOBIN 10.4 g/dL (12.0-18.0); LYMPHOCYTES # (AUTO) 0.2 K/uL (2.0-11.5); MEAN CORPUSCULAR HEMOGLOBIN 30 pg (27-31); MEAN CORPUSCULAR HGB CONC 32 g/dL (33-37); MEAN CORPUSCULAR VOLUME 93.9 fL (80-94); MONOCYTES # (AUTO) 0.5 K/uL (0.8-1.0); MONOCYTES % (AUTO) 4.9 % (1.7-9.3); NEUTROPHILS # (AUTO) 10.3 K/uL (1.8-7.7); PLATELET COUNT (AUTO) 227 K/uL (140-450); RED BLOOD CELL COUNT(AUTO) 3.49 MIL/uL (4.20-6.10); RED CELL DISTRIBUTION WIDTH 14.6 % (11.6-13.7); WHITE BLOOD COUNT (AUTO) 11.1 K/uL (4.8-10.8)
[2019-06-18 10:12] LABS: ANION GAP 10.9 (8-16); CARBON DIOXIDE 29.8 mmol/L (21-32); CREATININE 1.3 mg/dL (0.7-1.3)
[2019-06-18 10:15] LABS: MAGNESIUM 2.1 mg/dL (1.8-2.4); PHOSPHORUS 3.2 mg/dL (2.5-4.9)
[2019-06-18 10:21] LABS: POTASSIUM 2.7 mmol/L (3.5-5.1)
[2019-06-18] MEDS: KCL 20 MEQ/WATER INJ PREMIX 100 ML IV SCH ×2 (10:39→12:50)
[2019-06-18] MEDS ORDERED: POTASSIUM CHLORIDE 20% 40 MEQ/15 ML UDC PO SCH ×2 (11:00→15:00)
[2019-06-18 11:15] LABS: NEUTROPHILS % (AUTO) 92.9 % (42.2-75.2)
[2019-06-18] MEDS: INSULIN LISPRO SLIDING SCALE 100 UNITS/ML VIAL SUBQ PRN ×2 (11:59→16:15)
--- NOTE | 2019-06-18 12:34 | NUR ---
06/18/19 RD FOLLOW UP COMPLETED PLEASE REFER TO NUTRITION PROGRESS NOTE UNDER CARE ACTIVITY FOR ESTIMATED NUTRITION NEEDS. RD RECOMMENDATIONS: RECOMMEND SWALLOW EVALUATION AND RECOMMENDATIONS PER ST. RD WILL F/U 2-3DAYS; HIGH RISK. ALEKSANDR LARSEN RD
--- NOTE | 2019-06-18 13:30 | NUR ---
DR. LOPEZ CAME IN TO CHECK PT, NOTIFIED HIM PT CRITICAL LAB REPORT. PER DR. LOPEZ, OK TO LET PT DRINK SOME WATER AND EAT APPLE SAUCE.
[2019-06-18] MEDS: DEXT 5% / NACL 0.45% 1,000 ML IV SCH (14:25)
--- NOTE | 2019-06-18 14:45 | NUR ---
IN TO CHECK PT. NOTIFIED LAB REPORT. PER DR. FARAH, GIVE PT 1/2 NS AT 70 CC/HR FOR 1 L THEN GO BACK TO 20 CC/HR. WILL CARRY OUT.
[2019-06-18] MEDS ORDERED: NACL 0.45% 1,000 ML IV SCH (14:55)
[2019-06-18] MEDS: FLUCONAZOLE 100 MG/NS PREMIX 50 ML IV SCH (15:28)
[2019-06-18 17:18] LABS: CARBON DIOXIDE 26.8 mmol/L (21-32); CREATININE 1.2 mg/dL (0.7-1.3); POTASSIUM 3.8 mmol/L (3.5-5.1)
--- NOTE | 2019-06-18 17:45 | NUR ---
PT resting in bed, no s/s of respiratory distress noted.
--- NOTE | 2019-06-18 19:30 | NUR ---
RECEIVED REPORT FROM JEREMY CRABTREE. INITIAL ASSESSMENT COMPLETED. PT IS AWAKE, ABLE TO FOLLOW SIMPLE COMMANDS. ATTACHED TO PAYROLL PROCESSOR, PULSE OXIMETER. O2 @ 2LPM VIA NASAL CANNULA. IV ACCESS PICCLINE RIGHT UPPER FOREARM IVF INFUSING. MOON CATH IN PLACE. RECTAL BAG IN PLACE. RECTAL BAG REPLACED WITH NEW ONE. BED IN LOW POSITION, SAFETY MEASURE ENSURE. WILL CONTINUE TO MONITOR.
--- NOTE | 2019-06-18 20:54 | NUR ---
DR. DENNIS SAID TO HOLD COLACE FOR TONIGHT. PATIENT WITH RECTAL BAG, WATERY BROWN STOOL.
--- NOTE | 2019-06-18 21:30 | NUR ---
FAMILY AT BEDSIDE.
--- NOTE | 2019-06-18 22:00 | NUR ---
DR. BRIGGS IN THE UNIT UPDATED OF PATIENT'S CONDITION. NO NEW ORDERS.
--- NOTE | 2019-06-18 22:15 | NUR ---
BSL 190 MG/ DL, DR. DENNIS NOTIFIED. PER DR. DENNIS SAID TO GIVE LANTUS BUT NO HUMALOG SLIDING SCALE.
[2019-06-18] MEDS: INSULIN LANTUS 100 UNITS/ML 10 ML VIAL SUBQ SCH (22:20)
--- NOTE | 2019-06-18 23:30 | NUR ---
DR. DENNIS IN THE UNIT, DR. DENNIS SAID OK TO GIVE APPLE SAUCE IF TOLERATED.
[2019-06-19] VITALS: BP 117/75
[2019-06-19 04:00] VITALS: BP 113/73
--- NOTE | 2019-06-19 05:10 | NUR ---
PATIENT ON GOING IVF 0.45 NS 1 L AT 70 CC HR COMPLETED, REMAINING IVF DECREASE TO 20 CC/HR ORDERED. Addendum: 06/19/19 at 0557 by Lior Romero RN PATIENT REMAINING IVF WAS NOT DECREASED TO 20CC/HR BUT PATIENT IVF CHANGED TO D5 1/2NS AT 20 CC/HR. Addendum: 06/19/19 at 0603 by Lior Romero RN ORDERED.
[2019-06-19] MEDS: PIPERACILLIN/TAZOBACTAM 3.375 GM in DEXTROSE 5% 50 ML IV SCH ×3 (05:14→22:32)
[2019-06-19] MEDS: DEXT 5% / NACL 0.45% 1,000 ML IV SCH (06:11)
[2019-06-19] MEDS: ALBUTEROL SULFATE/IPRATROPIU 3 ML SOL IH SCH ×3 (06:32→20:55)
--- NOTE | 2019-06-19 07:30 | NUR ---
REPORT GIVEN TO CHARGE NURSE JEREMY BRAND AND CHARGE NURSE JEREMY GILLESPIE. BLOOD SUGAR LEVEL 204 MG/DL ENDORSED TO VERNA. PATIENT WILL BE TRANSFERRED TO TELE UNIT ACCOMPANIED BY RN MEDICAL MANAGER.
--- NOTE | 2019-06-19 07:50 | NUR ---
RECEIVED PATIENT FROM ICU, REPORT GIVEN BY JONI LUNA. PATIENT ALERT AWAKE ORIENTED X3 NOT IN ANY DISTRESS NOTED. INITIAL ASSESSMENT INITIATED. PATIENT HAS PICC LINE WITH IVF ON GOING AND INFUSING WELL. WITH MOON CATHETER DRAINING TO YELLOWISH CLEAR OUTPUT. WITH RECTAL BAG INTACT.ORIENTED TO THE FLOOR, NEEDS ATTENDED. WILL CONTINUE TO MONITOR.
[2019-06-19] MEDS: BLOOD GLUCOSE MONITORING 1 DEV DEV FS SCH ×4 (07:57→22:30)
--- NOTE | 2019-06-19 07:59 | NUR ---
DR. TIDWELL SAID NOT TO GIVE SLIDING SCALE HUMALOG FOR 204 MG/DL BSL, PT IS ON NPO EXCEPT MEDS. CHARGE NURSE VERNA NOTIFIED.
[2019-06-19 08:51] LABS: EOSINOPHILS % (AUTO) 0.1 % (0.0-4.0); HEMOGLOBIN 10.8 g/dL (12.0-18.0); LYMPHOCYTES # (AUTO) 0.2 K/uL (2.0-11.5); LYMPHOCYTES % (AUTO) 2.1 % (20.5-51.1); MEAN CORPUSCULAR HEMOGLOBIN 31 pg (27-31); MEAN CORPUSCULAR HGB CONC 33 g/dL (33-37); MEAN CORPUSCULAR VOLUME 93.8 fL (80-94); MONOCYTES # (AUTO) 0.4 K/uL (0.8-1.0); MONOCYTES % (AUTO) 4.3 % (1.7-9.3); NEUTROPHILS # (AUTO) 9.4 K/uL (1.8-7.7); NEUTROPHILS % (AUTO) 93.5 % (42.2-75.2); PLATELET COUNT (AUTO) 199 K/uL (140-450); RED BLOOD CELL COUNT(AUTO) 3.52 MIL/uL (4.20-6.10); RED CELL DISTRIBUTION WIDTH 14.9 % (11.6-13.7); WHITE BLOOD COUNT (AUTO) 10.1 K/uL (4.8-10.8)
[2019-06-19 08:51] LABS: ANION GAP 11.7 (8-16); CARBON DIOXIDE 26.7 mmol/L (21-32); CREATININE 1.1 mg/dL (0.7-1.3); POTASSIUM 3.4 mmol/L (3.5-5.1)
[2019-06-19 08:54] VITALS: BP 117/77
[2019-06-19] MEDS: DOCUSATE 100 MG/10 ML UDC GT SCH ×2 (09:00→22:30)
[2019-06-19] MEDS: ATORVASTATIN 20 MG TAB PO SCH (09:31)
[2019-06-19] MEDS: PANTOPRAZOLE 40 MG INJ VIAL IVP SCH (09:31)
[2019-06-19] MEDS: methylPREDNISolone SS 40 MG/ML VIAL IVP SCH ×2 (09:31→22:33)
[2019-06-19] MEDS: ASPIRIN 81 MG TAB.CHEW PO SCH (09:32)
[2019-06-19] MEDS: LACTOBACILLUS RHAMNOSUS GG 1 EACH CAP PO SCH (09:32)
--- NOTE | 2019-06-19 10:25 | NUR ---
Clinicals faxed to [facility] .
[2019-06-19 10:33] LABS: PHOSPHORUS 3.2 mg/dL (2.5-4.9)
--- NOTE | 2019-06-19 10:38 | NUR ---
SEEN BY SPEECH THERAPIST AND SWALLOW EVAL DONE. RECOMMEND DIET, WILL CONTINUE TO MONITOR.
--- NOTE | 2019-06-19 11:06 | NUR ---
*S.T. Bedside swallow eval completed* See report for details. Pt presents with mod-severe oropharyngeal dysphagia c/b diminished oral prep and mastication of solids, with anterior spillage and residue post swallow, as well as consistent coughing response after swallows of thin liquid, nectar thick liquids and solids. Pt is at high risk for aspiration. Recommend: 1) Advance to pureed diet, honey thick liquids via controlled cup sips only. 2) S Kitchen to prepare bedside honey thick H2O for pt--not for nsg to prepare/supply, please. 3) P.O. meds crushed and mixed w/ puree such as applesauce. 4) S.T. to follow up 2x/1 week w/ P.O. trials to ensure tolerance of recommended diet textures and assess for possibility of texture advancement. 5) 1:1 feeder due to confusion and poor UE control. D/w pt and JEREMY Pendleton results/recommendations. Pt unable to comprehend. No family present at time of eval. Endorsed to JEREMY Pendleton. Time [id number]
[2019-06-19] MEDS: VANCOMYCIN 1,000 MG in DEXTROSE 5% 250 ML IV SCH (11:21)
[2019-06-19] MEDS ORDERED: POTASSIUM CHLORIDE 10 MEQ TABER PO SCH (12:00)
[2019-06-19 12:08] VITALS: BP 114/77
[2019-06-19] MEDS: INSULIN LISPRO SLIDING SCALE 100 UNITS/ML VIAL SUBQ PRN ×3 (12:29→22:48)
[2019-06-19] MEDS: NACL 0.45% 1,000 ML IV SCH (12:34)
--- NOTE | 2019-06-19 15:20 | NUR ---
Received report from nurse Helder. Pt resting in bed, aaox1, verbally responsive in bulgarian. Pt shows no signs of distress, rectal tube & miranda cath in place. Family member at bedside. Bed alarm on, call light within reach. Right upper arm PICC intact with ongoing NS@ 60ml/h. Addendum: 06/19/19 at 1927 by Brooklynn Liz RN Correction: Right upper arm PICC running 1/2NS @ 60ml/h.
[2019-06-19 16:00] VITALS: BP 108/72
[2019-06-19] MEDS: FLUCONAZOLE 100 MG/NS PREMIX 50 ML IV SCH (16:37)
--- NOTE | 2019-06-19 17:44 | NUR ---
Observed pt dangling left leg at edge of bed. Asked pt if he wants to get up, pt replies that he is ok & he just wants to put his leg down. Explained fall risk, verbalized understanding & agree to put leg up in bed. Bed alarm on. Call light within reach.
--- NOTE | 2019-06-19 19:25 | NUR ---
Pt resting in bed, no signs of distress, no c/o discomfort. Right upper arm PICC intact with ongoing NS @ 70ml/h. Bed alarm on, call light within reach. Will endorse to pm shift. Addendum: 06/19/19 at 1926 by Brooklynn Liz RN Correction: Right upper arm PICC running / NS @ 60ml/h.
[2019-06-19 20:40] VITALS: BP 108/68
--- NOTE | 2019-06-19 20:40 | NUR ---
SEEN PT AWAKE, ALERT ORIENTED TO SELF. FAMILY AT BEDSIDE. PER FAMILY, PT IS CONFUSED AND NOT MAKING ANY SENSE AND DOESN'T RECOGNIZED THEM. INITIAL ASSESSMENT DONE. PICC LINE ON RIGHT UPPER ARM NOTED W/ IVF INFUSING WELL. MOON CATH DRAINING WELL AND RECTAL TUBE DRAINING BROWN, THICK STOOL. VITAL SIGNS CHECKED. PT DENIES ANY PAIN PER FAMILY. PT REPOSITIONED FOR COMFORT. SAFETY REINFORCED. WILL CONTINUE TO MONITOR.
--- NOTE | 2019-06-19 22:30 | NUR ---
SEEN PT AWAKE, APPEARS COMFORTABLE. BLOOD SUGAR CHECKED:343. WILL COVER W/ SLIDING SCALE PLUS LANTUS ORDERED. SCHEDULED MEDICATIONS GIVEN ORDERED W/ TEACHINGS. IVF INFUSING WELL. PT REPOSITIONED FOR COMFORT. WILL CONTINUE TO MONITOR.
[2019-06-19] MEDS: INSULIN LANTUS 100 UNITS/ML 10 ML VIAL SUBQ SCH (22:49)
[2019-06-20] VITALS: BP 123/64
--- NOTE | 2019-06-20 00:30 | NUR ---
SEEN PT MOVING AROUND IN BED. PT'S RECTAL TUBE HAS SOME LEAKAGE. PERINEAL CARE RENDERED. PT REPOSITIONED FOR COMFORT. ENCOURAGED PT TO SLEEP. PT UNABLE TO FOLLOW INSTRUCTIONS. WILL CONTINUE TO MONITOR. BED ALARM TURNED ON.
--- NOTE | 2019-06-20 02:10 | NUR ---
PT STILL AWAKE MOVING IN BED. PT REPOSITIONED FOR COMFORT. WILL CONTINUE TO MONITOR.
--- NOTE | 2019-06-20 02:50 | NUR ---
SEEN PT AWAKE MOVING AROUND THE BED. PT HAD SOME STOOL LEAKING FROM RECTAL TUBE. PERICARE RENDERED. PT REPOSITIONED FOR COMFORT. IVF INFUSING WELL. WILL CONTINUE TO MONITOR.
[2019-06-20 04:45] VITALS: BP 131/79
--- NOTE | 2019-06-20 04:45 | NUR ---
SEEN PT AWAKE. VITAL SIGNS CHECKED. PT REPOSITIONED FOR COMFORT. BED ALARM TURNED ON.
[2019-06-20] MEDS: PIPERACILLIN/TAZOBACTAM 3.375 GM in DEXTROSE 5% 50 ML IV SCH ×3 (06:29→21:15)
[2019-06-20] MEDS: NACL 0.45% 1,000 ML IV SCH (06:30)
--- NOTE | 2019-06-20 06:40 | NUR ---
PT KEEPS MOVING AROUND THE BED. PT REPOSITIONED FOR COMFORT. BLOOD DRAWN ON PICC LINE. BLOOD SUGAR CHECKED:228. WILL COVER W/ INSULIN PER SLIDING SCALE. SAFETY REINFORCED.
[2019-06-20] MEDS: BLOOD GLUCOSE MONITORING 1 DEV DEV FS SCH ×4 (06:46→21:06)
[2019-06-20] MEDS: INSULIN LISPRO SLIDING SCALE 100 UNITS/ML VIAL SUBQ PRN ×4 (06:47→21:11)
[2019-06-20] MEDS: ALBUTEROL SULFATE/IPRATROPIU 3 ML SOL IH SCH ×3 (07:16→20:35)
--- NOTE | 2019-06-20 07:20 | NUR ---
REPORT RECEIVED FROM MAGNOLIA LUU PETER APPEARS COMFPRTABLE, RECEIVING O2 @2LPM VIA NC, MOON CATHETER IN PLACE DRAINING YELLOW URINE, RECTAL TUBE IN PLACE DRAINING BROWN STOOL. NO S/S OF ACUTE DISTRESS NOTED, CALL LIGHT AND PERSONAL ITEMS WITHIN EASY REACH, SAFETY MEASURES IN PLACE, FALL PRECAUTIONS IN PLACE WILL CONTINUE TO MONITOR.
--- NOTE | 2019-06-20 07:40 | NUR ---
REPORT GIVEN TO DAYSHIFT NURSE.
[2019-06-20 07:43] LABS: EOSINOPHILS % (AUTO) 0.1 % (0.0-4.0); HEMOGLOBIN 9.2 g/dL (12.0-18.0); LYMPHOCYTES # (AUTO) 0.1 K/uL (2.0-11.5); LYMPHOCYTES % (AUTO) 1.2 % (20.5-51.1); MEAN CORPUSCULAR HEMOGLOBIN 31 pg (27-31); MEAN CORPUSCULAR HGB CONC 33 g/dL (33-37); MEAN CORPUSCULAR VOLUME 92.8 fL (80-94); MONOCYTES # (AUTO) 0.4 K/uL (0.8-1.0); MONOCYTES % (AUTO) 3.4 % (1.7-9.3); NEUTROPHILS % (AUTO) 95.3 % (42.2-75.2); PLATELET COUNT (AUTO) 153 K/uL (140-450); RED BLOOD CELL COUNT(AUTO) 3.02 MIL/uL (4.20-6.10); RED CELL DISTRIBUTION WIDTH 14.9 % (11.6-13.7); WHITE BLOOD COUNT (AUTO) 10.5 K/uL (4.8-10.8)
[2019-06-20 08:00] VITALS: BP 112/79
[2019-06-20 08:47] LABS: MAGNESIUM 1.9 mg/dL (1.8-2.4); PHOSPHORUS 2.6 mg/dL (2.5-4.9)
[2019-06-20 09:02] LABS: POTASSIUM 3.4 mmol/L (3.5-5.1)
[2019-06-20 09:03] LABS: ANION GAP 13.8 (8-16); CARBON DIOXIDE 22.6 mmol/L (21-32); CREATININE 1.4 mg/dL (0.7-1.3)
[2019-06-20] MEDS ORDERED: FUROSEMIDE 40 MG/4 ML VIAL IVP SCH (09:10)
[2019-06-20] MEDS ORDERED: POTASSIUM CHLORIDE 10 MEQ TABER PO SCH (09:15)
[2019-06-20] MEDS ORDERED: METH4TAB1 PO (09:18)
[2019-06-20] MEDS ORDERED: FURO-572 PO (09:18)
[2019-06-20] MEDS: DOCUSATE 100 MG/10 ML UDC GT SCH ×2 (10:03→21:31)
[2019-06-20] MEDS: methylPREDNISolone SS 40 MG/ML VIAL IVP SCH ×2 (10:03→21:31)
[2019-06-20] MEDS: PANTOPRAZOLE 40 MG INJ VIAL IVP SCH (10:03)
[2019-06-20] MEDS: ATORVASTATIN 20 MG TAB PO SCH (10:04)
[2019-06-20] MEDS: LACTOBACILLUS RHAMNOSUS GG 1 EACH CAP PO SCH (10:04)
[2019-06-20] MEDS: ASPIRIN 81 MG TAB.CHEW PO SCH (10:05)
--- NOTE | 2019-06-20 10:15 | NUR ---
PT AWAKE A/O X1 WITH CONFUSION, ABLE TO COMMUNICATE SOME NEEDS, PT DENIES PAIN, NO S/S OF ACUTE DISTRESS NOTED CALL LIGHT AND PERSONAL ITEMS WITHIN EASY REACH, SAFETY AND FALL PRECAUTIONS IN PLACE, WILL CONTINUE TO MONITOR.
[2019-06-20] MEDS: VANCOMYCIN 1,000 MG in DEXTROSE 5% 250 ML IV SCH (11:31)
--- NOTE | 2019-06-20 11:38 | NUR ---
Clinicals faxed to [facility].
[2019-06-20 12:00] VITALS: BP 131/83
--- NOTE | 2019-06-20 13:00 | NUR ---
PT AWAKE A/OX1 REMAINS CONFUSED BUT ABLE TO COMMUNICATE SOME NEEDS, PT DAUGHTER ANSON AT BEDSIDE, NOTIFIED TO FOLLOW UP AT ADMITTING WINDOW TO VERIFY RECIEPT SIGNATURES OF ADMISSION DOCUMENTS. PT DENIES PAIN, NO S/S OF PAIN OR SOB NOTED, NO S/S OF ACUTE DISTRESS NOTED PAIN. CALL LIGHT AND PERSONAL ITEMS WITHIN EASY REACH, SAFETY MEASURES AND FALL PRECAUTIONS REMAIN IN PLACE, WILL CONTINUE TO MONITOR.
--- NOTE | 2019-06-20 14:24 | NUR ---
*S.T. Treatment Note* S: Pt seen at bedside w/ daughter present. Lunch tray at bedside, mostly unconsumed except for canned fruit. An empty juice box was present on tray table, that was not thickened. Pitcher empty; no bedside thickened water present. Daughter appeared unaware that pt was on a modified texture diet. O: P.O. trials honey thick water via straw, cup sip and spoon sips. P.O. trials puree from lunch tray (chicken) via spoon. A: Pt is impulsive, drinking very large quantities of honey thick liquid from straw despite verbal cues to slow down. Delayed coughing observed after swallows of honey thick liquid from straw. Improved with externally paced, small controlled cup sips. No overt s/s aspiration observed w/ P.O. trials puree. P: Recommend continue pureed diet, honey thick liquids. NO STRAWS. CONTROLLED CUP SIPS BY 1:1 FEEDER ONLY. [facility] kitchen to provide honey thick drinking water for bedside table--nsg pls call [facility] to order. Endorsed to JEREMY Pedroza. Time [id number]
--- NOTE | 2019-06-20 14:57 | NUR ---
Clinicals faxed to [facility] .
--- NOTE | 2019-06-20 15:07 | NUR ---
06/20/19 RD FOLLOW UP COMPLETED PLEASE REFER TO NUTRITION ASSESSMENT UNDER CARE ACTIVITY FOR ESTIMATED NUTRITIONAL NEEDS. 1. CONTINUE PUREE DIET TOLERATED 2. RD TO FOLLOW-UP 3-5 DAYS, MODERATE RISK DANIEL ROBERTS RD
[2019-06-20 16:00] VITALS: BP 117/70
--- NOTE | 2019-06-20 16:00 | NUR ---
PT SLEEPING AT THIS TIME, APPEARS COMFORTABLE, NO S/S OF ACUTE DISTYRESS NOTED, CALL LIGHT AND PERSONAL ITEMS WITHIN EASY REACH, SAFETY M FALL PRECAUTIONS IN PLACE, WILL CONTINUE TO [facility]ST[facility]
--- NOTE | 2019-06-20 16:22 | NUR ---
Spoke with Lavinia from [facility] and they are not accepting emergency medical.
--- NOTE | 2019-06-20 16:26 | NUR ---
Clinicals faxed to [facility] , [facility] ,
--- NOTE | 2019-06-20 16:59 | NUR ---
Spoke with Matt murray from [facility] , they don't accept restricted Medical. Pt denied for LTAC.
[2019-06-20] MEDS: FLUCONAZOLE 100 MG/NS PREMIX 50 ML IV SCH (17:24)
--- NOTE | 2019-06-20 19:05 | NUR ---
PT SLEEPING AT THIS TIME, APPEARS COMFORTABLE. FAMILY AT BEDSIDE, CALL LIGHT AND PERSONAL ITEMS WITHIN EASY REACH, SAFETY MEASURES IN PLACE, REPORT ENDORSED TO ONCOMING NURSE MARYANN
--- NOTE | 2019-06-20 19:18 | NUR ---
RECEIVED BEDSIDE REPORT FROM AM SHIFT RN. PT IS AWAKE, ALERT AND ORIENTED X1 PT MUMBLING TO HIMSELF W/ SOME CONFUSION NOTED. PT GEORGIAN SPEAKING BUT FAMILY AT BEDSIDE TO INTERPRET. AFEBRILE. NO C/O PAIN. MEDSURG PATIENT. BREATHING EVEN AND UNLABORED. NO SOB NOTED. PICC LINE TO RIGHT UPPER ARM ASYMPTOMATIC, PATENT AND INTACT,SALINE LOCK. ABDOMEN FLAT, SOFT, NONTENDER, BOWEL SOUNDS PRESENT X [address] QUADRANTS. MOON CATH IN PLACE DRAINING LIGHT YELLOW URINE TO GRAVITY. RECTAL BAG IN PLACE, BROWN STOOL NOTED. HOB 30 DEGREES. BED IN LOWEST POSITION WITH BED ALARM ON. FALL RISK PRECAUTIONS MAINTAINED. CALL LIGHT WITHIN REACH. NO SIGNS OF DISTRESS NOTED AT THIS TIME. WILL CONTINUE TO MONITOR.
--- NOTE | 2019-06-20 19:19 | NUR ---
PT'S RECTAL BAG LEAKING (BAG ITSELF) AND STOOL COMING OUT FROM THE RECTAL TUBE. WILL NEED TO CHANGE THE BAG, WILL FOLLOW UP LATER
--- NOTE | 2019-06-20 20:00 | NUR ---
PT WAS HERE SINCE 06/16/19, INFORMED DR. ORR; WOUND CONSULT ORDERED BY DR. ORR AND WOUND CARE TREATMENT. PLACED THE ORDER PER DR. ORR. CARRIED OUT ORDER Addendum: 06/20/19 at 2222 by Pavithra Garcia RN AMEND TO 06/12/19 Addendum: 06/21/19 at 0142 by Pavithra Garcia RN PT WAS HERE SINCE 06/01/19
--- NOTE | 2019-06-20 20:35 | NUR ---
RECEIVED PT ON 2L NC, SPO2 94%, BREATH SOUNDS: CLEAR. NO RESPIRATORY DISTRESS NOTED AT THIS TIME. TX GIVEN ORDERED. PT TOLERATED TX WELL. NO ADVERSE REACTION. WILL CONTINUE TO MONITOR PT.
[2019-06-20] MEDS: INSULIN LANTUS 100 UNITS/ML 10 ML VIAL SUBQ SCH (21:08)
[2019-06-20] MEDS ORDERED: Z-GUARD PASTE TP ONE (21:47)
--- NOTE | 2019-06-20 21:50 | NUR ---
PT TRYING TO GET UP ON BED, PLACED PT BACK IN COMFORTABLE POSITION BY GRANT MANAGER AND CHARGE NURSE, WILL MONITOR PT.
--- NOTE | 2019-06-20 23:00 | NUR ---
PT CLEANED AND CHANGED, TURNED TO SIDE.
--- NOTE | 2019-06-20 23:55 | NUR ---
PT CLEANED AND TURNED TO SIDE; WILL CHECK PT FREQUENTLY
[2019-06-21 04:00] VITALS: BP 101/69
[2019-06-21] MEDS: PIPERACILLIN/TAZOBACTAM 3.375 GM in DEXTROSE 5% 50 ML IV SCH ×2 (05:34→15:19)
[2019-06-21] MEDS: BLOOD GLUCOSE MONITORING 1 DEV DEV FS SCH ×3 (06:05→16:30)
[2019-06-21] MEDS: INSULIN LISPRO SLIDING SCALE 100 UNITS/ML VIAL SUBQ PRN (06:07)
--- NOTE | 2019-06-21 07:20 | NUR ---
RECEIVED REPORT FROM MICROBIOLOGY MANAGER NURSE MARYANN FOR CONTINUITY OF CARE. PT IN STABLE CONDITION. RESPIRATIONS EVEN AND UNLABORED, ROOM AIR. IV ACCESS INTACT AND PATENT. SAFETY MEASURES IN PLACE. BED IN LOW POSITION. BED ALARM ON. CALL LIGHT AT BEDSIDE. WILL CONTINUE TO MONITOR.
[2019-06-21] MEDS: ALBUTEROL SULFATE/IPRATROPIU 3 ML SOL IH SCH ×3 (07:34→19:00)
[2019-06-21 07:43] LABS: HEMATOCRIT 27.2 % (36-52); LYMPHOCYTES # (AUTO) 0.1 K/uL (2.0-11.5); LYMPHOCYTES % (AUTO) 1.1 % (20.5-51.1); MEAN CORPUSCULAR HEMOGLOBIN 31 pg (27-31); MEAN CORPUSCULAR HGB CONC 33 g/dL (33-37); MEAN CORPUSCULAR VOLUME 93.2 fL (80-94); MONOCYTES # (AUTO) 0.1 K/uL (0.8-1.0); MONOCYTES % (AUTO) 1.2 % (1.7-9.3); NEUTROPHILS # (AUTO) 10.2 K/uL (1.8-7.7); NEUTROPHILS % (AUTO) 97.7 % (42.2-75.2); PLATELET COUNT (AUTO) 142 K/uL (140-450); RED BLOOD CELL COUNT(AUTO) 2.92 MIL/uL (4.20-6.10); RED CELL DISTRIBUTION WIDTH 15.3 % (11.6-13.7); WHITE BLOOD COUNT (AUTO) 10.4 K/uL (4.8-10.8)
[2019-06-21] MEDS ORDERED: ATOR20TA PO ×2 (08:34→09:50)
[2019-06-21] MEDS: ATORVASTATIN 20 MG TAB PO SCH (09:10)
[2019-06-21] MEDS: DOCUSATE 100 MG/10 ML UDC GT SCH (09:10)
[2019-06-21] MEDS: LACTOBACILLUS RHAMNOSUS GG 1 EACH CAP PO SCH (09:10)
[2019-06-21] MEDS: ASPIRIN 81 MG TAB.CHEW PO SCH (09:10)
[2019-06-21] MEDS: methylPREDNISolone SS 40 MG/ML VIAL IVP SCH (09:11)
[2019-06-21] MEDS: PANTOPRAZOLE 40 MG INJ VIAL IVP SCH (09:11)
[2019-06-21] MEDS ORDERED: FUROSEMIDE 40 MG/4 ML VIAL IVP SCH (09:15)
--- NOTE | 2019-06-21 09:16 | NUR ---
Spoke with Lavinia from [facility] [employer] [facility] no beds available.
--- NOTE | 2019-06-21 09:38 | NUR ---
GAVE ORDERED DUE MEDICATIONS AT THIS TIME WITH HONEY THICK LIQUIDS. PT TOLERATED WELL.
[2019-06-21] MEDS ORDERED: METH4TAB1 PO (09:50)
[2019-06-21] MEDS ORDERED: FURO-572 PO (09:50)
[2019-06-21 09:51] LABS: ANION GAP 13.7 (8-16); CARBON DIOXIDE 22.1 mmol/L (21-32); POTASSIUM 3.8 mmol/L (3.5-5.1)
[2019-06-21 09:52] LABS: CREATININE 1.2 mg/dL (0.7-1.3)
--- NOTE | 2019-06-21 10:38 | NUR ---
REASON FOR EVALUATION: SACRALCOCCYX WOUND SKIN ASSESSMENT DONE WITH THIS 58 Y/O MALE PT, PT IS AWAKE ORIENTED X4, SKIN IS WARM AND DRY, BLE HAIR GROWTH, NO EDEMA. DORSAL PEDAL PULSES PRESENT AND NORMAL. CAPILLARY REFILLED < 2 SEC. X [address] PL[address] WITH SEEPING OF LOOSE STOOL DURING ASSESSMENT PRIMARY RN NOTIFIED. F/C PATENT WITH SMALL AMOUNT YELLOW COLOR URINE OUT PUT OBSERVED. PLAN OF CARE DISCUSSED WITH PT. , PRIMARY RN. AND DR. TIDWELL. ALL QUESTIONS ANSWERED, PT. VERBALIZES UNDERSTANDING. GAMBIAN TRANSLATED BY [facility] STAFF. INTEGUMENTARY: -PRESSURE ULCER STAGE 2 TO SACROCOCCYX TOWARD RIGHT INNER BUTTOCK 2X2X0.1 CM, WOUND BED MOIST AND PINK NO ODOR, NO S/S OF INFECTION. SEAN-WOUND SKIN MOIST, INTACT. RECOMMENDATIONS: -CLEANSE SACROCOCCYX WOUND WITH NS, PAT DRY, APPLY Z GUARD AND FOAM DRESSING DAILY AND PRN IF SOILING PREVENTION -OFFLOAD BILATERAL HEELS BY PLACING PILLOWS UNDER CALVES UNLESS OTHERWISE CONTRAINDICATED -PRESSURE REDISTRIBUTION SURFACE THERAPY -TURN AND REPOSITION Q2H, OFFLOAD SACRALCOCCYX AND BUTTOCKS BY TURNING RIGHT AND LEFT -CONTINUE TO FOLLOW RD RECOMMENDATIONS ALL ABOVE RECOMMENDATIONS DISCUSSED WITH PRIMARY RN. WILL FOLLOW UP PT Q7-10 DAYS. PLEASE CONTACT WOUND CARE NURSE FOR ANY QUESTION AND CHANGE OF WOUND CONDITION.
--- NOTE | 2019-06-21 10:45 | NUR ---
Spoke with Blake LUNA clinical coordinator from [facility] . They will take pt for [facility] for PT. They will visit pt tomorrow.
[2019-06-21] MEDS: VANCOMYCIN 1,000 MG in DEXTROSE 5% 250 ML IV SCH (11:51)
--- NOTE | 2019-06-21 11:59 | NUR ---
SPOKE WITH FAMILY AT BEDSIDE, REQUESTED TO SPEAK WITH CASE MANAGEMENT. TAYLOR FROM CASE MANAGEMENT IS AWARE.
[2019-06-21 12:08] LABS: MAGNESIUM 2.1 mg/dL (1.8-2.4); PHOSPHORUS 3.4 mg/dL (2.5-4.9)
--- NOTE | 2019-06-21 12:16 | NUR ---
Clinicals faxed to several SNF and no reply. aware and pt will be discharge to home with [facility] for continued PT.
--- NOTE | 2019-06-21 13:15 | NUR ---
PT LYING IN BED IN STABLE CONDITION AT THIS TIME. BED IN LOW POSITION. BED ALARM ON. CALL LIGHT AT BEDSIDE. WILL CONTINUE TO MONITOR.
--- NOTE | 2019-06-21 15:22 | NUR ---
PT LYING IN BED SLEEPING AT THIS TIME. BED ALARM ON. CALL LIGHT AT BEDSIDE. WILL CONTINUE TO MONITOR.
[2019-06-21] MEDS: FLUCONAZOLE 100 MG/NS PREMIX 50 ML IV SCH (17:42)
--- NOTE | 2019-06-21 18:01 | NUR ---
FAMILY ARRIVED WITHOUT CLOTHES TO TAKE PT HOME. OTHER FAMILY MEMBERS CALLED TO BRING CLOTHING FOR PT. BED ALARM ON. CALL LIGHT AT BEDSIDE. WILL CONTINUE TO MONITOR.
--- NOTE | 2019-06-21 19:15 | NUR ---
GAVE DISCHARGE INSTRUCTIONS AND TO GUIDE RAIL CLEANER PRESCRIPTIONS AT HOME PHARMACY, PT AND FAMILY VERBALIZED UNDERSTANDING. REMOVED PICC LINE, LUMEN INTACT. REMOVED RECTAL BAG, PT TOLERATED WELL. REMOVED ID BAND. PT WHEELED TO LOBBY IN WHEELCHAIR IN STABLE CONDITION WHERE FAMILY WAS WAITING WITH VEHICLE.
== END 2019-06-21 19:15 | disposition home health service (06) | DRG 720 ==
LOC: MED 15:33 → MTU 18:19 → MIC 06-03 01:20 → MTU 06-19 07:45
PROVIDERS: ADMIT General Practice; ATTEND General Practice
PROC: 0B9J8ZX Drainage of Left Lower Lung Lobe, Via Natural or Artificial Opening Endoscopic, Diagnostic (ICD-10-PCS; principal; 2019-06-04)
PROC: 5A1955Z Respiratory Ventilation, Greater than 96 Consecutive Hours (ICD-10-PCS; 2019-06-04)
PROC: 0B9F8ZX Drainage of Right Lower Lung Lobe, Via Natural or Artificial Opening Endoscopic, Diagnostic (ICD-10-PCS; 2019-06-04)
PROC: 0BH17EZ Insertion of Endotracheal Airway into Trachea, Via Natural or Artificial Opening (ICD-10-PCS; 2019-06-04)
PROC: 02HV33Z Insertion of Infusion Device into Superior Vena Cava, Percutaneous Approach (ICD-10-PCS; 2019-06-04)
PROC: B548ZZA Ultrasonography of Superior Vena Cava, Guidance (ICD-10-PCS; 2019-06-04)
DX: A41.9 Sepsis, unspecified organism (principal); I21.A1 Myocardial infarction type 2; J96.01 Acute respiratory failure with hypoxia; J69.0 Pneumonitis due to inhalation of food and vomit; E43 Unspecified severe protein-calorie malnutrition; N17.0 Acute kidney failure with tubular necrosis; R65.21 Severe sepsis with septic shock; I27.21 Secondary pulmonary arterial hypertension; E83.39 Other disorders of phosphorus metabolism; I95.9 Hypotension, unspecified; I50.43 Acute on chronic combined systolic (congestive) and diastolic (congestive) heart failure; E87.8 Other disorders of electrolyte and fluid balance, not elsewhere classified; R13.11 Dysphagia, oral phase; E11.9 Type 2 diabetes mellitus without complications; E78.00 Pure hypercholesterolemia, unspecified; E78.5 Hyperlipidemia, unspecified; E87.0 Hyperosmolality and hypernatremia; I11.0 Hypertensive heart disease with heart failure; I25.10 Atherosclerotic heart disease of native coronary artery without angina pectoris; K21.9 Gastro-esophageal reflux disease without esophagitis; N39.0 Urinary tract infection, site not specified; K59.00 Constipation, unspecified; E83.42 Hypomagnesemia; B37.9 Candidiasis, unspecified; Z68.29 Body mass index [BMI] 29.0-29.9, adult; Z86.73 Personal history of transient ischemic attack (TIA), and cerebral infarction without residual deficits; Z87.891 Personal history of nicotine dependence; Z95.5 Presence of coronary angioplasty implant and graft
CPT/HCPCS: 36415; 36600; 71045; 71250; 74018; 74022; 76604; 76705; 80048; 80053; 80202; 80305; 81001; 81003; 82140; 82150; 82272; 82553; 82803; 82948; 83036; 83605; 83690; 83735; 83880; 84100; 84436; 84439; 84443; 84479; 84484; 85025; 85610; 85651; 85730; 86140; 86430; 87040; 87070; 87075; 87081; 87086; 87205; 87804; 88305; 89220; 92526; 92610; 93005; 94002; 94003; 94640; 94660; 96361; 96365; 97110; 97112; 97116; 97161-GP; 97164; 97530; 99285; A4330; C1751; C9113; J0456; J0696; J1120; J1450; J1644; J1815; J1940; J1956; J2060; J2250; J2270; J2543; J2704; J2920; J2930; J3010; J3370; J3475; J3480; J3490; J7030; J7060; J7620; P9046; Q0092